=== PATIENT | male | born 1965 | race Two or more races ===

== ENCOUNTER 2021-04-25 14:59 | Outpatient (REF) | payer OTHER, SELFPAY ==
--- NOTE | ~2021-04-25 | XR_ITS ---
EXAMINATION: RIGHT ELBOW, RIGHT FOREARM AND RIGHT HAND X-RAY CLINICAL INFORMATION: Elbow pain. Paresthesias of the skin in the hand and forearm COMPARISON: None TECHNIQUE: 3 views of the right elbow, 2 views of the right forearm 3 views of the right hand FINDINGS: Right elbow: Bone alignment is normal. No fracture or dislocation is seen. Joint spaces are normal. There is no joint effusion. There is a small osteophyte or spur at the triceps tendon insertion to the olecranon. Right forearm: Bone alignment is normal. No fracture or dislocation is seen. Joint spaces are normal. Soft tissues are normal. Right hand: Bone alignment is normal. No fracture or dislocation is seen. Joint spaces are normal. Soft tissues are normal. XR/XR hand RT min 3V IMPRESSION: Small olecranon osteophyte at the triceps tendon insertion. Unremarkable forearm and right hand.
--- NOTE | ~2021-04-25 | XR_ITS ---
EXAMINATION: RIGHT ELBOW, RIGHT FOREARM AND RIGHT HAND X-RAY CLINICAL INFORMATION: Elbow pain. Paresthesias of the skin in the hand and forearm COMPARISON: None TECHNIQUE: 3 views of the right elbow, 2 views of the right forearm 3 views of the right hand FINDINGS: Right elbow: Bone alignment is normal. No fracture or dislocation is seen. Joint spaces are normal. There is no joint effusion. There is a small osteophyte or spur at the triceps tendon insertion to the olecranon. Right forearm: Bone alignment is normal. No fracture or dislocation is seen. Joint spaces are normal. Soft tissues are normal. Right hand: Bone alignment is normal. No fracture or dislocation is seen. Joint spaces are normal. Soft tissues are normal. XR/XR forearm RT 2V IMPRESSION: Small olecranon osteophyte at the triceps tendon insertion. Unremarkable forearm and right hand.
--- NOTE | ~2021-04-25 | XR_ITS ---
EXAMINATION: RIGHT ELBOW, RIGHT FOREARM AND RIGHT HAND X-RAY CLINICAL INFORMATION: Elbow pain. Paresthesias of the skin in the hand and forearm COMPARISON: None TECHNIQUE: 3 views of the right elbow, 2 views of the right forearm 3 views of the right hand FINDINGS: Right elbow: Bone alignment is normal. No fracture or dislocation is seen. Joint spaces are normal. There is no joint effusion. There is a small osteophyte or spur at the triceps tendon insertion to the olecranon. Right forearm: Bone alignment is normal. No fracture or dislocation is seen. Joint spaces are normal. Soft tissues are normal. Right hand: Bone alignment is normal. No fracture or dislocation is seen. Joint spaces are normal. Soft tissues are normal. XR/XR elbow RT 2V IMPRESSION: Small olecranon osteophyte at the triceps tendon insertion. Unremarkable forearm and right hand.
== END 2021-04-25 15:00 | disposition home or self-care (01) ==
LOC: HO.XRAY 14:59
PROVIDERS: PCP Nurse Practitioner Primary Care; Visit Provider Registered Nurse
DX: M25.521 Pain in right elbow (principal); R20.0 Anesthesia of skin; R20.2 Paresthesia of skin
CPT/HCPCS: 73070; 73090; 73130

== ENCOUNTER 2021-08-14 14:49 | Outpatient (REF) | payer OTHER, SELFPAY ==
[2021-08-14 16:53] LABS: Hematocrit 44.5 % (42-52); Hemoglobin 14.9 g/dl (14.0-18.0); Mean Corpuscular HGB Conc 33.5 g/dl (31.0-36.0); Mean Corpuscular Hemoglobin 31.5 pg (27.0-33.0); Mean Corpuscular Volume 94.1 fL (80-98); Mean Platelet Volume 12.7 fL (9.4-12.4); Platelet Count 170 X10*3/uL (160-400); Red Blood Count 4.73 X10*6/uL (4.60-5.80); Red Cell Distribution Width 13.5 % (11.0-16.0); White Blood Count 12.1 X10*3/uL (4.8-10.8)
[2021-08-14 17:17] LABS: Alanine Aminotransferase 22 U/L (0-40); Albumin Level 4.5 g/dL (3.5-5.0); Alkaline Phosphatase 96 U/L (39-117); Anion Gap 12 (12-20); Aspartate Amino Transferase 47 U/L (5-37); Bilirubin Total 0.4 mg/dL (0.0-1.0); Blood Urea Nitrogen 11 mg/dL (9-16); C Reactive Protein 1.47 mg/dL (< or = 0.50); Calcium 9.4 mg/dL (8.4-10.2); Carbon Dioxide 25 mmol/L (22-29); Chloride 106 mmol/L (96-108); Estimated Glomerular Filt Rate > 60; Glucose Random 95 mg/dL (60-115); Lipase 19 U/L (8-78); Potassium 4.2 mmol/L (3.3-5.1); Sodium 139 mmol/L (135-145); Total Protein 7.6 g/dL (6.5-8.0)
[2021-08-14 17:48] LABS: Folate 10.7 ng/mL (> or = 4.0); Vitamin B12 254 pg/mL (200-900)
[2021-08-18 15:21] LABS: Vitamin D 25-OH, D2 <4 ng/mL; Vitamin D 25-OH, D3 24 ng/mL; Vitamin D 25-OH, Total 24 ng/mL (30-100)
== END 2021-08-14 14:50 | disposition home or self-care (01) ==
LOC: HO.LAB 14:49
PROVIDERS: PCP Nurse Practitioner Primary Care; Referring Provider Nurse Practitioner Primary Care; Visit Provider Nurse Practitioner Family
DX: K21.9 Gastro-esophageal reflux disease without esophagitis (principal); R19.7 Diarrhea, unspecified; R14.0 Abdominal distension (gaseous); K58.0 Irritable bowel syndrome with diarrhea; K58.9 Irritable bowel syndrome, unspecified; E55.9 Vitamin D deficiency, unspecified
CPT/HCPCS: 36415; 80053; 82306; 82607; 82746; 83690; 84443; 85027; 86140; 99202

== ENCOUNTER 2021-08-16 08:06 | Outpatient (REF) | payer OTHER, SELFPAY ==
--- NOTE | ~2021-08-16 | CT_ITS ---
EXAMINATION: CT ABDOMEN AND PELVIS WITH CONTRAST CLINICAL INFORMATION: Abdominal pain COMPARISON: None TECHNIQUE: Multidetector volumetric images were obtained from the superior aspect of the liver through the pubic symphysis following administration 85 mL of Omnipaque 350 intravenous contrast. Sagittal and coronal reformatted images were obtained on the technologist's workstation. Oral contrast: Yes This CT examination was performed using dose optimization techniques as appropriate, variously including the following: *Automated exposure control *Adjustment of mA and/or kV according to patient size (this includes techniques or standardized protocols for targeted exams where dose is matched to indication/reason for exam; i.e. extremities or head) *Use of iterative reconstruction technique DLP: 275 mGy-cm FINDINGS: LUNG BASES: There is a 5 mm peripheral or subpleural left lower lobe nodule. The lung bases are otherwise clear. LIVER, GALLBLADDER, AND BILIARY TREE: The liver is normal in size, shape, and attenuation. No focal hepatic lesion or biliary ductal dilatation is present. The gallbladder is unremarkable with no evidence of radiopaque gallstones, gallbladder wall thickening, or obvious pericholecystic inflammatory changes. PANCREAS: Unremarkable. SPLEEN: Unremarkable. ADRENAL GLANDS: Unremarkable. KIDNEYS AND URETERS: There are bilateral renal cysts. Largest cyst measures 3 cm in the upper pole of the right kidney. No imaging follow-up needed. There is a small 3 mm right lower pole renal stone. The kidneys are otherwise unremarkable. BLADDER: Unremarkable. GASTROINTESTINAL TRACT: There is stool throughout the colon suggestive of constipation. The small and large bowel are unremarkable. The appendix is unremarkable. ABDOMINAL WALL: No significant hernia is appreciated. LYMPH NODES: Normal. VASCULAR: There is evidence of atherosclerotic disease. Vascular structures are otherwise unremarkable. PELVIC VISCERA: Unremarkable. OSSEOUS STRUCTURES: There is degenerative disc disease at L5-S1. CT/CT abdomen pelvis w con IMPRESSION: Constipation. Bilateral renal cysts. Small nonobstructing right lower pole renal stone.
[2021-08-16] MEDS: iohexoL 350 MG/ML 100 ML INFUS..BTL IV (12:11)
[2021-08-16] MEDS: Barium Sulfate Oral (Mocha) 450 ML ORAL.SUSP 900 ML PO (12:12)
== END 2021-08-16 08:07 | disposition home or self-care (01) ==
LOC: HO.CT 08:06
PROVIDERS: PCP Nurse Practitioner Primary Care; Visit Provider Nurse Practitioner Family
DX: R10.9 Unspecified abdominal pain (principal)
CPT/HCPCS: 74177; 87338; Q9967

== ENCOUNTER 2021-09-19 08:12 | Outpatient (REF) | payer OTHER, SELFPAY ==
--- NOTE | 2021-09-19 08:18 | EMG_ITS ---
This is a 56-year-old man with a 4-month history of right upper extremity pain, numbness, and tingling. PHYSICAL EXAMINATION: On examination, he is alert and oriented with normal intellectual functions. Cranial nerves II through XII are normal. Muscle tone and strength are normal. No Tinel or Phalen sign. IMPRESSION: Rule out carpal tunnel syndrome. Nerve conduction EMG study: Normal motor and sensory nerve conduction velocities in the right upper extremity. Normal EMG of the right C5-T1 innervated muscles. MD DANTE Montgomery/TRACY / [id number]
== END 2021-09-19 08:13 | disposition home or self-care (01) ==
LOC: HO.NEURO 08:12
PROVIDERS: Visit Provider Nurse Practitioner Primary Care
DX: M25.521 Pain in right elbow (principal); K21.9 Gastro-esophageal reflux disease without esophagitis; R19.7 Diarrhea, unspecified; K58.2 Mixed irritable bowel syndrome
CPT/HCPCS: 95885; 95910; 99212

== ENCOUNTER 2022-03-28 12:17 | Day surgery (SDC) | payer MEDICAID, SELFPAY ==
[2022-01-18 10:46] VITALS: BMI 21.2
--- NOTE | 2022-03-27 10:23 | HO.ANESPROP2 ---
Documented by User: Keke Leal NP 03/27/22 10:23 HPI - Anesthesia Eval Consult details Narrative: 57yo M for Upper Endoscopy and Colonoscopy [facility] Past Medical History Medical History Asthma GERD (gastroesophageal reflux disease) HTN (hypertension) IBS (irritable bowel syndrome) Family History Family History Father Asthma High blood pressure Mother Asthma High blood pressure Surgical History Surgical History Hx of endoscopy Social History Social History Alcohol intake: current Patient Tobacco Use Status: Current everyday Tobacco user Tobacco use type: Cigarette Cigarettes Per Day: 10 Advance Directives Information Provided: Yes (brochure mailed) Advance Directives on File: No Meds Allergies Allergy/AdvReac Type Severity Reaction Status Date / Time oxycodone [From Percocet] AdvReac Intermediate fast Verified 01/18/22 10:35 heartbeat Home Medications Medication Instructions Recorded Confirmed Last Taken Type albuterol sulfate 90 mcg/actuation 2 inh inhalation Q4-6H PRN Wheezing 08/14/21 01/18/22 03/28/22 History breath activated powder inhaler fluticasone propionate 110 1 puff inhalation Q12H 08/14/21 01/18/22 Unknown History mcg/actuation HFA aerosol inhaler (Flovent HFA) gabapentin 100 mg capsule 100 mg PO TID 08/14/21 01/18/22 Unknown History hydrochlorothiazide 25 mg tablet 25 mg PO DAILY 08/14/21 01/18/22 Unknown History montelukast 10 mg tablet 10 mg PO QPM 08/14/21 01/18/22 Unknown History (Regi) Exam Exam Date and Time: March 27, 2022 1023 Height,Weight and Vital Signs: Height 5 ft 5 in Weight 58.06 kg Assessment and Plan Assessment Anesthesia Assessment: Chart Reviewed Documented by User: Terri Watson MD 03/28/22 14:30 [facility] [place] Past Medical History Medical History Asthma GERD (gastroesophageal reflux disease) HTN (hypertension) IBS (irritable bowel syndrome) Family History Family History Father Asthma High blood pressure Mother Asthma High blood pressure Family history of problems with anesthesia: No Surgical History Surgical History Hx of endoscopy History of Problems with Anesthesia: No Social History Social History Alcohol intake: current Patient Tobacco Use Status: Current everyday Tobacco user Tobacco use type: Cigarette Cigarettes Per Day: 10 Advance Directives Information Provided: Yes (brochure mailed) Advance Directives on File: No Meds Allergies Allergy/AdvReac Type Severity Reaction Status Date / Time oxycodone [From Percocet] AdvReac Intermediate fast Verified 01/18/22 10:35 heartbeat Home Medications Medication Instructions Recorded Confirmed Last Taken Type albuterol sulfate 90 mcg/actuation 2 inh inhalation Q4-6H PRN Wheezing 08/14/21 01/18/22 03/28/22 History breath activated powder inhaler fluticasone propionate 110 1 puff inhalation Q12H 08/14/21 01/18/22 Unknown History mcg/actuation HFA aerosol inhaler (Flovent HFA) gabapentin 100 mg capsule 100 mg PO TID 08/14/21 01/18/22 Unknown History hydrochlorothiazide 25 mg tablet 25 mg PO DAILY 08/14/21 01/18/22 Unknown History montelukast 10 mg tablet 10 mg PO QPM 08/14/21 01/18/22 Unknown History (Regi) Exam Height,Weight and Vital Signs: Height 5 ft 5 in Weight 58.06 kg Vital Signs Temp Pulse Resp BP Pulse Ox O2 Del Method 03/28/22 12:27 97 F 78 18 175/114 H 97 Room Air Airway Mallampati Class: II TM Dist: >3cm Neck ROM: Full Loose/Missing/Broken Teeth: Yes (Missing 2 topg, 1 bottom left with chipped front bottom) Heart: RRR Lungs: CTAB Assessment and Plan Assessment Anesthesia Assessment: Anesthesia Plan Discussed Final Anesthetic Review Family History of Problems with Anesthesia: No History of Problems with Anesthesia: No NPO: Yes ASA Class: II Final Preanesthetic Review: No Changes in Pt Med Stat, Meds/Allgs Chart Reviewed, Consent Obtained/Reviewed and Anes Risks/Benef Reviewed Patient Risk: Low Procedure Risk: Low Assessment/Block/Sedation in SS: Assess/Block/Sedation-SS Anesthetic Plan Anesthetic Plan: MAC: Disposition: Standard PACU
[2022-03-28 12:27] VITALS: BP 175/114; PULSE 78; RESP 18; TEMP 36.1; O2SAT 97
--- NOTE | 2022-03-28 12:34 | MHC.SHP ---
Pre-Procedural Eval Section A Date of Service: 03/28/22 Section B Chief Complaint: reflux disease,screening Relevant Family History (Specify if Yes): No Relevant Social History: Tobacco Use Present Medications: see Short Stay Collaborative assessment Medical History: Significant History (Asthma GERD (gastroesophageal reflux disease) HTN (hypertension) IBS (irritable bowel syndrome)) History of Previous Operations: Relevant previous surgery/procedure and date(s) (Hx of endoscopy) Allergies: Allergies Allergy/AdvReac Type Severity Reaction Status Date / Time oxycodone [From Percocet] AdvReac Intermediate fast Verified 01/18/22 10:35 heartbeat Review of Systems Sugical H&P ROS: Negative: Constitution, Cardiovascular, Respiratory, Neurological, Psychiatric, Hem-Onc, Allergic/Immunologic, Gastrointestinal, Genitourinary, Musculoskeletal, Integumentary, Endocrine and Eyes/Ears/Nose/Throat Exam Surgical H&P Exam: Normal: HEENT, Normal: Heart, Normal: Lungs, Normal: Extremities, Normal: Abdomen, Normal: Skin and Normal: Neurological Plan Diagnosis/Plan: Unchanged I have reviewed the history and physical and performed a pertinent physical examination on my patient. No changes have occurred unless specified.
[2022-03-28] MEDS: Lactated Ringers 1,000 ML 100 ML IVCONT (12:52)
--- NOTE | 2022-03-28 13:27 | PM.OP ---
Brief Operative Note Date of Service: 03/28/22 Pre-op diagnosis: gerd and colon screening Post-op diagnosis: same Procedure: see op note Surgeon: Barrett Truong MD Anesthesia: MAC Was an Factory Maintenance Manager used for this Procedure?: No Estimated blood loss (mL): 0 Condition: stable Disposition: PACU
--- NOTE | 2022-03-28 13:28 | P.OP_ITS ---
Operative Note Operative Note Date of Service: 03/28/22 Narrative: Operative Information Procedure Description: EGD, Colonoscopy Indication: GERD and colon screening Anesthesia: MAC FLEXIBLE TRANSORAL UPPER GASTROINTESTINAL ENDOSCOPY AND COLONOSCOPY PROCEDURE NOTE UPPER ENDOSCOPY Consent: Indications for the procedure and potential complications of bleeding, perforation, reaction to medications and missed diagnosis were discussed with the patient and informed consent was obtained. Instrument: Olympus GIF H 190 J mid size upper endoscope Monitoring: Vital signs and clinical assessment, continuous EKG monitoring, Pulse oximetry, Carbon Dioxide monitoring and blood pressure monitoring were done throughout the procedure. Procedure: The patient was placed in the left lateral decubitis position and pre-procedure medications were administered and a bite block was placed. The endoscope was inserted into the mouth and advanced under direct vision to the third part of duodenum. A careful inspection was made as the upper endoscope was withdrawn including a retroflexed examination of the proximal stomach; Findings and interventions are described below. Findings: Larynx:normal Esophagus: GE junction at 40 cm, diaphragm hiatus at 40 cm, normal mucosa Stomach: Scattered areas of erythema and induration with granularity. Biopsies were obtained. Grade 2 flap valve on retroflexed examination of the cardia. Duodenum: Erosive bulbar duodenitis, bx taken Intervention: Biopsies as noted above COLONOSCOPY Instrument: Olympus variable stiffness adult scope 190L Colonoscopy Monitoring: Vital signs and clinical assessment, continuous EKG monitoring, Pulse oximetry, Carbon Dioxide monitoring and blood pressure monitoring were done throughout the procedure. Colon withdrawal time was 12 minutes. Procedure: The patient was placed in the left lateral decubitis position and pre-procedure medications were administered. After a digital rectal examination of the ano-rectum, the video colonoscope was inserted into the rectum and advanced through the colon to the cecum/TI. The colonoscope was slowly withdrawn in a retrograde panoramic fashion and the colon mucosa was carefully examined including a retroflexed view of the rectum. Findings and interventions are described below. Procedure Difficulty: moderate Findings: Terminal Ileum-not intubated due to looping Cecum:normal Ascending Colon: normal Transverse Colon -normal Descending Colon:normal Sigmoid Colon: 8-10 mm sessile polyp removed with cold snare Rectum: Retroflexion with large internal hemorrhoids, grade II Anorectum - normal Colon preparation: [place] Bowel Preparation Scale Right colon; 2 Transverse colon: 2 Left colon; 1 (0 = Unprepared colon segment with mucosa not seen due to solid stool that cannot be cleared. 1 = Portion of mucosa of the colon segment seen, but other areas of the colon segment not well seen due to staining, residual stool and/or opaque liquid. 2 = Minor amount of residual staining, small fragments of stool and/or opaque liquid, but mucosa of colon segment seen well. 3 = Entire mucosa of colon segment seen well with no residual staining, small f ragments of stool or opaque liquid) Impression and Post Procedure Diagnosis: Endoscopy Findings: gastritis erosive duodenitis Colonoscopy Findings: polyp internal hemorrhoids Plan: Await Pathology results Repeat Colonoscopy in 1-2 years due to polyp and left sided prep or earlier if clinically indicated High fiber diet leaflet avoid straining at stool, epsom salts and sitz bath, anusol supps or cream if H pylori pos then treat Above findings were reviewed with the patient and relevant handouts were provided if indicated.
[2022-03-28 14:33] VITALS: BP 90/51; PULSE 77; RESP 16; TEMP 36.6; O2SAT 97
[2022-03-28 14:48] VITALS: BP 74/38; PULSE 80; RESP 18; O2SAT 97
[2022-03-28 14:50] VITALS: BP 138/73; O2SAT 97
[2022-03-28 15:03] VITALS: BP 131/80; PULSE 74; RESP 18; O2SAT 97
[2022-03-28 15:18] VITALS: BP 135/87; PULSE 75; RESP 18; TEMP 36.7; O2SAT 97
== END 2022-03-28 15:45 | disposition home or self-care (01) ==
PROVIDERS: PCP Nurse Practitioner Primary Care; Visit Provider Internal Medicine Gastroenterology
PROC: (CPT 45385; principal; 2022-03-28 13:40)
DX: Z12.11 Encounter for screening for malignant neoplasm of colon (principal); D12.5 Benign neoplasm of sigmoid colon; K64.1 Second degree hemorrhoids; K58.9 Irritable bowel syndrome, unspecified; K21.9 Gastro-esophageal reflux disease without esophagitis; K29.50 Unspecified chronic gastritis without bleeding; K29.80 Duodenitis without bleeding; K44.9 Diaphragmatic hernia without obstruction or gangrene; I10 Essential (primary) hypertension; J45.909 Unspecified asthma, uncomplicated; Z79.51 Long term (current) use of inhaled steroids; Z79.899 Other long term (current) drug therapy; Z88.8 Allergy status to other drugs, medicaments and biological substances; F17.210 Nicotine dependence, cigarettes, uncomplicated
CPT/HCPCS: 45385; 43239; 88305; 88342; J3010

== ENCOUNTER → 2022-04-10 13:24 | Outpatient (BNVA) | payer MEDICAID, SELFPAY | PROVIDERS: PCP Nurse Practitioner Primary Care; Visit Provider Nurse Practitioner Family | DX: K64.1 Second degree hemorrhoids (principal); K21.9 Gastro-esophageal reflux disease without esophagitis; K58.2 Mixed irritable bowel syndrome; D36.9 Benign neoplasm, unspecified site; Z98.890 Other specified postprocedural states | CPT/HCPCS: 99212 ==

== ENCOUNTER 2022-04-16 08:16 | Outpatient (REF) | payer MEDICAID, SELFPAY | END 2022-04-16 08:17 | disposition home or self-care (01) | LOC: HO.LNP 08:16 | PROVIDERS: PCP Nurse Practitioner Primary Care; Visit Provider Internal Medicine Gastroenterology | DX: Z11.2 Encounter for screening for other bacterial diseases (principal) | CPT/HCPCS: 83013; 99211 ==

== ENCOUNTER → 2022-04-17 08:15 | Outpatient (BNVA) | payer MEDICAID, SELFPAY | PROVIDERS: PCP Nurse Practitioner Primary Care; Visit Provider Nurse Practitioner Family | DX: Z11.0 Encounter for screening for intestinal infectious diseases (principal) | CPT/HCPCS: 83013; 99211 ==

== ENCOUNTER 2022-04-17 08:40 | Outpatient (REF) | payer MEDICAID, SELFPAY ==
[2022-04-19 11:45] LABS: H Pylori Breath Test Negative (Negative)
== END 2022-04-17 08:41 | disposition home or self-care (01) ==
LOC: HO.LNP 08:40
PROVIDERS: Visit Provider Nurse Practitioner Family
DX: Z11.2 Encounter for screening for other bacterial diseases (principal)
CPT/HCPCS: 83013

== ENCOUNTER → 2022-05-06 13:36 | Outpatient (BNVA) | payer MEDICAID, SELFPAY | PROVIDERS: PCP Nurse Practitioner Primary Care; Visit Provider Surgery | DX: K64.9 Unspecified hemorrhoids (principal) | CPT/HCPCS: 46600; 99202 ==

== ENCOUNTER → 2022-05-31 10:51 | Outpatient (BNVA) | payer MEDICAID, SELFPAY | PROVIDERS: PCP Nurse Practitioner Primary Care; Visit Provider Nurse Practitioner Family | DX: K21.9 Gastro-esophageal reflux disease without esophagitis (principal) | CPT/HCPCS: 99212 ==

== ENCOUNTER → 2022-12-13 12:50 | Outpatient (BNVA) | payer MEDICAID, SELFPAY | PROVIDERS: PCP Nurse Practitioner Primary Care; Visit Provider Nurse Practitioner Family | DX: K21.9 Gastro-esophageal reflux disease without esophagitis (principal); Z79.899 Other long term (current) drug therapy; Z86.010 Personal history of colon polyps | CPT/HCPCS: 99212 ==

== ENCOUNTER 2024-04-06 08:26 | Outpatient (REF) | payer OTHER, SELFPAY ==
--- NOTE | ~2024-04-06 | XR_ITS ---
EXAMINATION: XR SHOULDER, RIGHT CLINICAL INFORMATION: Atraumatic shoulder pain COMPARISON: None available. TECHNIQUE: AP external rotation, Grashey, scapular Y, and axillary views of the right shoulder. FINDINGS: The bones and soft tissues are normal. No fracture. Glenohumeral and acromioclavicular alignment is anatomic with normal joint space. There is a small calcification at the insertion of the greater tuberosity consistent with calcific tendinosis. XR/XR shoulder RT min 2V IMPRESSION: 1. Mild calcific tendinosis. Otherwise unremarkable plain radiographs of the right shoulder.
[2024-04-06 09:31] LABS: Estimated Average Glucose 123 mg/dL; Hemoglobin A1c % 5.9 % (<6.0)
[2024-04-06 09:45] LABS: Alanine Aminotransferase 29 U/L (0-40); Albumin Level 4.3 g/dL (3.5-5.0); Alkaline Phosphatase 107 U/L (39-117); Anion Gap 12 (12-20); Aspartate Amino Transferase 63 U/L (5-37); Bilirubin Total 0.6 mg/dL (0.0-1.0); Blood Urea Nitrogen 12 mg/dL (9-16); Calcium 9.6 mg/dL (8.4-10.2); Carbon Dioxide 26 mmol/L (22-29); Chloride 105 mmol/L (96-108); Cholesterol 300 mg/dL (<200); Estimated Glomerular Filt Rate > 60; Glucose Random 133 mg/dL (60-115); HDL Cholesterol 34 mg/dL (>40); LDL Cholesterol Calculated 222 mg/dL (<100); Potassium 4.6 mmol/L (3.3-5.1); Sodium 138 mmol/L (135-145); Total Protein 8.1 g/dL (6.5-8.0); Triglycerides 221 mg/dL (<150)
== END 2024-04-06 08:27 | disposition home or self-care (01) ==
LOC: HO.XRAY 08:26
PROVIDERS: PCP Nurse Practitioner Primary Care; Visit Provider Nurse Practitioner Primary Care
DX: M25.511 Pain in right shoulder (principal); I10 Essential (primary) hypertension; G89.29 Other chronic pain; R73.03 Prediabetes; Z00.00 Encounter for general adult medical examination without abnormal findings
CPT/HCPCS: 36415; 73030; 80053; 80061; 83036

== ENCOUNTER 2024-06-02 12:35 | Outpatient (AMB) | payer OTHER, SELFPAY ==
--- NOTE | 2024-06-02 12:39 | A.OFFVIS_ITS ---
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 The patient states that his symptoms have gotten worse over the last 2 years in spite of continued non operative treatments. He has failed the last 3 months of conservative treatment. Has done physical therapy exercises which aggravated his pain. He has also tried Tylenol, anti-inflammatory medicines and gabapentin which gave him minimal relief. The patient states that he has not been able to lift his right hand above shoulder height for the last year. Filling Station Attendant Required: Yes Filling Station Attendant Language: Mosotho Accompanied by: Significant Other Allergies oxycodone [From Percocet] Adverse Reaction (Intermediate, Verified 06/02/24 12:58) fast heartbeat Medication List - Last Reconciled 06/02/24 by Volodymyr Conrad MD albuterol sulfate 90 mcg/actuation 2 inhalations inhalation Q4-6H PRN fluticasone propionate 110 mcg/actuation (Flovent HFA) 1 puff inhalation Q12H gabapentin 100 mg PO TID hydrochlorothiazide 25 mg PO DAILY losartan 50 mg PO DAILY methylcellulose (laxative) (Citrucel) 500 mg PO DAILY 30 days montelukast (Singulair) 10 mg PO QPM pantoprazole 40 mg PO DAILY PFSH Medical History Bleeding hemorrhoids Tubular adenoma HTN (hypertension) Asthma IBS (irritable bowel syndrome) GERD (gastroesophageal reflux disease) Surgical History History of esophagogastroduodenoscopy (EGD) Hx of endoscopy Family History Father Asthma High blood pressure Mother Asthma High blood pressure Social History Alcohol intake: current Patient Tobacco Use Status: Current everyday Tobacco user Tobacco use type: Cigarette Cigarettes Per Day: 10 Physical Exam Const Other: Well-nourished well-developed very friendly male awake alert and oriented x3 in no acute distress Extrem Other: Right shoulder examination shows 3/5 strength with supraspinatus testing, tenderness over his acromioclavicular joint, positive impingement signs, no instability Results Reviewed Results Reviewed: X-rays of the patient's right shoulder show severe acromioclavicular joint narrowing, a type 3 acromion, no acute bony abnormalities Assessment & Plan Assessment & Plan (1) Right shoulder pain: Code(s): M25.511 - Pain in right shoulder Category: Medical Plan Mr. Moeller presents with progressively worsening right shoulder pain and weakness most likely due to a full-thickness rotator cuff tear. Thus, I will send the patient for an MRI right shoulder for further evaluation. I will see him back once the MRI is completed to discuss the findings and treatment options. The patient will continue with his range of motion exercises in the meantime. Feel free to call me at any time should questions regarding his orthopedic management arise. Thank you very much for asking me to see this very friendly gentleman. I spent 20 minutes in reviewing the patient's records and imaging studies, seeing the patient and documenting in the medical record. Orders: Orders MR shoulder RT wo con Today M25.511 - Pain in right shoulder Coding Level of Care Code New Pt Level 3 (92080) Diagnoses Right shoulder pain M25.511
== END 2024-06-02 13:17 | disposition home or self-care (01) ==
PROVIDERS: PCP Nurse Practitioner Primary Care; Visit Provider Orthopaedic Surgery
DX: M25.511 Pain in right shoulder (principal)
CPT/HCPCS: 99203

== ENCOUNTER → 2024-06-02 12:35 | Outpatient (BNVA) | payer SELFPAY | PROVIDERS: PCP Nurse Practitioner Primary Care; Visit Provider Orthopaedic Surgery | DX: M25.511 Pain in right shoulder (principal); R53.1 Weakness | CPT/HCPCS: 99202 ==

== ENCOUNTER 2024-07-21 10:33 | Outpatient (AMB) | payer OTHER, SELFPAY ==
--- NOTE | 2024-07-21 10:41 | MHC.OFFVIS ---
Vital Signs 07/21/24 10:42 Height 5 ft 6 in Weight 153 lb 14.122 oz BMI 24.8 BP 150/78 H Blood Pressure Location Rt brachial Position Sitting Pulse 72 Pulse Source Pulse Oximeter Pulse Oximetry (%) 98 Oxygen Delivery Method Room Air Intake Visit Reasons: pt req follow up Intake Note: Braxton presents in office today for a requested FUV. CC; Pt is here to re establish care, last seen as of 12/13/2022. Pt reports that his sx have remained more or less stable. Pt denies any particular sx or concerns at this time. His spouse does report that the pt does still experience chronic GERD sx. Room Service Attendant Required: Yes Room Service Attendant Services: Room Service Attendant Offered & Declined Room Service Attendant Name: Family Accompanied by: Spouse Allergies oxycodone [From Percocet] Adverse Reaction (Intermediate, Verified 07/21/24 10:43) fast heartbeat HPI HPI pt req follow up: Details: LAST VISIT GERD (gastroesophageal reflux disease) Continue current dose of pantoprazole. Discussed with patient the importance of avoiding dietary triggers and late night snacking. Staying upright for minimal 3 hours after meals discussed patient. Patient will return in 4 months we will discuss for him going for upper endoscopy to re-evaluate as well as for colonoscopy. Tubular adenoma Suboptimal prep in March of 2022, tubular adenoma without high-grade dysplasia or carcinoma was found. I will see patient in 4 months, sooner on as needed basis. Patient is agreeable to this plan and verbalizes understanding of instructions. He was given the opportunity to ask questions all questions answered. ? Thank you for allowing me to participate in his care Plan Medications Refilled pantoprazole take one tablet half an hour before breakfast 40 mg PO DAILY 90 tabs 2RF K21.9 Discontinued sucralfate Discontinued Reason: Patient no longer taking 10 mL PO BEDTIME 400 mL 3RF K21.9 TODAY'S VISIT: Patient is here today for follow-up and for requested visit. He continues to have epigastric pain postprandially no matter what he eats. Patient currently is taking pantoprazole and reports that he will frequently have symptoms of epigastric pain and acid reflux. Patient denies any nausea or vomiting. Patient had colonoscopy in March of 2022 and had suboptimal prep and was told to repeat colonoscopy in 1-2 years. Patient continues to be constipated and not able to move his bowels daily. Patient denies melena, hematochezia, unintentional weight loss or ribbon like stools. Patient reports occasional abdominal bloating specially when he has no bowel movement for 2-3 days. Patient denies any issues with anesthesia in the past. No history of sleep apnea. Not on any anticoagulation medication. Denies any cardiac or respiratory symptoms. [facility] Medical History Bleeding hemorrhoids Tubular adenoma HTN (hypertension) Asthma IBS (irritable bowel syndrome) GERD (gastroesophageal reflux disease) Surgical History History of esophagogastroduodenoscopy (EGD) Hx of endoscopy Family History Father Asthma High blood pressure Mother Asthma High blood pressure Social History Alcohol intake: current Patient Tobacco Use Status: Current everyday Tobacco user Tobacco use type: Cigarette Cigarettes Per Day: 10 Review of Systems Const Denies weight gain and Denies weight loss ENT Reports no additional complaints, Denies dysphagia and Denies odynophagia Card Reports no additional complaints Resp Reports no additional complaints GI Denies abdominal pain, Denies belching, Denies melena, Denies bloating, Reports constipation, Denies dysphagia, Denies excessive flatus, Denies dyspepsia, Reports heartburn, Denies diarrhea, Denies loose stools, Denies nausea, Denies odynophagia and Denies vomiting Reports no additional complaints Musc Reports no additional complaints Neuro Reports no additional complaints Psych Reports no additional complaints Endo Reports no additional complaints Physical Exam Vital Signs: Last Vital Signs Pulse 72 07/21/24 10:42 BP 150/78 H 07/21/24 10:42 Pulse Ox 98 07/21/24 10:42 Oxygen Delivery Method Room Air 07/21/24 10:42 BMI result Body Mass Index 24.8 Const General: healthy appearing, no acute distress and well developed Nutritional Appearance: well nourished Orientation/consciousness: patient oriented x3 Resp Effort & Inspection: normal respiratory effort, able to speak in complete sentences, no tracheal deviation and symmetric chest movement Auscultation: clear to auscultation bilaterally Cardio Rate: regular rate GI Inspection: Yes normal to inspection, No distended and Yes obesity Palpation (GI): Soft to palpation, not firm, nontender and No hepatosplenomegaly present Auscultation: normal bowel sounds General: Yes no CVA tenderness Back/Spine/Pelvis Back: no CVA tenderness Skin General skin exam: elasticity normal, turgor normal and dry skin Neuro General: patient oriented x3 Psych Appearance: grossly normal Mental Status: mental status grossly normal Assessment & Plan Assessment & Plan (1) Tubular adenoma: Code(s): D36.9 - Benign neoplasm, unspecified site Category: Medical (2) GERD (gastroesophageal reflux disease): Code(s): K21.9 - Gastro-esophageal reflux disease without esophagitis Qualifiers: Esophagitis presence: esophagitis presence not specified Qualified Code(s): K21.9 - Gastro-esophageal reflux disease without esophagitis (3) Constipation: Code(s): K59.00 - Constipation, unspecified Qualifiers: Constipation type: slow transit constipation Qualified Code(s): K59.01 - Slow transit constipation (4) Screen for colon cancer: Code(s): Z12.11 - Encounter for screening for malignant neoplasm of colon Plan Will change PPI to omeprazole. Patient will be sent for upper endoscopy to rule out gastritis, duodenitis, esophagitis, gastric or peptic ulcer, Garcia's, H pylori. Patient was encouraged to avoid dietary triggers and late night snacking. Staying upright for minimum 3 hours after meals discussed with patient. Patient will start taking Dulcolax. Had suboptimal prep last colonoscopy. Patient can take Dulcolax every day. Encouraged to take it Dulcolax daily week before procedure with 4 tablets day before procedure followed by split MiraLax prep. What to expect before during and after procedure discussed with patient. Stressed the importance of good bowel prep and clear liquid diet day before procedure. Patient and his are both agreeable to this plan and verbalizes understanding of instructions. They were given the opportunity to ask questions and all questions answered. Thank you for allowing me to participate in his care Medications: New bisacodyl (Dulcolax (bisacodyl)) 10 mg (2 x 5 mg) PO BEDTIME 180 tabs 4RF omeprazole 40 mg PO DAILY 90 caps 3RF K21.9 - Gastro-esophageal reflux disease without esophagitis polyethylene glycol 3350 (Miralax) As directed by gastroenterology department at [facility] 238 grams PO ONCE 238 grams 0RF Z12.11 - Encounter for screening for malignant neoplasm of colon Discontinued pantoprazole take one tablet half an hour before breakfast Discontinued Reason: Doctor's Order 40 mg PO DAILY 90 tabs 2RF K21.9 - Gastro-esophageal reflux disease without esophagitis Coding Level of Care Code Est Pt Level 3 (60384) Diagnoses Tubular adenoma D36.9 Gastroesophageal reflux disease, unspecified whether esophagitis present K21.9 Esophagitis presence: esophagitis presence not specified Slow transit constipation K59.01 Constipation type: slow transit constipation Screen for colon cancer Z12.11 Time Spent (min) 30 Comment 20 minutes spent with patient and additional 10 minutes spent reviewing his records
[2024-07-21 10:42] VITALS: BP 150/78; PULSE 72; O2SAT 98; BMI 24.8
== END 2024-07-21 11:22 | disposition home or self-care (01) ==
PROVIDERS: PCP Nurse Practitioner Primary Care; Visit Provider Nurse Practitioner Family
DX: D36.9 Benign neoplasm, unspecified site (principal); K21.9 Gastro-esophageal reflux disease without esophagitis; K59.01 Slow transit constipation; Z12.11 Encounter for screening for malignant neoplasm of colon
CPT/HCPCS: 99213

== ENCOUNTER → 2024-07-21 10:33 | Outpatient (BNVA) | payer OTHER, SELFPAY | PROVIDERS: PCP Nurse Practitioner Primary Care; Visit Provider Nurse Practitioner Family | DX: K21.9 Gastro-esophageal reflux disease without esophagitis (principal); R10.13 Epigastric pain; D36.9 Benign neoplasm, unspecified site; K59.01 Slow transit constipation | CPT/HCPCS: 99212 ==

== ENCOUNTER 2024-08-16 10:41 | Outpatient (REF) | payer OTHER, SELFPAY ==
--- NOTE | ~2024-08-16 | XR_ITS ---
EXAMINATION: XR ORBITS PRE-MRI CLINICAL INFORMATION: Pre-MRI orbits, rule out foreign body. TECHNIQUE: 3 views of the orbits. FINDINGS: No radiopaque foreign body appreciated in the region of the orbits. Dental hardware present. XR/XR pre mri screening IMPRESSION: No radiopaque foreign body appreciated in the region of the orbits. Dental hardware present. Electronically signed by: Radha Blunt MD 08/16/2024 12:22 PM EDT
== END 2024-08-16 10:42 | disposition home or self-care (01) ==
LOC: HO.XRAY 10:41
PROVIDERS: PCP Nurse Practitioner Primary Care; Visit Provider Internal Medicine
DX: Z13.89 Encounter for screening for other disorder (principal)

== ENCOUNTER 2024-08-17 16:51 | Outpatient (REF) | payer OTHER, SELFPAY ==
--- NOTE | ~2024-08-17 | MR_ITS ---
EXAMINATION: MR SHOULDER WITHOUT CONTRAST, RIGHT CLINICAL INFORMATION: Shoulder pain. Patient reports pain for 12 years. COMPARISON: None available. TECHNIQUE: MRI of the shoulder without contrast was performed on a high-field scanner. FINDINGS: ROTATOR CUFF: Mild supraspinatus and infraspinatus tendinosis. Possible component of intrasubstance partial tear in the insertional conjoined fibers of the supraspinatus/infraspinatus, measuring 0.8 x 0.6 cm (AP x ML). Teres minor is intact. Mild subscapularis tendinosis. No muscle atrophy or fatty infiltration. BICEPS: Intact CORACOACROMIAL ARCH: The undersurface of the acromion is curved with no subacromial spur. Mild acromioclavicular arthritis. Trace subacromial subdeltoid bursitis.. LABRUM/CAPSULE: Increased T2 signal in the superior labrum and in the biceps labral anchor, from degeneration and probable tear given the signal intensity. GLENOHUMERAL JOINT/MARROW: No fracture. No aggressive marrow replacing lesion. Small joint fluid. No axillary lymphadenopathy. MR/MR shoulder RT wo con IMPRESSION: 1. Mild supraspinatus and infraspinatus tendinosis. Possible 0.8 x 0.6 cm intrasubstance partial tear in the insertional conjoined fibers of the supraspinatus/infraspinatus. 2. Mild subscapularis tendinosis. 3. Findings suspicious for a superior labral degeneration and probable tear.. 4. Mild acromioclavicular arthritis. Trace subacromial subdeltoid bursitis. Electronically signed by: Nav Ron MD 09/05/2024 06:37 PM EST
== END 2024-08-17 16:52 | disposition home or self-care (01) ==
LOC: HO.MRI 16:51
PROVIDERS: PCP Nurse Practitioner Primary Care; Visit Provider Orthopaedic Surgery
DX: M25.511 Pain in right shoulder (principal)
CPT/HCPCS: 73221

== ENCOUNTER 2024-09-03 08:45 | Day surgery (SDC) | payer OTHER, SELFPAY ==
[2024-09-01 14:33] VITALS: BMI 24.8
--- NOTE | 2024-09-02 09:40 | P.CONAN_ITS ---
Documented by User: Keke Leal NP 09/02/24 09:41 HPI - Anesthesia Eval Consult details Narrative: 59yo M for Upper Endoscopy and Colonoscopy [facility] Active Problems Active Problems: All Active Problems Right shoulder pain (Acute) Bleeding hemorrhoids (Acute) Tubular adenoma (Acute) Hemorrhoid (Acute) Past Medical History Medical History Bleeding hemorrhoids Tubular adenoma HTN (hypertension) Asthma IBS (irritable bowel syndrome) GERD (gastroesophageal reflux disease) Family History Family History Father Asthma High blood pressure Mother Asthma High blood pressure Family history of problems with anesthesia: No Surgical History Surgical History Hx of colonoscopy History of esophagogastroduodenoscopy (EGD) History of Problems with Anesthesia: No Social History Social History Household Members Other:: and niece Are you a primary children's zoo caretaker to a significant other at home: No Do you presently have visiting nurse or other home services: No Alcohol intake: current Patient Tobacco Use Status: Current everyday Tobacco user Tobacco use type: Cigarette Cigarettes Per Day: 10 Smoked in Last 30 Days: Yes Patient Interested in Nicotine Replacement: No Have you been hit, kicked, punched, or otherwise hurt by someone within the past year? If so, by whom?: No Are you DNR?: No Advance Directives: No Advance Directives Information Provided: Yes Recently lost weight without trying: No Nutrition Risks: No Nutritional Risk Meds Allergies Allergy/AdvReac Type Severity Reaction Status Date / Time oxycodone [From Percocet] AdvReac Intermediate fast Verified 09/03/24 09:31 heartbeat Home Medications ?Medication ?Instructions ?Recorded ?Confirmed ?Last Taken ?Type albuterol sulfate 90 mcg/actuation 2 inh inhalation Q4-6H PRN Wheezing 08/14/21 09/03/24 09/02/24 History breath activated powder inhaler fluticasone propionate 110 1 puff inhalation Q12H 08/14/21 09/03/24 Unknown History mcg/actuation HFA aerosol inhaler (Flovent HFA) gabapentin 100 mg capsule 100 mg PO TID 08/14/21 09/03/24 09/02/24 History montelukast 10 mg tablet 10 mg PO QPM 08/14/21 09/03/24 09/02/24 History (Singulair) losartan 50 mg tablet 100 mg PO DAILY 07/21/24 09/03/24 09/02/24 History rosuvastatin 5 mg tablet 5 mg PO DAILY 07/21/24 09/03/24 09/02/24 History Exam Height,Weight and Vital Signs: Height 5 ft 6 in Weight 69.797 kg Assessment and Plan Assessment Anesthesia Assessment: Chart Reviewed Final Anesthetic Review Family History of Problems with Anesthesia: No History of Problems with Anesthesia: No Documented by User: Terri Watson MD 09/03/24 10:22 [facility] Active Problems Active Problems: All Active Problems Right shoulder pain (Acute) Bleeding hemorrhoids (Acute) Tubular adenoma (Acute) Hemorrhoid (Acute) Smoker Past Medical History Medical History Bleeding hemorrhoids Tubular adenoma HTN (hypertension) Asthma IBS (irritable bowel syndrome) GERD (gastroesophageal reflux disease) Family History Family History Father Asthma High blood pressure Mother Asthma High blood pressure Family history of problems with anesthesia: No Surgical History Surgical History Hx of colonoscopy History of esophagogastroduodenoscopy (EGD) History of Problems with Anesthesia: No Social History Social History Household Members Other:: and niece Are you a primary children's zoo caretaker to a significant other at home: No Do you presently have visiting nurse or other home services: No Alcohol intake: current Patient Tobacco Use Status: Current everyday Tobacco user Tobacco use type: Cigarette Cigarettes Per Day: 10 Smoked in Last 30 Days: Yes Patient Interested in Nicotine Replacement: No Have you been hit, kicked, punched, or otherwise hurt by someone within the past year? If so, by whom?: No Are you DNR?: No Advance Directives: No Advance Directives Information Provided: Yes Recently lost weight without trying: No Nutrition Risks: No Nutritional Risk Meds Allergies Allergy/AdvReac Type Severity Reaction Status Date / Time oxycodone [From Percocet] AdvReac Intermediate fast Verified 09/03/24 09:31 heartbeat Home Medications ?Medication ?Instructions ?Recorded ?Confirmed ?Last Taken ?Type albuterol sulfate 90 mcg/actuation 2 inh inhalation Q4-6H PRN Wheezing 08/14/21 09/03/24 09/02/24 History breath activated powder inhaler fluticasone propionate 110 1 puff inhalation Q12H 08/14/21 09/03/24 Unknown History mcg/actuation HFA aerosol inhaler (Flovent HFA) gabapentin 100 mg capsule 100 mg PO TID 08/14/21 09/03/24 09/02/24 History montelukast 10 mg tablet 10 mg PO QPM 08/14/21 09/03/24 09/02/24 History (Singulair) losartan 50 mg tablet 100 mg PO DAILY 07/21/24 09/03/24 09/02/24 History rosuvastatin 5 mg tablet 5 mg PO DAILY 07/21/24 09/03/24 09/02/24 History Exam Height,Weight and Vital Signs: Height 5 ft 6 in Weight 69.797 kg Vital Signs Temp Pulse Resp BP Pulse Ox O2 Del Method 09/03/24 09:31 97.9 F 82 18 150/86 H 98 Room Air Airway Mallampati Class: II TM Dist: >3cm Neck ROM: Full Loose/Missing/Broken Teeth: Yes (3 missing teeth. Denies broken or loose teeth) Heart: RRR Lungs: CTAB Assessment and Plan Assessment Anesthesia Assessment: Anesthesia Plan Discussed and Chart Reviewed Final Anesthetic Review Family History of Problems with Anesthesia: No History of Problems with Anesthesia: No NPO: Yes ASA Class: II Final Preanesthetic Review: No Changes in Pt Med Stat, Meds/Allgs Chart Reviewed, Consent Obtained/Reviewed and Anes Risks/Benef Reviewed Patient Risk: Intermediate Procedure Risk: Low Assessment/Block/Sedation in SS: Assess/Block/Sedation-SS Anesthetic Plan Anesthetic Plan: TIVA Disposition: Standard PACU
[2024-09-03] MEDS: Lactated Ringers 1,000 ML 100 ML IVCONT (09:23)
[2024-09-03 09:31] VITALS: BP 150/86; PULSE 82; RESP 18; TEMP 36.6; O2SAT 98
--- NOTE | 2024-09-03 09:34 | MHC.SHP ---
Pre-Procedural Eval Section A - 24 Hr Update-Section A only Date of Service: 09/03/24 Section B - Complete if H&P > 30 days Chief Complaint: Benign neoplasm, unspecified site Details of Present Illness: chronic GERD Relevant Family History (Specify if Yes): No Relevant Social History: Tobacco Use Present Medications: see Short Stay Collaborative assessment Medical History: Significant History (Bleeding hemorrhoids Tubular adenoma HTN (hypertension) Asthma IBS (irritable bowel syndrome) GERD (gastroesophageal reflux disease)) History of Previous Operations: Relevant previous surgery/procedure and date(s) (History of esophagogastroduodenoscopy (EGD) Hx of endoscopy) Allergies: Allergies Allergy/AdvReac Type Severity Reaction Status Date / Time oxycodone [From Percocet] AdvReac Intermediate fast Verified 09/03/24 09:31 heartbeat Review of Systems Sugical H&P ROS: Negative: Constitution, Cardiovascular, Respiratory, Neurological, Psychiatric, Hem-Onc, Allergic/Immunologic, Gastrointestinal, Genitourinary, Musculoskeletal, Integumentary, Endocrine and Eyes/Ears/Nose/Throat Exam Surgical H&P Exam: Normal: HEENT, Normal: Heart, Normal: Lungs, Normal: Extremities, Normal: Abdomen, Normal: Skin and Normal: Neurological Plan Diagnosis/Plan: Unchanged I have reviewed the history and physical and performed a pertinent physical examination on my patient. No changes have occurred unless specified. Time Spent With Patient Time: Total time managing care of this patient today ____ minutes.
[2024-09-03 09:39] VITALS: BMI 23.9
--- NOTE | 2024-09-03 10:21 | P.OPN-COLO_ITS ---
Colonoscopy Operative Note Operative Note Date of Service: 09/03/24 Narrative: Operative Information Procedure Description: EGD, Colonoscopy Indication: GERD, and screening Anesthesia: MAC FLEXIBLE TRANSORAL UPPER GASTROINTESTINAL ENDOSCOPY AND COLONOSCOPY PROCEDURE NOTE UPPER ENDOSCOPY Consent: Indications for the procedure and potential complications of bleeding, perforation, reaction to medications and missed diagnosis were discussed with the patient and informed consent was obtained. Instrument: Olympus GIF H 190 J mid size upper endoscope Monitoring: Vital signs and clinical assessment, continuous EKG monitoring, Pulse oximetry, Carbon Dioxide monitoring and blood pressure monitoring were done throughout the procedure. Procedure: The patient was placed in the left lateral decubitis position and pre-procedure medications were administered and a bite block was placed. The endoscope was inserted into the mouth and advanced under direct vision to the third part of duodenum. A careful inspection was made as the upper endoscope was withdrawn including a retroflexed examination of the proximal stomach; Findings and interventions are described below. Findings: Larynx:normal Esophagus: GE junction at 40 cm, diaphragm hiatus at 40 cm, normal mucosa Stomach: Scattered areas of erythema and induration with granularity. Biopsies were obtained. Grade 2 flap valve on retroflexed examination of the cardia. Duodenum: mild duodenitis Intervention: Biopsies as noted above COLONOSCOPY Instrument: Olympus variable stiffness pediatric scope 190L Colonoscopy Monitoring: Vital signs and clinical assessment, continuous EKG monitoring, Pulse oximetry, Carbon Dioxide monitoring and blood pressure monitoring were done throughout the procedure. Colon withdrawal time was 11 minutes. Procedure: The patient was placed in the left lateral decubitis position and pre-procedure medications were administered. After a digital rectal examination of the ano-rectum, the video colonoscope was inserted into the rectum and advanced through the colon to the cecum/TI. The colonoscope was slowly withdrawn in a retrograde panoramic fashion and the colon mucosa was carefully examined including a retroflexed view of the rectum. Findings and interventions are described below. Procedure Difficulty:moderate Findings: Terminal Ileum-normal Cecum:normal Ascending Colon: normal Transverse Colon -normal Descending Colon:normal Sigmoid Colon: normal Rectum: Retroflexion with large internal hemorrhoids, grade I Anorectum - normal Colon preparation: [place] Bowel Preparation Scale Right colon; 2 Transverse colon: 2 Left colon; 1-2 (0 = Unprepared colon segment with mucosa not seen due to solid stool that cannot be cleared. 1 = Portion of mucosa of the colon segment seen, but other areas of the colon segment not well seen due to staining, residual stool and/or opaque liquid. 2 = Minor amount of residual staining, small fragments of stool and/or opaque liquid, but mucosa of colon segment seen well. 3 = Entire mucosa of colon segment seen well with no residual staining, small fragments of stool or opaque liquid) Impression and Post Procedure Diagnosis: Endoscopy Findings: gastritis Colonoscopy Findings: internal hemorrhoids Plan: Await Pathology results Repeat Colonoscopy in 5 years due to few areas of fair prep on the left or earlier if clinically indicated High fiber diet leaflet avoid straining at stool, epsom salts and sitz bath, anusol supps or cream if H pylori pos then treat Above findings were reviewed with the patient and relevant handouts were provided if indicated.
[2024-09-03 11:08] VITALS: BP 111/69; PULSE 83; RESP 16; TEMP 36.2; O2SAT 95
[2024-09-03 11:26] VITALS: BP 116/84; PULSE 79; RESP 16; TEMP 36.2; O2SAT 98
== END 2024-09-03 11:44 | disposition home or self-care (01) ==
PROVIDERS: PCP Internal Medicine; Visit Provider Internal Medicine Gastroenterology
PROC: (CPT 45378; principal; 2024-09-03 10:30)
DX: Z12.11 Encounter for screening for malignant neoplasm of colon (principal); Z86.0101 Personal history of adenomatous and serrated colon polyps; K64.8 Other hemorrhoids; K59.01 Slow transit constipation; K58.9 Irritable bowel syndrome, unspecified; K21.9 Gastro-esophageal reflux disease without esophagitis; K29.50 Unspecified chronic gastritis without bleeding; K29.80 Duodenitis without bleeding; K44.9 Diaphragmatic hernia without obstruction or gangrene; I10 Essential (primary) hypertension; J45.909 Unspecified asthma, uncomplicated; Z79.899 Other long term (current) drug therapy; Z88.5 Allergy status to narcotic agent; F17.210 Nicotine dependence, cigarettes, uncomplicated
CPT/HCPCS: 45378; 43239; 88305; 88342; J2003; J2704

== ENCOUNTER → 2024-09-03 08:45 | Outpatient (BNV) | payer OTHER, SELFPAY | PROVIDERS: PCP Internal Medicine; Visit Provider Internal Medicine Gastroenterology | DX: Z12.11 Encounter for screening for malignant neoplasm of colon (principal); K64.0 First degree hemorrhoids; K21.9 Gastro-esophageal reflux disease without esophagitis; K29.80 Duodenitis without bleeding; K29.70 Gastritis, unspecified, without bleeding | CPT/HCPCS: 43239; 45378 ==

== ENCOUNTER 2024-09-13 12:58 | Outpatient (AMB) | payer OTHER, SELFPAY ==
--- NOTE | 2024-09-13 13:06 | MHC.OFFVIS ---
Vital Signs 09/13/24 13:08 Height 5 ft 6 in Weight 145 lb BMI 23.4 Intake Visit Reasons: OV- RT shoulder MRI review Intake Note: Braxton is a 59 year old male who presents with complaints of progressively worsening right shoulder pain and stiffness. The patient states that his symptoms have gotten worse over the last 2 years in spite of continued non operative treatments. He has failed the last 3 months of conservative treatment. Has done physical therapy exercises which aggravated his pain. He has also tried Tylenol, anti-inflammatory medicines and gabapentin which gave him minimal relief. The patient states that he has not been able to lift his right hand above shoulder height for the last year. Allergies oxycodone [From Percocet] Adverse Reaction (Intermediate, Verified 09/13/24 13:09) fast heartbeat Medication List - Last Reconciled 09/14/24 by Volodymyr Conrad MD albuterol sulfate 90 mcg/actuation 2 inhalations inhalation Q4-6H PRN fluticasone propionate 110 mcg/actuation (Flovent HFA) 1 puff inhalation Q12H gabapentin 100 mg PO TID losartan 100 mg PO DAILY methylcellulose (laxative) (Citrucel) 500 mg PO DAILY 30 days montelukast (Singulair) 10 mg PO QPM omeprazole 40 mg PO DAILY rosuvastatin 5 mg PO DAILY PFSH Medical History Bleeding hemorrhoids Tubular adenoma HTN (hypertension) Asthma IBS (irritable bowel syndrome) GERD (gastroesophageal reflux disease) Surgical History Hx of colonoscopy History of esophagogastroduodenoscopy (EGD) Family History Father Asthma High blood pressure Mother Asthma High blood pressure Social History Household Members Other:: and niece Are you a primary child care specialist to a significant other at home: No Do you presently have visiting nurse or other home services: No Alcohol intake: current Patient Tobacco Use Status: Current everyday Tobacco user Tobacco use type: Cigarette Cigarettes Per Day: 10 Physical Exam Vital Signs: BMI result Body Mass Index 23.4 Const Other: Well-nourished well-developed very friendly male awake alert and oriented x3 in no acute distress Extrem Other: Bilateral upper extremity examination shows good capillary refill, no skin lesions noted, normal sensation light touch Right shoulder examination shows decreased range of motion when compared to his left shoulder, 4+ out of 5 strength with supraspinatus testing, positive impingement signs, tenderness over his acromioclavicular joint, no instability Results Reviewed Results Reviewed: MRI of the patient's right shoulder show severe acromioclavicular joint narrowing, signal change within the supraspinatus tendon most likely due to adhesive capsulitis, a type 2 acromion, no acute bony abnormalities Assessment & Plan Assessment & Plan (1) Impingement of right shoulder: Code(s): M25.811 - Other specified joint disorders, right shoulder Category: Medical Plan Mr. Moeller presents with progressively worsening right shoulder pain and stiffness due to impingement syndrome, acromioclavicular joint arthritis and adhesive capsulitis. I had a lengthy discussion with the patient regarding the treatment options. At this point he has failed continued non operative treatments. The risks and benefits of right shoulder surgery were discussed at length with the patient. The patient wishes to proceed with surgery. Surgery will most likely involve right shoulder diagnostic arthroscopy with distal clavicle excision, acromioplasty, capsular release and manipulation under anesthesia. The patient will be scheduled for next available date. He will follow-up as instructed. Feel free to call me at any time should questions regarding his orthopedic management arise. I spent 21 minutes in reviewing the patient's records and imaging studies, seeing the patient and documenting in the medical record. Coding Level of Care Code Est Pt Level 3 (81065) Complex EM visit Add On G2211 Diagnoses Impingement of right shoulder M25.811
[2024-09-13 13:08] VITALS: BMI 23.4
== END 2024-09-13 13:18 | disposition home or self-care (01) ==
PROVIDERS: PCP Nurse Practitioner Primary Care; Visit Provider Orthopaedic Surgery
DX: M25.811 Other specified joint disorders, right shoulder (principal)
CPT/HCPCS: 99213; G2211

== ENCOUNTER → 2024-09-13 12:58 | Outpatient (BNVA) | payer OTHER, SELFPAY | PROVIDERS: PCP Nurse Practitioner Primary Care; Visit Provider Orthopaedic Surgery | DX: M25.811 Other specified joint disorders, right shoulder (principal); M25.611 Stiffness of right shoulder, not elsewhere classified | CPT/HCPCS: 99212 ==

== ENCOUNTER 2024-09-20 18:07 | Outpatient (REF) | payer OTHER, SELFPAY ==
[2024-09-20 18:40] LABS: Creatinine Urine 137.86 mg/dL; Microalbum/Creatinine Ratio Ur 18.1 ug/mg cr (<30)
== END 2024-09-20 18:08 | disposition home or self-care (01) ==
LOC: HO.HHCLNP 18:07
PROVIDERS: Visit Provider Nurse Practitioner Primary Care
DX: I10 Essential (primary) hypertension (principal)
CPT/HCPCS: 82043; 82570

== ENCOUNTER 2024-10-01 13:06 | Outpatient (REF) | payer OTHER, SELFPAY ==
[2024-10-01 13:21] LABS: MANUAL DIFF FLAG NO
[2024-10-01 13:34] LABS: INTERNATIONAL NORM RATIO 1.1 (0.9-1.1); Prothrombin Time 13.2 SEC (10.9-12.4)
[2024-10-01 13:36] LABS: Basophils Absolute Auto 0.1 X10*3/uL (0.0-0.2); Basophils Percent Auto 0.7 % (0-2); Eosinophils Absolute Auto 0.3 X10*3/uL (0.0-0.4); Eosinophils Percent Auto 2.3 % (0-4); Hematocrit 46.3 % (42.0-52.0); Imm Gran Abs Auto 0.05 X10*3/uL (0.00-0.03); Imm Gran Pct Auto 0.4 % (0.0-0.4); Lymphocytes Absolute Auto 3.7 X10*3/uL (1.2-4.9); Lymphocytes Percent Auto 31.4 % (20-40); Mean Corpuscular HGB Conc 34.6 g/dl (31.0-36.0); Mean Corpuscular Hemoglobin 31.7 pg (27.0-33.0); Mean Corpuscular Volume 91.7 fL (80.0-98.0); Mean Platelet Volume 11.3 fL (9.4-12.4); Monocytes Absolute Auto 0.9 X10*3/uL (0.1-1.2); Monocytes Percent Auto 7.3 % (2-11); Neutrophils Absolute Auto 6.7 x10*3/uL (2.0-8.3); Neutrophils Percent Auto 57.9 % (45-73); Platelet Count 227 X10*3/uL (160-400); Red Blood Count 5.05 X10*6/uL (4.60-5.80); Red Cell Distribution Width 13.5 % (11.0-16.0); White Blood Count 11.6 X10*3/uL (4.8-10.8)
[2024-10-01 14:26] LABS: Alanine Aminotransferase 50 U/L (0-40); Albumin Level 4.6 g/dL (3.5-5.0); Alkaline Phosphatase 110 U/L (39-117); Anion Gap 13 (12-20); Aspartate Amino Transferase 72 U/L (5-37); Bilirubin Direct 0.2 mg/dL (0.0-0.5); Bilirubin Total 0.5 mg/dL (0.0-1.0); Blood Urea Nitrogen 11 mg/dL (9-16); Carbon Dioxide 27 mmol/L (22-29); Chloride 103 mmol/L (96-108); Estimated Glomerular Filt Rate > 60; Glucose Random 93 mg/dL (60-115); Potassium 4.4 mmol/L (3.3-5.1); Sodium 139 mmol/L (135-145); Total Protein 8.4 g/dL (6.5-8.0)
== END 2024-10-01 13:07 | disposition home or self-care (01) ==
LOC: HO.LAB 13:06
PROVIDERS: PCP Nurse Practitioner Primary Care
DX: Z01.818 Encounter for other preprocedural examination (principal)
CPT/HCPCS: 36415; 80048; 80076; 85025; 85610; 85730

== ENCOUNTER 2024-10-26 14:11 | Outpatient (AMB) | payer OTHER, SELFPAY ==
[2024-10-26 14:23] VITALS: PULSE 76; O2SAT 97; BMI 24.4
--- NOTE | 2024-10-26 14:23 | MHC.OFFVIS ---
Vital Signs 10/26/24 14:23 Height 5 ft 6 in Weight 151 lb 3.794 oz BMI 24.4 Blood Pressure Location Rt brachial Position Sitting Pulse 76 Pulse Source Pulse Oximeter Pulse Oximetry (%) 97 Oxygen Delivery Method Room Air Intake Visit Reasons: s/p egd/colon Intake Note: ESTABLISHED PATIENT Reason; s/p FUV duo Changes/concerns? NO significant concerns per pt. Stock Feeder Required: Yes Stock Feeder Services: Stock Feeder Offered & Declined Accompanied by: Family/Other Allergies oxycodone [From Percocet] Adverse Reaction (Intermediate, Verified 10/26/24 14:31) fast heartbeat HPI HPI s/p egd/colon: Details: LAST VISIT: Tubular adenoma GERD (gastroesophageal reflux disease) Constipation Screen for colon cancer Plan Will change PPI to omeprazole. Patient will be sent for upper endoscopy to rule out gastritis, duodenitis, esophagitis, gastric or peptic ulcer, Garcia's, H pylori. Patient was encouraged to avoid dietary triggers and late night snacking. Staying upright for minimum 3 hours after meals discussed with patient. Patient will start taking Dulcolax. Had suboptimal prep last colonoscopy. Patient can take Dulcolax every day. Encouraged to take it Dulcolax daily week before procedure with 4 tablets day before procedure followed by split MiraLax prep. What to expect before during and after procedure discussed with patient. Stressed the importance of good bowel prep and clear liquid diet day before procedure. Patient and his are both agreeable to this plan and verbalizes understanding of instructions. They were given the opportunity to ask questions and all questions answered. ? Thank you for allowing me to participate in his care Medications New bisacodyl (Dulcolax (bisacodyl)) 10 mg (2 x 5 mg) PO BEDTIME 180 tabs 4RF omeprazole 40 mg PO DAILY 90 caps 3RF K21.9 polyethylene glycol 3350 (Miralax) As directed by gastroenterology department at [facility] 238 grams PO ONCE 238 grams 0RF Z12.11 Discontinued pantoprazole take one tablet half an hour before breakfast Discontinued Reason: Doctor's Order 40 mg PO DAILY 90 tabs 2RF K21.9 UPPER ENDOSCOPY AND COLONOSCOPY: Findings: Larynx:normal Esophagus: GE junction at 40 cm, diaphragm hiatus at 40 cm, normal mucosa Stomach: Scattered areas of erythema and induration with granularity. Biopsies were obtained. Grade 2 flap valve on retroflexed examination of the cardia. Duodenum: mild duodenitis Intervention: Biopsies as noted above COLONOSCOPY Instrument: Olympus variable stiffness pediatric scope 190L Colonoscopy Monitoring: Vital signs and clinical assessment, continuous EKG monitoring, Pulse oximetry, Carbon Dioxide monitoring and blood pressure monitoring were done throughout the procedure. Colon withdrawal time was 11 minutes. Procedure: The patient was placed in the left lateral decubitis position and pre-procedure medications were administered. After a digital rectal examination of the ano-rectum, the video colonoscope was inserted into the rectum and advanced through the colon to the cecum/TI. The colonoscope was slowly withdrawn in a retrograde panoramic fashion and the colon mucosa was carefully examined including a retroflexed view of the rectum. Findings and interventions are described below. Procedure Difficulty:moderate Findings: Terminal Ileum-normal Cecum:normal Ascending Colon: normal Transverse Colon -normal Descending Colon:normal Sigmoid Colon: normal Rectum: Retroflexion with large internal hemorrhoids, grade I Anorectum - normal Colon preparation: [place] Bowel Preparation Scale Right colon; 2 Transverse colon: 2 Left colon; 1-2 (0 = Unprepared colon segment with mucosa not seen due to solid stool that cannot be cleared. 1 = Portion of mucosa of the colon segment seen, but other areas of the colon segment not well seen due to staining, residual stool and/or opaque liquid. 2 = Minor amount of residual staining, small fragments of stool and/or opaque liquid, but mucosa of colon segment seen well. 3 = Entire mucosa of colon segment seen well with no residual staining, small fragments of stool or opaque liquid) Impression and Post Procedure Diagnosis: Endoscopy Findings: gastritis Colonoscopy Findings: internal hemorrhoids Plan: Await Pathology results Repeat Colonoscopy in 5 years due to few areas of fair prep on the left or earlier if clinically indicated High fiber diet leaflet avoid straining at stool, epsom salts and sitz bath, anusol supps or cream if H pylori pos then treat PATHOLOGY RESULTS Diagnosis A. Stomach, biopsy: - Antral-type and oxyntic mucosa with moderate chronic inactive inflammation and intestinal metaplasia; negative for dysplasia. - Rare forms consistent with H. pylori present. B. GE junction, biopsy: - Cardiofundic-type mucosa with moderate chronic, focally active, inflammation and multilayered epithelium; no fully developed intestinal metaplasia seen. - Active esophagitis (maximum eosinophil count 2 per high powered field). C. Esophagus, distal, biopsy: Squamous epithelium within normal limits; no inflammation seen. C. Esophagus, proximal, biopsy: Squamous epithelium within normal limits; no inflammation seen TODAY'S VISIT Patient is here today for follow-up and to discuss upper endoscopy and colonoscopy results. Patient denies any ill effects from the prep, anesthesia or procedure itself. Patient was diagnosed with H pylori on biopsy treated with antibiotics and finish them completely endoscopy. Patient reports that he is feeling much better. Denies any epigastric pain or discomfort. Denies any dyspepsia, dysphagia or odynophagia. Denies melena, hematochezia, unintentional weight loss or ribbon like stools.. Patient reports that omeprazole is working. Patient reports that after he finished antibiotics he feels like his appetite is back. Patient reports that he is moving his bowels well. Denies nausea, vomiting. Denies diarrhea or constipation. [facility] Medical History (Updated 10/26/24 @ 15:10 by Krystle Arteaga [facility]) History of Helicobacter pylori infection Bleeding hemorrhoids Tubular adenoma HTN (hypertension) Asthma IBS (irritable bowel syndrome) GERD (gastroesophageal reflux disease) Surgical History Hx of colonoscopy History of esophagogastroduodenoscopy (EGD) Family History Father Asthma High blood pressure Mother Asthma High blood pressure Social History Household Members Other:: and niece Are you a primary career technical supervisor to a significant other at home: No Do you presently have visiting nurse or other home services: No Alcohol intake: current Patient Tobacco Use Status: Current everyday Tobacco user Tobacco use type: Cigarette Cigarettes Per Day: 5 Years Smoked: 36 Review of Systems Const Denies weight gain and Denies weight loss ENT Reports no additional complaints, Denies dysphagia and Denies odynophagia Card Reports no additional complaints Resp Reports no additional complaints GI Denies abdominal pain, Denies belching, Denies melena, Denies bloating, Denies change in bowel habits, Denies dysphagia, Denies excessive flatus, Denies dyspepsia, Denies heartburn, Denies diarrhea, Denies loose stools, Denies nausea, Denies odynophagia and Denies vomiting Reports no additional complaints Musc Reports no additional complaints Neuro Reports no additional complaints Psych Reports no additional complaints Endo Reports no additional complaints Physical Exam Vital Signs: Last Vital Signs Pulse 76 10/26/24 14:23 Pulse Ox 97 10/26/24 14:23 Oxygen Delivery Method Room Air 10/26/24 14:23 BMI result Body Mass Index 24.4 Const General: healthy appearing, no acute distress and well developed Nutritional Appearance: well nourished Orientation/consciousness: patient oriented x3 Resp Effort & Inspection: normal respiratory effort, able to speak in complete sentences, no tracheal deviation and symmetric chest movement Auscultation: clear to auscultation bilaterally Cardio Rate: regular rate GI Inspection: Yes normal to inspection, No distended and Yes obesity Palpation (GI): Soft to palpation, not firm, nontender and No hepatosplenomegaly present Auscultation: normal bowel sounds General: Yes no CVA tenderness Back/Spine/Pelvis Back: no CVA tenderness Skin General skin exam: elasticity normal, turgor normal and dry skin Neuro General: patient oriented x3 Psych Appearance: grossly normal Mental Status: mental status grossly normal Assessment & Plan Assessment & Plan (1) Tubular adenoma: Code(s): D36.9 - Benign neoplasm, unspecified site Category: Medical (2) GERD (gastroesophageal reflux disease): Code(s): K21.9 - Gastro-esophageal reflux disease without esophagitis (3) Constipation: Code(s): K59.00 - Constipation, unspecified (4) History of Helicobacter pylori infection: Code(s): Z86.19 - Personal history of other infectious and parasitic diseases Category: Medical Plan Patient will continue taking omeprazole in the morning may take famotidine as needed at bedtime. Avoid dietary triggers and late night snacking. Staying upright for minimum 3 hours after meals discussed with patient. Patient will return in 10 weeks and we will do H pylori retesting to make sure that bacteria was eradicated. He currently has no symptoms in his feeling good while on omeprazole. Colonoscopy in 5 years, history of tubular adenoma in the past and suboptimal prep to left side of his colon. Patient is agreeable to current plan of care and verbalizes understanding of instructions. He was given the opportunity to ask questions and all questions answered. Thank you for allowing me to participate in his care Medications: New famotidine (Pepcid) 20 mg PO BEDTIME 90 tabs 3RF K21.9 - Gastro-esophageal reflux disease without esophagitis Refilled omeprazole 40 mg PO DAILY 90 caps 3RF K21.9 - Gastro-esophageal reflux disease without esophagitis Coding Level of Care Code Est Pt Level 4 (13981) Complex EM visit Add On G2211 Diagnoses Tubular adenoma D36.9 GERD (gastroesophageal reflux disease) K21.9 Constipation K59.00 History of Helicobacter pylori infection Z86.19 Time Spent (min) 35 Comment 20 minutes spent with patient and additional 15 minutes spent reviewing his records
== END 2024-10-26 15:03 | disposition home or self-care (01) ==
PROVIDERS: PCP Nurse Practitioner Primary Care; Visit Provider Nurse Practitioner Family
DX: D36.9 Benign neoplasm, unspecified site (principal); K21.9 Gastro-esophageal reflux disease without esophagitis; K59.00 Constipation, unspecified; Z86.19 Personal history of other infectious and parasitic diseases
CPT/HCPCS: 99214; G2211

== ENCOUNTER → 2024-10-26 14:11 | Outpatient (BNVA) | payer OTHER, SELFPAY | PROVIDERS: PCP Nurse Practitioner Primary Care; Visit Provider Nurse Practitioner Family | DX: D36.9 Benign neoplasm, unspecified site (principal); K21.9 Gastro-esophageal reflux disease without esophagitis; K59.00 Constipation, unspecified; Z86.19 Personal history of other infectious and parasitic diseases | CPT/HCPCS: 99212 ==

== ENCOUNTER 2024-10-29 07:51 | Day surgery (SDC) | payer OTHER, SELFPAY ==
[2024-09-28 12:41] VITALS: BMI 23.4
[2024-10-29] VITALS (8 sets, daily range): BP systolic 145–167; BP diastolic 91–102; PULSE 72–97; RESP 12–16; TEMP 36.1–37.2; O2SAT 93–97; BMI 23.9
--- NOTE | 2024-10-29 09:00 | P.CONAN_ITS ---
Documented by User: Keke Leal NP 10/27/24 13:30 HPI - Anesthesia Eval Consult details Narrative: 59yo M for Right Shoulder Arthroscopy distal clavicle excision, acromioplasty, capsular release,manipulation PMFSH Active Problems Active Problems: All Active Problems History of Helicobacter pylori infection (Acute) Impingement of right shoulder (Acute) Right shoulder pain (Acute) Hemorrhoid (Acute) Bleeding hemorrhoids (Acute) Tubular adenoma (Acute) Past Medical History Medical History (Updated 10/26/24 @ 15:10 by Krystle Arteaga [facility]) History of Helicobacter pylori infection Bleeding hemorrhoids Tubular adenoma HTN (hypertension) Asthma IBS (irritable bowel syndrome) GERD (gastroesophageal reflux disease) Family History Family History Father Asthma High blood pressure Mother Asthma High blood pressure Family history of problems with anesthesia: No Surgical History Surgical History Hx of colonoscopy History of esophagogastroduodenoscopy (EGD) History of Problems with Anesthesia: No Social History Social History Household Members Other:: and niece Are you a primary healthcare science specialist to a significant other at home: No Do you presently have visiting nurse or other home services: No Alcohol intake: current Patient Tobacco Use Status: Current everyday Tobacco user Tobacco use type: Cigarette Cigarettes Per Day: 10 Years Smoked: 36 Use of substances other than those prescribed or required for medical reasons: No Have you been hit, kicked, punched, or otherwise hurt by someone within the past year? If so, by whom?: No Spiritual Healthcare Practices: none Muslim Healthcare Practices: Sabianist Cultural Healthcare Practices: none Are you DNR?: No Advance Directives: No (family member is primary contact) Advance Directives Information Provided: Yes (as above noted) Advance Directives on File: No Recently lost weight without trying: No Eating poorly because of decreased appetite: No Nutrition Risks: No Nutritional Risk Poor oral hygiene: No (3 extracted teeth) Meds Allergies Allergy/AdvReac Type Severity Reaction Status Date / Time oxycodone [From Percocet] AdvReac Intermediate fast Verified 10/29/24 09:02 heartbeat Active Medications: Current Medications Cefazolin Sodium/Dextrose (Ancef) 2 gm in 50 mls @ 100 mls/hr IV PREOP ONE Stop: 10/29/24 05:53 Home Medications ?Medication ?Instructions ?Recorded ?Confirmed ?Last Taken ?Type albuterol sulfate 90 mcg/actuation 2 inh inhalation Q4-6H PRN Wheezing 08/14/21 09/28/24 09/02/24 History breath activated powder inhaler fluticasone propionate 110 1 puff inhalation Q12H 08/14/21 10/29/24 Unknown History mcg/actuation HFA aerosol inhaler (Flovent HFA) gabapentin 100 mg capsule 100 mg PO TID 08/14/21 10/29/24 09/02/24 History montelukast 10 mg tablet 10 mg PO QPM 08/14/21 10/29/24 09/02/24 History (Singulair) atorvastatin 20 mg tablet 20 mg PO DAILY 10/26/24 10/29/24 Unknown History losartan 100 mg tablet 100 mg PO DAILY 10/26/24 10/29/24 10/28/24 History Exam Height,Weight and Vital Signs: Height 5 ft 6 in Weight 65.771 kg Pertinent Lab Results Pertinent Lab Results: Laboratory Tests 10/01/24 13:19 WBC 11.6 H Hgb 16.0 Hct 46.3 Plt Count 227 Sodium 139 Potassium 4.4 Chloride 103 Carbon Dioxide 27 BUN 11 Creatinine 0.84 Assessment and Plan Assessment Anesthesia Assessment: Chart Reviewed Final Anesthetic Review Family History of Problems with Anesthesia: No History of Problems with Anesthesia: No Documented by User: Rosita Miller DO 10/29/24 10:45 [facility] Past Medical History Medical History (Updated 10/26/24 @ 15:10 by Krystle Arteaga [employer]-) History of Helicobacter pylori infection Bleeding hemorrhoids Tubular adenoma HTN (hypertension) Asthma IBS (irritable bowel syndrome) GERD (gastroesophageal reflux disease) Family History Family History Father Asthma High blood pressure Mother Asthma High blood pressure Family history of problems with anesthesia: No Surgical History Surgical History Hx of colonoscopy History of esophagogastroduodenoscopy (EGD) History of Problems with Anesthesia: No Social History Social History Household Members Other:: and niece Are you a primary healthcare science specialist to a significant other at home: No Do you presently have visiting nurse or other home services: No Alcohol intake: current Patient Tobacco Use Status: Current everyday Tobacco user Tobacco use type: Cigarette Cigarettes Per Day: 10 Years Smoked: 36 Use of substances other than those prescribed or required for medical reasons: No Have you been hit, kicked, punched, or otherwise hurt by someone within the past year? If so, by whom?: No Spiritual Healthcare Practices: none Muslim Healthcare Practices: Sabianist Cultural Healthcare Practices: none Are you DNR?: No Advance Directives: No (family member is primary contact) Advance Directives Information Provided: Yes (as above noted) Advance Directives on File: No Recently lost weight without trying: No Eating poorly because of decreased appetite: No Nutrition Risks: No Nutritional Risk Poor oral hygiene: No (3 extracted teeth) Meds Allergies Allergy/AdvReac Type Severity Reaction Status Date / Time oxycodone [From Percocet] AdvReac Intermediate fast Verified 10/29/24 09:02 heartbeat Home Medications ?Medication ?Instructions ?Recorded ?Confirmed ?Last Taken ?Type albuterol sulfate 90 mcg/actuation 2 inh inhalation Q4-6H PRN Wheezing 08/14/21 09/28/24 09/02/24 History breath activated powder inhaler fluticasone propionate 110 1 puff inhalation Q12H 08/14/21 10/29/24 Unknown History mcg/actuation HFA aerosol inhaler (Flovent HFA) gabapentin 100 mg capsule 100 mg PO TID 08/14/21 10/29/24 09/02/24 History montelukast 10 mg tablet 10 mg PO QPM 08/14/21 10/29/24 09/02/24 History (Singulair) atorvastatin 20 mg tablet 20 mg PO DAILY 10/26/24 10/29/24 Unknown History losartan 100 mg tablet 100 mg PO DAILY 10/26/24 10/29/24 10/28/24 History Exam Exam Date and Time: 10/29/24 0900 Height,Weight and Vital Signs: Height 5 ft 6 in Weight 65.771 kg Vital Signs Temperature 99.0 F 10/29/24 09:13 Pulse Rate 83 10/29/24 09:13 Respiratory Rate 16 10/29/24 09:13 Blood Pressure 161/91 H 10/29/24 09:13 Pulse Oximetry 97 10/29/24 09:13 Oxygen Delivery Method Room Air 10/29/24 09:13 Temperature 99.0 F 10/29/24 09:13 Pulse Rate 72 10/29/24 09:40 Respiratory Rate 16 10/29/24 09:40 Blood Pressure 161/91 H 10/29/24 09:13 Pulse Oximetry 97 10/29/24 09:13 Oxygen Delivery Method Room Air 10/29/24 09:13 Airway Mallampati Class: II TM Dist: >3cm Neck ROM: Full Loose/Missing/Broken Teeth: Yes (broken #25) Heart: S1S2 Lungs: Diminished bilaterally Assessment and Plan Assessment Anesthesia Assessment: Anesthesia Plan Discussed and Chart Reviewed Final Anesthetic Review Family History of Problems with Anesthesia: No History of Problems with Anesthesia: No NPO: Yes ASA Class: II Final Preanesthetic Review: No Changes in Pt Med Stat, Meds/Allgs Chart Review ed, Consent Obtained/Reviewed and Anes Risks/Benef Reviewed Patient Risk: Low Procedure Risk: Intermediate Anesthetic Plan Anesthetic Plan: GA, Regional Block (right brachial plexus block) and Agree w/ Assess. and Plan Disposition: Standard PACU
[2024-10-29] MEDS: Lactated Ringers 1,000 ML 100 ML IVCONT (09:22)
[2024-10-29] MEDS: Albuterol Sulfate (0.083%) 2.5 MG/3 ML VIAL.NEB INHALE (09:40)
--- NOTE | 2024-10-29 11:52 | PM.OP ---
Brief Operative Note Date of Service: 10/29/24 Pre-op diagnosis: Right shoulder impingement syndrome, right shoulder acromioclavicular joint arthritis, right shoulder adhesive capsulitis Post-op diagnosis: same Procedure: Right shoulder diagnostic arthroscopy with right shoulder arthroscopic distal clavicle excision, right shoulder arthroscopic acromioplasty, right shoulder arthroscopic capsular release, right shoulder manipulation under anesthesia Implants: none Surgeon: Volodymyr Conrad MD Anesthesia: GETA Was an Outdoor Studies Director used for this Procedure?: No Estimated blood loss (mL): 15 Pathology: none sent Condition: stable Disposition: PACU
--- NOTE | 2024-10-29 11:53 | P.OP_ITS ---
Operative Note Operative Note Date of Service: 10/29/24 Narrative: After the patient was identified as Braxton Moeller and his right shoulder was initialed by myself the patient was brought to the holding area where a right shoulder interscalene regional block was performed by the anesthesiologist in routine fashion. The patient was then brought to the operating room where general anesthesia was induced by the anesthesiologist in routine fashion. The patient was given 2 g of IV Ancef preoperatively for infection prophylaxis. Examination under anesthesia of the patient's right shoulder showed decreased passive range of motion when compared to the left shoulder. The patient's right shoulder had passive forward flexion to 140 degrees compared to 170 degrees, external rotation to 40 degrees compared to 60 degrees, and internal rotation to 50 degrees compared to 60 degrees. The patient was gently positioned in the beach chair position with all bony prominences well padded. The patient's right shoulder region and upper extremity were prepped and draped in sterile fashion. A formal time-out was completed. A #11 scalpel blade was used to make a posterior portal 2 cm inferior and 1 cm medial to the posterolateral corner of the acromion. Blunt trocar technique was used to enter the glenohumeral joint in routine fashion. An anterior portal was made just lateral to the coracoid process after proper positioning was confirmed using a spinal needle. Diagnostic arthroscopy showed minimal degenerative changes of the glenoid and humeral head articular surfaces. There was no evidence of rotator cuff tearing. There was no evidence of injury to the biceps tendon or its insertion onto the glenoid. There was inflammation of the anterior joint capsule consistent with adhesive capsulitis. The ArthroCare Wand was then used to perform an anterior capsular release between the inferior border of the biceps tendon and the superior border of the subscapularis tendon. The arthroscope was then placed from the posterior portal into the subacromial space. A lateral portal was made 2 fingerbreadths lateral to the anterior lateral corner of the acromion. The ArthroCare Wand was used to ablate soft tissues along the undersurface of the acromion as well as to excise the coracoacromial ligament. There was a sharp spur along the undersurface of the acromion which was removed using the hooded bur. The arthroscope was then placed into the lateral portal and the acromiopla sty was completed with the bur in the posterior portal using the posterior aspect of the acromion as a cutting block. The ArthroCare Wand was then brought in through the anterior portal and was used to ablate soft tissues along the acromioclavicular joint and distal clavicle. The posterior and superior ligamentous structures were left intact. A distal clavicle excision of 8 mm was performed using the fluted bur. Any remaining bursal tissue was removed using the arthroscopic shaver. The subacromial space was irrigated and then drained. All arthroscopic instruments were removed. A gentle manipulation under anesthesia was then performed. Full passive range of motion was easily attained. The 3 portals were closed with 3-0 nylon interrupted suture. The subacromial space was injected with Marcaine. Dry sterile dressing was placed over all incisions. The patient's right upper extremity was placed into a sling. The patient was awoken and extubated in the operating room. The patient was transferred to the recovery room in stable condition.
[2024-10-29] MEDS: cefTRIAXone sodium 1 GM VIAL IVPUSH (12:08)
== END 2024-10-29 13:00 | disposition home or self-care (01) ==
PROVIDERS: PCP Nurse Practitioner Primary Care; Visit Provider Orthopaedic Surgery
PROC: (CPT 29805; principal; 2024-10-29 10:40)
DX: M75.41 Impingement syndrome of right shoulder (principal); M75.01 Adhesive capsulitis of right shoulder; M19.011 Primary osteoarthritis, right shoulder; I10 Essential (primary) hypertension; J45.909 Unspecified asthma, uncomplicated; Z79.51 Long term (current) use of inhaled steroids; Z79.899 Other long term (current) drug therapy; Z88.5 Allergy status to narcotic agent; F17.210 Nicotine dependence, cigarettes, uncomplicated
CPT/HCPCS: 29824; 29825; 29826; 94640; 94664; J0131; J0171; J0690; J0696; J1100; J2003; J2250; J2405; J2704; J2795; J3010

== ENCOUNTER → 2024-10-29 07:51 | Outpatient (BNV) | payer OTHER, SELFPAY | PROVIDERS: PCP Nurse Practitioner Primary Care; Visit Provider Orthopaedic Surgery | DX: M75.41 Impingement syndrome of right shoulder (principal); M19.011 Primary osteoarthritis, right shoulder; M75.01 Adhesive capsulitis of right shoulder | CPT/HCPCS: 29824; 29826 ==

== ENCOUNTER 2024-11-15 13:16 | Outpatient (AMB) | payer OTHER, SELFPAY ==
--- NOTE | 2024-11-15 13:22 | A.OFFVIS_ITS ---
Intake Visit Reasons: PO RT shoulder 10/29/24 Intake Note: Braxton is a 59 year old male who presents today with his girlfriend for a post operative RT shoulder , DOS 10/29/24 Patient reports he is doing well, past few days he has had joint pain. Current pain level is 3 out of 10. Allergies oxycodone [From Percocet] Adverse Reaction (Intermediate, Verified 11/15/24 13:24) fast heartbeat HPI HPI PO RT shoulder 10/29/24 DR: Details: 59-year-old male returns to the office today status post right shoulder arthroscopy with Dr. Conrad on 10/29/2024. Patient is doing well with no concerns today. [facility] Medical History (Updated 10/26/24 @ 15:10 by Krystle Arteaga [facility]) History of Helicobacter pylori infection Bleeding hemorrhoids Tubular adenoma HTN (hypertension) Asthma IBS (irritable bowel syndrome) GERD (gastroesophageal reflux disease) Surgical History Hx of colonoscopy History of esophagogastroduodenoscopy (EGD) Family History Father Asthma High blood pressure Mother Asthma High blood pressure Social History Household Members Other:: and niece Are you a primary healthcare liaison to a significant other at home: No Do you presently have visiting nurse or other home services: No Alcohol intake: current Patient Tobacco Use Status: Current everyday Tobacco user Tobacco use type: Cigarette Cigarettes Per Day: 10 Years Smoked: 36 Review of Systems Const All systems reviewed & are unremarkable except as noted in HPI and below Physical Exam Extrem Other: Right shoulder incision clean dry and intact. No erythema. He has close to full range of motion in all planes neurovascularly intact. Results Reviewed Results Reviewed: Brief Operative Note Date of Service: 10/29/24 Pre-op diagnosis: Right shoulder impingement syndrome, right shoulder acromioclavicular joint arthritis, right shoulder adhesive capsulitis Post-op diagnosis: same Procedure: Right shoulder diagnostic arthroscopy with right shoulder arthroscopic distal clavicle excision, right shoulder arthroscopic acromioplasty, right shoulder arthroscopic capsular release, right shoulder manipulation under anesthesia Implants: none Surgeon: Volodymyr Conrad MD Assessment & Plan Assessment & Plan (1) Impingement of right shoulder: Code(s): M25.811 - Other specified joint disorders, right shoulder Category: Medical Plan: Sutures removed today Steri-Strips applied. I did offer a course of physical therapy to work on range of motion rotator cuff and periscapular stabilization which she declined. I did educate him on using caution with repetitive motion and overhead work for the next 4-6 weeks. Will see us back in [address] Conrad, sooner if needed. Coding Level of Care Code Global (08003) Diagnoses Impingement of right shoulder M25.811
== END 2024-11-15 13:51 | disposition home or self-care (01) ==
PROVIDERS: PCP Nurse Practitioner Primary Care; Visit Provider Physician Assistant
DX: M25.811 Other specified joint disorders, right shoulder (principal)
CPT/HCPCS: 99024

== ENCOUNTER → 2024-11-15 13:16 | Outpatient (BNVA) | payer OTHER, SELFPAY | PROVIDERS: PCP Nurse Practitioner Primary Care; Visit Provider Physician Assistant | DX: M25.811 Other specified joint disorders, right shoulder (principal) | CPT/HCPCS: 99212 ==

== ENCOUNTER 2024-12-14 11:11 | Outpatient (AMB) | payer OTHER, SELFPAY ==
--- NOTE | 2024-12-14 11:32 | MHC.OFFVIS ---
Vital Signs 12/14/24 11:35 Height 5 ft 6 in Weight 148 lb BMI 23.9 Intake Visit Reasons: PO RT shoulder 10/29/24 Intake Note: Braxton is a 59 year old male who presents today postoperatively after undergoing right shoulder arthroscopic surgery on 10/29/24. The patient reports mild intermittent discomfort in his right shoulder. He denies any fevers or chills. He continues with his home stretching program. Stock Chaser Required: No Allergies oxycodone [From Percocet] Adverse Reaction (Intermediate, Verified 11/15/24 13:24) fast heartbeat Medication List - Last Reconciled 12/14/24 by Volodymyr Conrad MD albuterol sulfate 90 mcg/actuation 2 inhalations inhalation Q4-6H PRN atorvastatin 20 mg PO DAILY famotidine (Pepcid) 20 mg PO BEDTIME fluticasone propionate 110 mcg/actuation (Flovent HFA) 1 puff inhalation Q12H gabapentin 100 mg PO TID hydromorphone (Dilaudid) 4 mg (2 x 2 mg) PO Q4H PRN losartan 100 mg PO DAILY montelukast (Singulair) 10 mg PO QPM omeprazole 40 mg PO DAILY PFSH Medical History (Updated 10/26/24 @ 15:10 by Krystle Arteaga [facility]) History of Helicobacter pylori infection Bleeding hemorrhoids Tubular adenoma HTN (hypertension) Asthma IBS (irritable bowel syndrome) GERD (gastroesophageal reflux disease) Surgical History Hx of colonoscopy History of esophagogastroduodenoscopy (EGD) Family History Father Asthma High blood pressure Mother Asthma High blood pressure Social History Household Members Other:: and niece Are you a primary career information specialist to a significant other at home: No Do you presently have visiting nurse or other home services: No Alcohol intake: current Patient Tobacco Use Status: Current everyday Tobacco user Tobacco use type: Cigarette Cigarettes Per Day: 10 Years Smoked: 36 Physical Exam Vital Signs: BMI result Body Mass Index 23.9 Extrem Other: Right shoulder examination shows that the surgical incisions are well healed, no erythema, almost full range motion when compared to his left shoulder, minimal discomfort with range of motion Assessment & Plan Assessment & Plan (1) Right shoulder pain: Code(s): M25.511 - Pain in right shoulder Category: Medical Plan Mr. Moeller continues to do very well after undergoing right shoulder arthroscopic surgery on 10/29/2024. He will continue with his home stretching program. The do's and don'ts of lifting were discussed at length with the patient. He will contact me prior to his follow-up appointment in 3 months should any questions or concerns arise. Feel free to call me at any time should questions regarding his orthopedic management arise. Coding Level of Care Code Global [facility] (38030) Diagnoses Right shoulder pain M25.511
[2024-12-14 11:35] VITALS: BMI 23.9
--- OUTSIDE RECORDS SUMMARY | 2024-12-14 13:39 | XMS_ITS | Clinical Summary ---
Author Organization [employer] Address [address] [facility] 7[address] [place] [address] Care Team Providers Care Diesel Engine Tester Name Role Phone Salome Marianna CABALLERO Primary Care Provider [phone] Allergies Active Allergy Reactions Criticality Noted Date Comments Oxycodone-Acetaminophen Palpitations Low 07/30/2024 Medications pantoprazole (ProtoNix) 20 MG EC tablet Take 20 mg by mouth before breakfast. Do not crush, chew, or split. Active albuterol 108 (90 Base) MCG/ACT inhalerIndicatio ns:Mild intermittent asthma in adult without complication Inhale 2 puffs Every 4-6 hours as needed for wheezing or shortness of breath. 18 g 1 04/01/20 24 Active gabapentin (Neurontin) 100 MG capsuleIndicatio ns:Neuropathic pain, arm Take 2 capsules (200 mg) by mouth every 8 (eight) hours. 180 capsule 2 04/01/20 24 Active Diclofenac Sodium (Voltaren) 1 % gelIndications:C hronic right shoulder pain Apply up to 4x/d to affected joint(s) for pain/swelling 100 g 2 04/01/20 24 Active nicotine (Nicoderm, Step 3) 7 MG/24HR patchIndications :Cigarette nicotine dependence without complication Place 1 patch on the skin 1 (one) time each day at the same time. 28 patch 1 06/17/20 24 Active nicotine polacrilex (Nicorette) 2 MG gumIndications:C igarette nicotine dependence without complication Chew 1 each (2 mg) if needed for smoking cessation (up to every 2 hours). 100 each 11 06/17/20 24 Active cetirizine (ZyrTEC) 10 MG tabletIndication s:Chronic cough Take 1 tab afternoon 30 tablet 2 06/17/20 24 Active aspirin (Aspirin Adult Low Dose) 81 MG EC tabletIndication s:Cardiovascular event risk Take 1 tablet (81 mg) by mouth Once per day. Do not start before November 03, 2024. 90 tablet 1 11/03/19 25 025 Active atorvastatin (Lipitor) 20 MG tabletIndication s:Cardiovascular event risk Take 1 tablet (20 mg) by mouth Once per day. 90 tablet 1 09/20/20 24 025 Active nicotine (Nicoderm CQ) 14 MG/24HR patchIndications :Cigarette nicotine dependence without complication Place 1 patch on the skin 1 (one) time each day at the same time. 42 patch 09/20/20 24 Active losartan (Cozaar) 100 MG tabletIndication s:Benign essential HTN TAKE 1 TABLET BY MOUTH EVERY DAY 90 tablet 1 12/13/19 25 Active losartan (Cozaar) 100 MG tabletIndication s:Benign essential HTN Take 1 tablet (100 mg) by mouth Once per day. 90 tablet 1 06/17/20 24 025 Discontinued Active Problems Problem Noted Date Diagnosed Date Pre-op evaluation 10/01/2024 Assessment & Plan (10/01/2024 11:27 AM EST): -The incidence of perioperative cardiovascular events varies according to the patient risk profile, patient's functional capacity, and risk of the proposed surgery. Active cardiac conditions that are contraindications to elective surgery: Surgery-Specific Cardiac Risk: medium Cardiac risk by patient profile (RCRI): Patient has 0 risk factors corresponding to 0.4%risk of a major cardiac event during surgery. Functional capacity = 10 METS. The patient reports being able to walk up 1 one flight of stairs and 2 blocks without stopping. EKG Interpretation Rate: 70 Rhythm: NSR Charlemont: Normal Minor inferior repolarization disturbance, aspecific change ECG is normal without significant or acute abnormalities Medication Recs: -Hold aspirin and NSAIDs 5 days before surgery -Stop Cozaar day of surgery. May restart day after the surgery unless directed differently by surgeon Pain control: This patient is at low risk for an intermediate risk procedure. The patient is at acceptable risk for the proposed procedure pending ordered lab work. Reviewed with patient that no surgery is completely free of risk and this evaluation is to assist surgeon in accurately reviewing informed consent. Benign essential HTN 04/01/2024 Smokes cigarettes 04/01/2024 Overview (04/01/2024): 1/2 PPD Asthma in adult without complication 04/01/2024 Overview (04/01/2024): PRN albuterol, let us know if needing to use > 2x/wk or more Encounters Date Type Department Care Team Description 12/12/[address] [address] Marianna Mcmahon ANP Benign essential HTN 10/29/[address] [address] Francis Arciniega [place] March recall 10/05/[address] [address] Marianna Mcmahon ANP Fax Sent 10/01/2024 10:45 AM EST Office Visit [address] [address] Marisela Lee CNP Pre-op evaluation (Primary Dx); Impingement syndrome of right shoulder; Arthritis of right acromioclavicular joint; Adhesive capsulitis of right shoulder 09/28/2024 3:00 PM EST Office Visit [facility] [address] [place] [phone] Boateng-Chavarria , Ivy, DDS Dental caries (Primary Dx); Gingival recession, localized 09/21/[address] [address] Bill Pandey [place] Chart Prep 09/20/2024 11:15 AM EST Office Visit [address] [address] Marianna Mcmahon ANP Benign essential HTN (Primary Dx); Smokes cigarettes; Dyslipidemia; Cardiovascular event risk; Prediabetes; Cigarette nicotine dependence without complication 09/20/2024 Orders Only [address] [address] Marianna Mcmahon ANP 09/20/2024 Travel 09/14/[address] [facility] [address] [place] [address] Marianna Mcmahon ANP PRE-OP from Last 3 Months Immunizations Name Administration Dates Next Due Influenza Injectable Quadriv alant Preservative Free IIV4 MDCK 06/17/2019 Influenza injectable quadrivalent preservative f ree 08/07/2022,09/22/2020 Influenza, Injectable, MDCK, preservative free 0 06/24/2024 Moderna Covid-19 Vaccine 12+ 02/19/2021,01/23/20 21 Moderna Covid-19 Vaccine 6+ Bivalent 12/19/2022 Pneumococcal Conjugate PCV 20 09/20/2024 Tdap 06/18/2021 Zoster, Recombinant 02/19/2023,12/19/2022 Family History Medical History Relation Name Comments Diabetes Father Hypertension Father Hypertension Mother Diabetes Sister Hypertension Sister Relation Name Status Comments Father Mother Sister Social History Tobacco Use Types Packs/Day Years Used Date Smoking Tobacco: Every Day Cigarettes 0.5 38.2 Started: 1984 Smokeless Tobacco: Never Tobacco Cessation:Ready to Q uit: No; Counseling Given: Yes Alcohol Answer Date Recorded How often do you have a drink containing alcohol ? 3 09/20/2024 How many drinks containing a lcohol do you have on a typical day when you are drinking? 1 09/20/2024 Frequency of Binge Drinking Not on file 11/2023 Housing Stability Answer Date Recorded What is your housing situation today? I have alcir[place]hed del valle 03/23/[address] you li ve. Do you have problems with any of the following? None of the above 03/23/2024 Food Insecurity Answer Date Recorded Within the past 12 months, y ou worried that your food would run out before you got money to buy more: Never True 03/23/2024 Within the past 12 months,th e food you bought just didn't last and you didn't have enough money to get more: Never True 01/2024 Transportation Answer Date Recorded In the past 12 months, has l ack of transportation kept you from medical appts, meetings, work or from getting things needed for daily living? No 03/23/2024 Utilities Answer Date Recorded In the past 12 months, has t he electric, gas, oil or water company threatened to shut off services in your home? No 03/23/2024 Depression Answer Date Recorded Patient Health Questionnaire-2 Score 1 06/17/2024 Sex and Gender Information Value Date Recorded Sex Assigned at Male 08/19/2022 10:20 AM EDT Legal Sex Male 10:20 AM EDT Gender Identity Male 08/19/2022 10:20 AM EDT Sexual Orientation Choose not to disclose 2021 10:20 AM EDT Last Filed Vital Signs Vital Sign Reading Time Taken Comments Blood Pressure 140/88 10/01/2024 11:10 AM EST Pulse 68 10/01/2024 11:10 AM EST Temperature 36.4 ??C (97.6 ??F) 10/01/2024 1 1:10 AM EST Respiratory Rate 16 10/01/2024 11:1 0 AM EST Oxygen Saturation 99% 10/01/2024 11: 10 AM EST Inhaled Oxygen Concentration - - Weight 71.1 kg (156 lb 12.8 oz) 024 11:10 AM EST Height 167.6 cm (5' 6 ) 10/01/2024 11:1 0 AM EST Body Mass Index 25.31 10/01/2024 11:10 AM EST Plan of Treatment Upcoming Encounters Date Type Department Care Team (Late st Contact Info) Description 12/28/2024 10:15 AM EDT Office Visit [facility] [address] [place] [phone] Marianna Mcmahon ANP [address] [place] [address] 03/08/2025 10:00 AM EDT Office Visit [facility] [address] [place] [address] Marli Smyth Health Maintenance Due Date Last Done Comments CT Colonography 1967 Colonoscopy 1967 Colorectal Cancer Screening 1967 Dental X-Ray: Full Mouth 1967 FIT DNA/Cologuard 1967 FIT 1967 FOBT 1967 HIV Screening 1967 Sigmoidoscopy 1967 Hepatitis C Screening 1985 Hepatitis A Vaccines (1 of 2 - Risk 2-dose series) 1986 Hepatitis B Vaccines (1 of 3 - 19+ 3-dose series) 1986 Dental Oral Exam 03/08/2025 09/07/2024, 01/2018, 12/01/2015, Additional history exists Dental Prophylaxis 03/08/2025 09/07/2024, 0 06/02/2018, 06/03/2016, Additional history exists SDOH Screening 03/23/2025 03/23/2024 Diabetes: Hemoglobin A1C 04/06/2025 04/06/2024 Depression Screening 06/17/2025 06/17/2024, 06/17/20 Dental X-Ray: Bitewings 09/08/2025 09/07/20 24, 01/21/2018, 12/01/2015, Additional history exists Alcohol/Substance Use Screening 09/20/2025 09/20/2024 Tobacco Screening 09/28/2025 09/28/2024 Lipid Panel 04/06/2029 04/06/2024 DTaP/Tdap/Td Vaccines (2 - Td or Tdap) 06/18/2031 06/18/2021 RSV Patients and Patients Aged 60 years or older (1 - 1-dose 75+ series) 2042 Zoster Vaccines Completed 02/19/2023, 12/19/2022 Influenza Vaccine Completed 06/24/2024, , 09/22/2020, Additional history exists COVID-19 Vaccine Completed 08/03/2024, 11/2022, 10/17/2021, Additional history exists Pneumococcal Vaccine: 50+ Years Completed 09/20/2024 HIB Vaccines Aged Out No longer eligi ble based on patient's age to complete this topic HPV Vaccines Aged Out No longer eligi ble based on patient's age to complete this topic IPV Vaccines Aged Out No longer eligi ble based on patient's age to complete this topic Meningococcal Vaccine Aged Out No roberta arline eligible based on patient's age to complete this topic RSV under 20 months Aged Out No longe r eligible based on patient's age to complete this topic Rotavirus Vaccines Aged Out No longer eligible based on patient's age to complete this topic Procedures Procedure Name Priority Date/Time Associated Diagnosis Comments HEPATIC FUNCTION PANEL Routine 10/01/2024 1:19 PM EST Pre-op evaluation APTT Routine 10/01/2024 1:19 PM EST Pre-op evaluation PROTHROMBIN TIME-INR Routine 10/01/2024 1:19 PM EST Pre-op evaluation BASIC METABOLIC PANEL Routine 10/01/2024 1:19 PM EST Pre-op evaluation CBC WITH AUTO DIFFERENTIAL Routine 10/01/2024 1:19 PM EST Pre-op evaluation ECG 12-LEAD Routine 10/01/2024 11:26 AM EST Pre-op evaluation CASE PRESENTATION, DETAILED AND EXTENSIVE TREATMENT PLANNING Routine 09/28/2024 3:00 PM EST Dental caries Gingival recession, localized 19 B(V) RESIN-BASED COMPOSITE - 1 SURF, POSTERIOR Routine 09/28/2024 3:00 PM EST Dental caries Gingival recession, localized 7 F(V) RESIN-BASED COMPOSITE - 1 SURF, ANTERIOR Routine 09/28/2024 3:00 PM EST Dental caries Gingival recession, localized 13 B(V) RESIN-BASED COMPOSITE - 1 SURF, POSTERIOR Routine 09/28/2024 3:00 PM EST Dental caries Gingival recession, localized 15 B(V) RESIN-BASED COMPOSITE - 1 SURF, POSTERIOR Routine 09/28/2024 3:00 PM EST Dental caries Gingival recession, localized 12 B(V) RESIN-BASED COMPOSITE - 1 SURF, POSTERIOR Routine 09/28/2024 3:00 PM EST Dental caries Gingival recession, localized 30 B(V) RESIN-BASED COMPOSITE - 1 SURF, POSTERIOR Routine 09/28/2024 3:00 PM EST Dental caries Gingival recession, localized 28 B(V) RESIN-BASED COMPOSITE - 1 SURF, POSTERIOR Routine 09/28/2024 3:00 PM EST Dental caries Gingival recession, localized 29 B(V) RESIN-BASED COMPOSITE - 1 SURF, POSTERIOR Routine 09/28/2024 3:00 PM EST Dental caries Gingival recession, localized ALBUMIN, RANDOM URINE W/CREATININE Routine 09/20/2024 11:38 AM EST Full PROPHYLAXIS - ADULT Routine 09/07/2024 8:00 AM EST Dental calculus Dental plaque BITEWINGS - 4 RADIOGRAPHIC IMAGES Routine 09/07/2024 8:00 AM EST PERIODIC ORAL EVALUATION - ESTABLISHED PATIENT Routine 09/07/2024 8:00 AM EST Dental calculus Dental plaque Encounter for dental examination Dental caries Gingival recession, localized HEMOGLOBIN A1C Routine 04/06/2024 8:39 AM EDT Prediabetes LIPID PANEL, STANDARD Routine 04/06/2024 8:39 AM EDT Healthcare maintenance Prediabetes from Last 3 Months or Most Recently Relevant to Health Maintenance Results * (ABNORMAL) CBC auto differential (10/01/2024 1:19 PM EST) White Blood Count 11.6(H) 4.8 - 10.8 X10*3/uL [facility] Red Blood Count 5.05 4.60 - 5.80 X10*6/uL [facility] Hemoglobin 16.0 14.0 - 18.0 g/dl [facility] Hematocrit 46.3 42.0 - 52.0 % [facility] Mean Corpuscular Volume 91.7 80.0 - 98.0 fL [facility] Mean Corpuscular Hemoglobin 31.7 27.0 - 33.0 pg [facility] Mean Corpuscular HGB Conc 34.6 31.0 - 36.0 g/dl [facility] Red Cell Distribution Width 13.5 11.0 - 16.0 % [facility] Platelet Count 227 160 - 400 X10*3/uL [facility] Mean Platelet Volume 11.3 9.4 - 12.4 fL [facility] Neutrophils Percent Auto 57.9 45 - 73 % [facility] Imm Gran Pct Auto 0.4 0.0 - 0.4 % [facility] Lymphocytes Percent Auto 31.4 20 - 40 % [facility] Monocytes Percent Auto 7.3 2 - 11 % [facility] Eosinophils Percent Auto 2.3 0 - 4 % [facility] Basophils Percent Auto 0.7 0 - 2 % [facility] NRBC Pct Auto 0.0 0.0 - 0.2 /100WBC [facility] Neutrophils Absolute Auto 6.7 2.0 - 8.3 x10*3/uL [facility] Imm Gran Abs Auto 0.05(H) 0.00 - 0.03 X10*3/uL [facility] Lymphocytes Absolute Auto 3.7 1.2 - 4.9 X10*3/uL [facility] Monocytes Absolute Auto 0.9 0.1 - 1.2 X10*3/uL [facility] Eosinophils Absolute Auto 0.3 0.0 - 0.4 X10*3/uL [facility] Basophils Absolute Auto 0.1 0.0 - 0.2 X10*3/uL [facility] NRBC Abs Auto 0.000 0.0 - 0.012 X10*3/uL [facility] Blood Venous blood specimen / Unknown 10/01/2024 1:19 PM EST 10/01/2024 1:19 PM EST [facility] LAB BLOOD ORDERABLES Bailey l Result Performing Organization Address City/[facility]/ZIP Co de Phone Number [facility] [address] [place] [phone] * (ABNORMAL) Partial Thromboplastin Time, Activated (APTT) (10/01/2024 1:19 PM EST) Partial Thromboplastin Time 40.0(H) 26.0 - 36.8 SEC [facility] Comment:For information rega rding the monitoring of direct thrombininhibitors, please refer to Pharmacy. Blood Venous blood specimen / Unknown 10/01/2024 1:19 PM EST 10/01/2024 1:19 PM EST [facility] LAB BLOOD ORDERABLES Bailey l Result Performing Organization Address City/[facility]/ZIP Co de Phone Number [facility] [address] [place] [phone] * (ABNORMAL) Prothrombin Time-INR (10/01/2024 1:19 PM EST) Prothrombin Time 13.2(H) 10.9 - 12.4 SEC [facility] INTERNATIONAL NORM RATIO 1.1 0.9 - 1.1 [facility] Comment:INTERNATIONAL NORMAL IZED RATIO (INR) REFERENCE RANGES Reference RangeFor patients not on anticoagulant therapy: 0.9 - 1.1INR ranges for oral anticoagulanttherapy:For prevention and treatment of venous thrombosis and pulmonary embolism: 2.0 - 3.0For acute myocardial infarction with aspirin therapy: 2.0 - 3.0For acute myocardial infarction without aspirin therapy: 3.0 - 4.0For patients with mechanical prosthetic heart valves: 2.5 - 3.5 Blood Venous blood specimen / Unknown 10/01/2024 1:19 PM EST 10/01/2024 1:19 PM EST [facility] LAB BLOOD ORDERABLES Bailey l Result [facility] [address] [place] [address] [phone] * (ABNORMAL) Hepatic Function Panel (10/01/2024 1:19 PM EST) Bilirubin, Total 0.5 0.0 - 1.0 mg/dL [facility] Bilirubin, Direct 0.2 0.0 - 0.5 mg/dL [facility] Aspartate Amino Transferase 72(H) 5 - 37 U/L [facility] Alanine Aminotransferase 50(H) 0 - 40 U/L [facility] Total Protein 8.4(H) 6.5 - 8.0 g/dL [facility] Albumin Level 4.6 3.5 - 5.0 g/dL [facility] Alkaline Phosphatase 110 39 - 117 U/L [facility] Blood Venous blood specimen / Unknown 10/01/2024 1:19 PM EST 10/01/2024 1:19 PM EST [facility] LAB BLOOD ORDERABLES Bailey l Result Performing Organization Address [facility] Co de Phone Number [facility] [address] [place] [address] [phone] * Basic Metabolic Panel (10/01/2024 1:19 PM EST) Sodium 139 135 - 145 mmol/L [facility] Potassium 4.4 3.3 - 5.1 mmol/L [facility] Chloride 103 96 - 108 mmol/L [facility] Carbon Dioxide 27 22 - 29 mmol/L [facility] Anion Gap 13 12 - 20 [facility] Urea Nitrogen (BUN) 11 9 - 16 mg/dL [facility] Creatinine, Serum 0.84 0.5 - 1.4 mg/dL [facility] Estimated Glomerular Filt Rate >60 [facility] Comment:Chronic Kidney Disea se: Estimated GFR < 60 mL/min/[id number] Kidney Disease: Estimated GFR < 15 mL/min/1.73m2 Glucose 93 60 - 115 mg/dL [facility] Calcium 10.0 8.4 - 10.2 mg/dL [facility] Blood Venous blood specimen / Unknown 10/01/2024 1:19 PM EST 10/01/2024 1:19 PM EST Result [facility] LAB BLOOD ORDERABLES Abiley l Result Performing Organization Address City/[facility] Co de Phone Number [facility] [address] [place] [address] [phone] * ECG 12 lead (10/01/2024 11:26 AM EST) Narrative Marisela Lee CNP - 10/01/2024 11:26 AM EST Rate: 70 Rhythm: NSR [place]: Normal Minor inferior repolarization disturbance, aspecific change ECG is normal without significant or acute abnormalities [facility] ECG ORDERABLES Final Res ult * Albumin, Random Urine W/Creatinine (09/20/2024 11:38 AM EST) Creatinine, Urine 137.86 mg/dL [facility] Microalbumin Urine 25.0 mg/L [facility] Microalbum Creatinine Ratio Ur 18.1 <30 ug/mg cr [facility] Comment:Albumin/Creatinine R atio Reference Ranges: Normal: < 30 ug/mg creatinine Microalbuminuria: 30 - 300 ug/mg creatinineClinical Albuminuria: > 300 ug/mg creatinine 09/20/2024 11:3 8 AM EST 09/20/2024 6:09 PM EST Marianna Mcmahon ANP LAB URINE ORDERABLES Final Resul t Performing Organization Address [facility] Co de Phone Number [facility] [address] [place] [phone] * Hemoglobin A1c (04/06/2024 8:39 AM EDT) Hemoglobin A1c 5.9 <6.0 % [facility] Comment:Hemoglobin A1C Refer ence Range Adults: 4.8 - 6.0 % Non diabetic: < 6.0 % Goal: < 7.0 %Additional Action Suggested: > 8.0 %Note: Hemoglobin A1c results are invalid for patients with abnormal amounts of HbF. Blood transfusions may impact the HbA1c concentration in the patient sample. Estimated Average Glucose 123 mg/dL [facility] Comment:eAG = Estimated ave rage glucose which is %A1C expressed asaverage glucose, using the formula of the [id number] Glucose study (ADAG), Diabetes Care, Vol.31,#8,May. 2007 Blood Venous blood specimen / Unknown 04/06/2024 8:39 AM EDT 04/06/2024 8:39 AM EDT Marianna Mcmahon ANP LAB BLOOD ORDERABLES Final Resul t Performing Organization Address [facility] Co de Phone Number [facility] [address] [place] [phone] * (ABNORMAL) Lipid Panel, Standard (04/06/2024 8:39 AM EDT) Triglycerides 221(H) <150 mg/dL [facility] Comment:Desirable Triglyceri de: less than 150 mg/dLBorderline High Triglyceride 150-199 mg/dLHigh Triglyceride: 200-499 mg/dLVery High Triglyceride: greater than or equal to 5OO mg/dL Cholesterol 300(H) <200 mg/dL [facility] Comment:Desirable Cholestero l: less than 200 mg/dLBorderline High Cholesterol: 200-239 mg/dLHigh Cholesterol: greater than 239 mg/dL LDL Cholesterol Calculated 222(H) <100 mg/dL [facility] Comment:Desirable LDL: less than 100 mg/dLNear Optimal/Above Optimal LDL: 110- 129 mg/dLBorderline High LDL: 130-159 mg/dLHigh LDL: 160-189 mg/dLVery High LDL: greater than or equal to 190 mg/dL HDL Cholesterol 34(L) >40 mg/dL [facility] Comment:Desirable HDL: great er than 40 mg/dL Note: This HDL assay may give artificially low results in patients with liver disease. Blood Venous blood specimen / Unknown 04/06/2024 8:39 AM EDT 04/06/2024 8:39 AM EDT Marianna Mcmahon [facility] LAB BLOOD ORDERABLES Final Resul t [facility] [address] [place] [address] [phone] from Last 3 Months or Most Recently Relevant to Health Maintenance Insurance [id number] [address] [facility] - [facility]SN PARTIAL (MEDICAID) [address] [address] Care Teams Diesel Engine Tester Relationship Specialty Start Date End Date Mraianna Mcmahon ANP [address] [place] [phone] PCP - General Family Medicine 06/18/21
--- OUTSIDE RECORDS SUMMARY | 2024-12-14 13:39 | XMS_ITS | Encounter Summary ---
Author Organization [employer] Address [address] [facility] [address] [place] [address] Care Team Providers Care Hose Stripper Name Role Phone Marianna Mcmahon Primary Care Provider [phone] Reason for Visit * Reason Comments Med Refill Encounter Details Date Type Department Care Team ([facility] st Contact Info) Description 12/12/2024 Refill [facility] [address], [place] [phone] Marianna Mcmahon ANP [address] [place], [place] [phone] Benign essential HTN Social History Tobacco Use Types Packs/Day Years Used Date Smoking Tobacco: Every Day Cigarettes 0.5 38.2 Started: 1984 Smokeless Tobacco: Never Alcohol Answer Date Recorded How often do you have a drink containing alcohol ? 3 09/20/2024 How many drinks containing a lcohol do you have on a typical day when you are drinking? 1 09/20/2024 Frequency of Binge Drinking Not on file 11/2023 Housing Stability Answer Date Recorded What is your housing situation today? I have alcira [place] valle 03/23/[address] [...] not to disclose 2021 10:20 AM EDT documented as of this encounter Plan of Treatment Upcoming Encounters Date Type Department Care Team (Late st Contact Info) Description 12/28/2024 10:15 AM EDT Office Visit [facility] [address] [place] [address] Marianna Mcmahon ANP [address] [place] [address] 03/08/2025 10:00 AM EDT Office Visit [facility] [address] [place] [address] Marli Smyth documented as of this encounter Visit Diagnoses Diagnosis Benign essential HTN documented in this encounter Care Teams Hose Stripper Relationship Specialty Start Date End Date Marianna Mcmahon ANP [address] [place] [phone] PCP - General Family Medicine 06/18/21 documented as of this encounter
== END 2024-12-14 11:57 | disposition home or self-care (01) ==
PROVIDERS: PCP Nurse Practitioner Primary Care; Visit Provider Orthopaedic Surgery
DX: M25.511 Pain in right shoulder (principal)
CPT/HCPCS: 99024

== ENCOUNTER → 2024-12-14 11:11 | Outpatient (BNVA) | payer OTHER, SELFPAY | PROVIDERS: PCP Nurse Practitioner Primary Care; Visit Provider Orthopaedic Surgery ==

== ENCOUNTER 2025-01-07 11:28 | Outpatient (REF) | payer OTHER, SELFPAY ==
[2025-01-11 11:43] LABS: H Pylori Breath Test Negative (Negative)
== END 2025-01-07 11:29 | disposition home or self-care (01) ==
LOC: HO.LNP 11:28
PROVIDERS: Visit Provider Nurse Practitioner Family
DX: K21.9 Gastro-esophageal reflux disease without esophagitis (principal)
CPT/HCPCS: 83013

== ENCOUNTER 2025-01-07 14:14 | Outpatient (AMB) | payer OTHER, SELFPAY ==
--- NOTE | 2025-01-07 14:28 | A.OFFVIS_ITS ---
Vital Signs 01/07/25 14:50 Height 5 ft 6 in Weight 156 lb 8.451 oz BMI 25.3 BP 144/90 H Blood Pressure Location Rt brachial Position Sitting Pulse 78 Pulse Source Pulse Oximeter Pulse Oximetry (%) 98 Oxygen Delivery Method Room Air Intake Visit Reasons: h pylori Intake Note: ESTABLISHED PATIENT for mgmt of H Pylori testing + GERD. Pt has repeat breath test today. Chief Complaint; C/O worsening reflux due to stopping/holding medication for H Pylori BT. Pt confirms he is NPO per last hour as well. No additional concerns at this time. Center Hole Reamer Required: Yes Center Hole Reamer Services: Center Hole Reamer Offered & Declined Accompanied by: Spouse Allergies oxycodone [From Percocet] Adverse Reaction (Intermediate, Verified 01/07/25 14:29) fast heartbeat HPI HPI h pylori: Details: LAST VISIT: Tubular adenoma GERD (gastroesophageal reflux disease) Constipation History of Helicobacter pylori infection Plan Patient will continue taking omeprazole in the morning may take famotidine as needed at bedtime. Avoid dietary triggers and late night snacking. Staying upright for minimum 3 hours after meals discussed with patient. Patient will re turn in 10 weeks and we will do H pylori retesting to make sure that bacteria was eradicated. He currently has no symptoms in his feeling good while on omeprazole. Colonoscopy in 5 years, history of tubular adenoma in the past and suboptimal prep to left side of his colon. Patient is agreeable to current plan of care and verbalizes understanding of instructions. He was given the opportunity to ask questions and all questions answered. ? Thank you for allowing me to participate in his care Medications New famotidine (Pepcid) 20 mg PO BEDTIME 90 tabs 3RF K21.9 Refilled omeprazole 40 mg PO DAILY 90 caps 3RF K21.9 TODAY'S VISIT Patient is here today for follow-up and to repeat H pylori test. Patient has been off PPI for 2 weeks and today feels like his symptoms are getting worse. Patient was taking famotidine until 2 days ago. Patient reports that he is moving his bowels well. Denies any other GI concerning symptoms today. Denies dyspepsia, dysphagia or odynophagia [facility] Medical History Tubular adenoma of colon Nicotine dependence, cigarettes, uncomplicated History of Helicobacter pylori infection Bleeding hemorrhoids HTN (hypertension) Asthma IBS (irritable bowel syndrome) GERD (gastroesophageal reflux disease) Surgical History History of shoulder surgery History of colonoscopy History of esophagogastroduodenoscopy (EGD) Family History Father Asthma High blood pressure Mother Asthma High blood pressure Social History Household Members Other:: and niece Are you a primary healthcare financial analyst to a significant other at home: No Do you presently have visiting nurse or other home services: No Alcohol intake: current Patient Tobacco Use Status: Current everyday Tobacco user Tobacco use type: Cigarette Cigarettes Per Day: 10 Years Smoked: 36 Review of Systems Const Denies weight gain and Denies weight loss ENT Reports no additional complaints, Denies dysphagia and Denies odynophagia Card Reports no additional complaints Resp Reports no additional complaints GI Denies abdominal pain, Denies belching, Denies melena, Denies bloating, Denies change in bowel habits, Denies dysphagia, Denies excessive flatus, Denies dyspepsia, Denies heartburn, Denies diarrhea, Denies loose stools, Denies nausea, Denies odynophagia and Denies vomiting Reports no additional complaints Musc Reports no additional complaints Neuro Reports no additional complaints Psych Reports no additional complaints Endo Reports no additional complaints Physical Exam Vital Signs: Last Vital Signs Pulse 78 01/07/25 14:50 BP 144/90 H 01/07/25 14:50 Pulse Ox 98 01/07/25 14:50 Oxygen Delivery Method Room Air 01/07/25 14:50 BMI result Body Mass Index 25.3 Const General: healthy appearing, no acute distress and well developed Nutritional Appearance: well nourished Orientation/consciousness: patient oriented x3 Resp Effort & Inspection: normal respiratory effort, able to speak in complete sentences, no tracheal deviation and symmetric chest movement Auscultation: clear to auscultation bilaterally Cardio Rate: regular rate GI Inspection: Yes normal to inspection, No distended and Yes obesity Palpation (GI): Soft to palpation, not firm, nontender and No hepatosplenomegaly present Auscultation: normal bowel sounds General: Yes no CVA tenderness Back/Spine/Pelvis Back: no CVA tenderness Skin General skin exam: elasticity normal, turgor normal and dry skin Neuro General: patient oriented x3 Psych Appearance: grossly normal Mental Status: mental status grossly normal Assessment & Plan Assessment & Plan (1) Tubular adenoma: Code(s): D36.9 - Benign neoplasm, unspecified site Category: Medical (2) History of Helicobacter pylori infection: Code(s): Z86.19 - Personal history of other infectious and parasitic diseases Category: Medical (3) GERD (gastroesophageal reflux disease): Code(s): K21.9 - Gastro-esophageal reflux disease without esophagitis Qualifiers: Esophagitis presence: esophagitis presence not specified Qualified Code(s): K21.9 - Gastro-esophageal reflux disease without esophagitis (4) Constipation: Code(s): K59.00 - Constipation, unspecified Qualifiers: Constipation type: slow transit constipation Qualified Code(s): K59.01 - Slow transit constipation Plan Continue omeprazole daily, famotidine at bedtime is needed. Avoid dietary triggers and in late night snacking. Staying upright for minimum 3 hours after meals discussed with patient. If positive for H pylori and treat. Follow-up in 6 months, sooner on as needed basis. Patient is agreeable to plan of care and verbalizes understanding of instructions. He was given the opportunity to ask questions and all questions answered. Thank you for allowing me to participate in his care Coding Level of Care Code Est Pt Level 4 (08777) Complex EM visit Add On G2211 Diagnoses Tubular adenoma D36.9 History of Helicobacter pylori infection Z86.19 Gastroesophageal reflux disease, unspecified whether esophagitis present K21.9 Esophagitis presence: esophagitis presence not specified Slow transit constipation K59.01 Constipation type: slow transit constipation Time Spent (min) 35 Comment 25 minutes spent with patient and additional 10 minutes spent reviewing his records
[2025-01-07 14:50] VITALS: BP 144/90; PULSE 78; O2SAT 98; BMI 25.3
--- OUTSIDE RECORDS SUMMARY | 2025-01-07 16:34 | XMS_ITS | Encounter Summary ---
Author Organization [employer] Address [address] [facility] [address] [place] [address] Care Team Providers Care Retail Advertising Account Executive Name Role Phone Marianna Mcmahon Primary Care Provider [phone] Reason for Visit * Reason Onset Date Comments Lung Cancer Screening Referral 12/28/2024 Encounter Details Date Type Department Care Team ([facility] Contact Info) Description 12/28/2024 Telephone [facility] [address] [place], [place] [phone] Marianna Mcmahon ANP [address] [place] [address] Lung Cancer Screening Referral Social History Tobacco Use Types Packs/Day Years [...] Recorded Patient Health Questionnaire-2 Score 1 06/17/2024 Internet Access Answer Date Recorded Internet Access Q1 Yes 12/28/2024 Internet Access Q2 Not on file 12/28/2024 Sex and Gender Information Value Date Recorded Sex Assigned at Male 08/19/2022 10:20 AM EDT Legal Sex Male 10:20 AM EDT Gender Identity Male 08/19/2022 10:20 AM EDT Sexual Orientation Choose not to disclose 2021 10:20 AM EDT documented as of this encounter Miscellaneous Notes * Telephone Encounter - Savannah Zaragoza [place] - 12/28/2024 2:[address] [facility] Pulmonology ([phone]) to follow up on lung cancer screening referral and pt is scheduled to be seen on 01/28/25 @ 11 am. * Telephone Encounter - Savannah Zaragoza MA - 12/28/2024 2:48 PM EDT ----- Message from Marianna Mcmahon sent at 12/28/2024 2:40 PM EDT ----- Hello! Do you mind please calling [facility] pulmonology to see if they received lung cancer screening referral for this pt? Sent in Jun 2024. thanks documented in this encounter Plan of Treatment Upcoming Encounters Date Type Department Care Team (Late st Contact Info) Description 03/08/2025 10:00 AM EDT Office Visit [facility] ADULT DENTAL [address] [place] [address] Marli Smyth 03/31/2025 10:00 AM EDT Office Visit [facility] [address] [place] [address] Marianna Mcmahon ANP [address] [place] [address] documented as of this encounter Visit Diagnoses Not on filedocumented in this encounter Care Teams Retail Advertising Account Executive Relationship Specialty Start Date End Date Marianna Mcmahon ANP [address] [place] [address] PCP - General Family Medicine 06/18/21 documented as of this encounter
--- OUTSIDE RECORDS SUMMARY | 2025-01-07 16:34 | XMS_ITS | Clinical Summary ---
Author Organization [employer] Address [address] [facility] [address] [place] [address] Care Team Providers Care Data Collection Technician Name Role Phone Salome Marianna CABALLERO Primary Care Provider [phone] Allergies Active Allergy Reactions Criticality Noted Date [...] Active Problems Problem Noted Date Diagnosed Date Dyslipidemia 12/28/2024 Pre-op evaluation 10/01/2024 Assessment & Plan (10/01/2024 [...] stopping. EKG Interpretation Rate: 70 Rhythm: NSR [place]: Normal Minor inferior repolarization disturbance, aspecific change [...] Encounters Date Type Department Care Team Description 12/28/2024 10:15 AM EDT Office Visit [facility] [address] [place] [phone] Marianna Mcmahon ANP Transaminitis (Primary Dx); Benign essential HTN; Smokes cigarettes; Dyslipidemia 12/28/2024 Telephone [facility] [address] [place] [address] Marianna Mcmahon ANP Lung Cancer Screening Referral 12/28/2024 Travel 12/17/2024 Patient Outreach [address] [address] Marianna Mcmahon ANP Pre-visit Planning (Pre-visit planning - LVM ) 12/12/[address] [address] Marianna Mcmahon ANP Benign essential HTN 10/29/[address] [address] Francis Arciniega [place] December recall from Last 3 Months Immunizations Name Administration [...] Sign Reading Time Taken Comments Blood Pressure 140/96 12/28/2024 11:00 AM EDT Pulse 80 12/28/2024 10:11 AM EDT Temperature 36.8 ??C (98.2 ??F) 12/28/2024 10:11 AM E DT Respiratory Rate 18 12/28/2024 10:11 AM EDT Oxygen Saturation 98% 12/28/2024 10:11 AM EDT Inhaled Oxygen Concentration - - Weight 70.8 kg (156 lb) 12/28/2024 10:11 AM EDT Height 167.6 cm (5' 6 ) 12/28/2024 10:11 AM EDT Body Mass Index 25.18 12/28/2024 10:11 AM EDT Plan of Treatment Upcoming Encounters Date Type Department Care Team (Late st Contact Info) Description 03/08/2025 10:00 AM EDT Office Visit [facility] ADULT D[facility]AL [address] [place] [address] Marli Smyth 03/31/2025 10:00 AM EDT Office Visit [facility] MED[facility]INE [address] [place] [address] Marianna Mcmahon ANP [address] [place], [place] [phone] Health Maintenance Due Date Last Done Comments CT Colonography 1967 Dental X-Ray: Full Mouth 1967 FIT DNA/Cologuard 1967 FIT 1967 FOBT 1967 HIV Screening 1967 Sigmoidoscopy 1967 Hepatitis C Screening 1985 Hepatitis B Vaccines (1 of 3 - 19+ 3-dose series) 1986 Dental Oral Exam 03/08/2025 09/07/2024, 01/2018, 12/01/2015, Additional history exists Dental Prophylaxis 03/08/2025 09/07/2024, 0 06/02/2018, 06/03/2016, Additional history exists Diabetes: Hemoglobin A1C 04/06/2025 04/06/2024 Depression Screening 06/17/2025 06/17/2024, 06/17/20 Dental X-Ray: Bitewings 09/08/2025 09/07/20 24, 01/21/2018, 12/01/2015, Additional history exists Alcohol/Substance Use Screening 09/20/2025 09/20/2024 SDOH Screening 12/28/2025 12/28/2024 Tobacco Screening 12/28/2025 12/28/2024 Lipid Panel 04/06/2029 04/06/2024 Colonoscopy 09/03/2029 Colorectal Cancer Screening 09/03/2029 DTaP/Tdap/Td Vaccines (2 - Td or Tdap) [...] on patient's age to complete this topic Hepatitis A Vaccines Aged Out No long er eligible based on patient's age to complete [...] Procedure Name Priority Date/Time Associated Diagnosis Comments Full PROPHYLAXIS - ADULT Routine 09/07/2024 8:00 [...] Recently Relevant to Health Maintenance Results * Hemoglobin A1c (04/06/2024 8:39 AM EDT) Hemoglobin A1c 5.9 <6.0 % [facility] Comment:Hemoglobin A1C Refer ence Range Adults: 4.8 - 6.0 % Non diabetic: < 6.0 % Goal: < 7.0 %Additional Action Suggested: > 8.0 %Note: Hemoglobin A1c results are invalid for patients with abnormal amounts of HbF. Blood transfusions may impact the HbA1c concentration in the patient sample. Estimated Average Glucose 123 mg/dL [facility] Comment:eAG = Estimated ave rage glucose which is %A1C expressed asaverage glucose, using the formula of the H2M-NtxcawbXmnsqsq Glucose study (ADAG), Diabetes Care, Vol.31,#8,May. 2007 Blood Venous blood specimen / Unknown 04/06/2024 8:39 AM EDT 04/06/2024 8:39 AM EDT [facility] BLOOD ORDERABLES Final Resul t [facility] [address] [place] [phone] * (ABNORMAL) Lipid Panel, Standard (04/06/2024 8:39 AM EDT) Triglycerides 221(H) <150 mg/dL [facility] Comment:Desirable Triglyceri de: less than 150 mg/dLBorderline High Triglyceride 150-199 mg/dLHigh Triglyceride: 200-499 mg/dLVery High Triglyceride: greater than or equal to 5OO mg/dL Cholesterol 300(H) <200 mg/dL [facility] Comment:Desirable Cholestero l: less than 200 mg/dLBorderline High Cholesterol: 200-239 mg/dLHigh Cholesterol: greater than 239 mg/dL LDL Cholesterol Calculated 222(H) <100 mg/dL [facility] Comment:Desirable LDL: less than 100 mg/dLNear Optimal/Above Optimal LDL: 110- 129 mg/dLBorderline High LDL: 130-159 mg/dLHigh LDL: 160-189 mg/dLVery High LDL: greater than or equal to 190 mg/dL HDL Cholesterol 34(L) >40 mg/dL [facility] Comment:Desirable HDL: great er than 40 mg/dL Note: This HDL assay may give artificially low results in patients with liver disease. Blood Venous blood specimen / Unknown 04/06/2024 8:39 AM EDT 04/06/2024 8:39 AM EDT us Marianna Mcmahon [facility] BLOOD ORDERABLES Final Resul t [facility] [address] [place] [phone] from Last 3 Months or Most Recently Relevant to Health Maintenance Insurance [address] [address] [facility] [address] [address] DENTAL - HSN PARTIAL (MEDICAID) [address] [address] Care Teams Data Collection Technician Relationship Specialty Start Date End Date Marianna Mcmahon ANP [address] [place] [phone] PCP - General Family Medicine 06/18/21
--- OUTSIDE RECORDS SUMMARY | 2025-01-07 16:34 | XMS_ITS | Encounter Summary ---
Author Organization [employer] Address [address] [facility] [address]t [place] [address] Care Team Providers Care Live In Housekeeper Nanny Name Role Phone Marianna Mcmahon Primary Care Provider [phone] Reason for Visit * Reason Comments Pre-visit Planning Pre-visit planning - LVM Encounter Details Date Type Department Care Team ([facility] Contact Info) Description 12/17/2024 Patient Outreach [facility] MEDICINE [address] [place], [place] [phone] Marianna Mcmahon ANP [address] [place] [address] Pre-visit Planning (Pre-visit planning - LVM ) Social History Tobacco Use Types Packs/Day Years [...] AM EDT documented as of this encounter Progress Notes * Nikia Connolly - 12/17/2024 10:49 AM EST [employer] placed outbound call to patient to complete pre-visit planning. No answer at this time. Patient name and were not confirmed. CC left voicemail requesting return call. Direct contact information provided. documented in this encounter Plan of Treatment Upcoming Encounters Date Type Department Care Team (Late st Contact Info) Description 03/08/2025 10:00 AM EDT Office Visit [facility] ADULT DENTAL [address] [place] [address] Marli Smyth 03/31/2025 10:00 AM EDT Office Visit [facility] MEDICINE [address] [place] [address] Marianna Mcmahon ANP [address] [place] [address] documented as of this encounter Visit Diagnoses Not on filedocumented in this encounter Care Teams Live In Housekeeper Nanny Relationship Specialty Start Date End Date Marianna Mcmahon ANP [address] [place] [address] PCP - General Family Medicine 06/18/21 documented as of this encounter
--- OUTSIDE RECORDS SUMMARY | 2025-01-07 16:34 | XMS_ITS | Encounter Summary ---
Author Organization [employer] Address [address] [facility] [address]t [place] [address] Care Team Providers Care Gear Generator Set Up Operator Name Role Phone Marianna Mcmahon Primary Care Provider [phone] Reason for Visit * Reason Comments Med Refill Encounter Details Date Type Department Care Team ([facility] st Contact Info) Description 12/12/2024 Refill [facility] [address] [place], [place] [phone] Marianna Mcmahon ANP [address] [place], [place] [phone] Benign essential HTN Social History Tobacco Use [...] Description 03/08/2025 10:00 AM EDT Office Visit [facility] ADULT DENTAL [address] [place] [address] Marli Smyth 03/31/2025 10:00 AM EDT Office Visit [facility] MEDICINE [address] [place] [address] Marianna Mcmahon ANP [address] [place] [address] documented as of this encounter Visit Diagnoses Diagnosis Benign essential HTN documented in this encounter Care Teams Gear Generator Set Up Operator Relationship Specialty Start Date End Date Marianna Mcmahon ANP [address] [place] [phone] PCP - General Family Medicine 06/18/21 documented as of this encounter
--- OUTSIDE RECORDS SUMMARY | 2025-01-07 16:34 | XMS_ITS | Encounter Summary ---
Author Organization [employer] Address [address] [facility] [address] [place] [address] Care Team Providers Care Home Theater Specialist Name Role Phone Keila Dobson Primary Care Provider [phone] Encounter Details Date Type Department Care Team (Latest Contact Info) Description 12/28/2024 10:15 AM EDT Office Visit [facility] [address], [place] [phone] Keila Dobson ANP [address] [place] [address] Transaminitis (Primary Dx); Benign essential HTN; Smokes cigarettes; Dyslipidemia Social History Tobacco Use Types Packs/Day Years [...] AM EDT documented as of this encounter Last Filed Vital Signs Vital Sign Reading [...] Mass Index 25.18 12/28/2024 10:11 AM EDT documented in this encounter Progress Notes * FEDERICO Charles - 12/28/2024 10:15 AM EDT Subjective Patient ID: Braxton Moeller is a 59 y.o. male who presents for HTN. HPI Here today w/ spouse Nery for HTN follow-up. PMH HTN, now s/p right shoulder arthroscopic surgery on 10/29/24 Highest home BP 145/98, but usually it is 130's over 80. Did not bring log. BP on repeat here 140/96 Smoking 9 cigs/d. Has not tried NRT gum. Asked him to please do so. CRC screening: He did do c-scope and EGD and was found to have h. Pylori and completed tx and has appt next mo for follow-up w/ GI. We will request c-scope report notes (update: Received: next due 08/2029) HLD: Taking atorvastatin 20mg, due for repeat lipid panel, previously ordered not yet obtained. Lab Results Component Value Date TRIG 221 (H) 04/06/2024 Lab Results Component Value Date CHOL 300 (H) 04/06/2024 HDL 34 (L) 04/06/2024 LDLCHOLCAL 222 (H) 04/06/2024 TRIG 221 (H) 04/06/2024 R shoulder is healing well and he does not even have to do PT b/c he is responding well to home exercise program. Review of Systems Constitutional: Negative for chills and fever. HENT: Negative for sore throat. Respiratory: Negative for cough and shortness of breath. Cardiovascular: Negative for chest pain. Gastrointestinal: Negative for constipation and diarrhea. Endocrine: Negative for polydipsia, polyphagia and polyuria. Genitourinary: Negative for dysuria. Objective BP (!) 140/96 (BP Location: Left arm, Patient Position: Sitting, BP Cuff Size: Large adult) Pulse 80 Temp 98.2 ??F (36.8 ??C) (Temporal) Resp 18 Ht 5' 6 (1.676 m) Wt 156 lb (70.8kg) SpO2 98% BMI 25.18 kg/m?? Physical Exam Vitals reviewed. Constitutional: General: He is not in acute distress. Appearance: Normal appearance. He is not ill-appearing. HENT: Head: Normocephalic and atraumatic. Eyes: General: No scleral icterus. Extraocular Movements: Extraocular movements intact. Pupils: Pupils are equal, round, and reactive to light. Cardiovascular: Rate and Rhythm: Normal rate and regular rhythm. Pulmonary: Effort: Pulmonary effort is normal. No accessory muscle usage or respiratory distress. Breath sounds: Normal breath sounds. Neurological: Mental Status: He is alert and oriented to person, place, and time. Psychiatric: Mood and Affect: Mood normal. Behavior: Behavior normal. Assessment/Plan Diagnoses and all orders for this visit: Transaminitis Repeat labs and encourage patient to decrease alcohol intake (drinks 4 beers twice a week), increase fiber intake and regular exercise Due for HCV screening, will add plus HBV serology - Comprehensive Metabolic Panel; Future Benign essential HTN BP above goal, goal </= 130/80. Reports home blood pressures at goal. Will ask team to out reachpatient to review log in a few weeks. Continue to encourage low salt diet, regular exercise, home BP monitoring, compliance with medications. Call clinic if BP is frequently >150/90 Go to ED/call 911 if > 170/100 and having sx such as ARMAS, visual changes, chest pain, SOB Last renal function: Lab Results Component Value Date GLUCOSE 93 10/01/2024 NA 139 10/01/2024 K 4.4 10/01/2024 CO2 27 10/01/2024 CL 103 10/01/2024 BUN 11 10/01/2024 CREATININE 0.84 10/01/2024 EGFR >60 10/01/2024 No results found for: MICROALBCREA Lab Results Component Value Date MICROALBCREU 18.1 09/20/2024 Smokes cigarettes Previously sent referral for LDCT but cannot locate in chart. Sent again in May. Smoked since 25yo, quit for 3 years once. Estimate 0.75 PPD average. 23.25 PYH. 12/28/24 Addendum From Manda MCGOWAN: Called [facility] ([phone]) to follow up on lung cancer screening referral and pt is scheduled to be seen on 01/28/25 @ 11 am. Dyslipidemia Continue atorvastatin and lifestyle changes as below. He got nausea w/ rosuvastatin 5mg. Lifestyle recommendations to improve heart health & lower cholesterol: be as active as able, ideally exercise 150min moderate intensity or 75min vigorous intensity weekly; increase intake of vegetables, fruits, whole grains, fish. Try to minimize intake of sugary or greasy food and drink. Use olive oil or vegetable, peanut, canola, or similar oil for cooking. Decrease or stop drinking alcoholif you drink, quit/decrease smoking if you smoke. - Lipid Panel, Standard; Future documented in this encounter Miscellaneous Notes * Addendum Note - FEDERICO Charles - 12/28/2024 10:15 AM EDTAddended by: KEILA DOBSON on: 12/28/2024 03:13 PM Modules accepted: Orders documented in this encounter Plan of Treatment Upcoming Encounters Date Type Department Care Team (Late st Contact Info) Description 03/08/2025 10:00 AM EDT Office Visit [facility] ADULT DENT[facility] [address] [place] [address] Marli Smyth 03/31/2025 10:00 AM EDT Office Visit [facility] [address] [place] [address] Keila Dobson ANP [address] [place], [place] [phone] Scheduled Orders Name Type Priority Associated Diagnoses Orde r Schedule Comprehensive Metabolic Panel Lab Routine Transaminitis Expected: 12/28/2024 (Approximate), Expires: 12/28/2025 Lipid Panel, Standard Lab Routine Dyslipidemia Expected: 12/28/2024 (Approximate), Expires: 12/28/2025 Hepatitis C Antibody with Reflex to HCV, RNA, Quantitative, Real-Time PCR Lab Routine Transaminitis Expected: 12/28/2024 (Approximate), Expires: 12/28/2025 Hepatitis B Core Antibody, Total Lab Routine Transaminitis Expected: 12/28/2024 (Approximate), Expires: 12/28/2025 Hepatitis B surface antigen, EIA Lab Routine Transaminitis Expected: 12/28/2024 (Approximate), Expires: 12/28/2025 Hepatitis B Surface Antibody, Qualitative Lab Routine Transaminitis Expected: 12/28/2024 (Approximate), Expires: 12/28/2025 documented as of this encounter Visit Diagnoses Diagnosis Transaminitis- Primary Nonspecific elevation of levels of transaminase or lactic acid dehydrogenase (LDH) Benign essential HTN Smokes cigarettes Dyslipidemia Other and unspecified hyperlipidemia documented in this encounter Care Teams Home Theater Specialist Relationship Specialty Start Date End Date Keila Dobson ANP [address] [place] [phone] PCP - General Family Medicine 06/18/21 documented as of this encounter
--- OUTSIDE RECORDS SUMMARY | 2025-01-07 16:34 | XMS_ITS | Encounter Summary ---
Author Organization [employer] Address [address] [facility] [address] [facility] [address] [place] [address] Care Team Providers Care Surgical Corsetier Name Role Phone McmahonMarianna Primary Care Provider [phone] Encounter Details Date Type Department Care Team (Latest Contact Info) Description 12/28/2024 Travel Social History Tobacco Use Types Packs/Day Years [...] Description 03/08/2025 10:00 AM EDT Office Visit [facility] ADULT DENT[facility] [address] [place] [address] Marli Smyth 03/31/2025 10:00 AM EDT Office Visit [facility] [address] [place] [address] Marianna Mcmahon ANP [address] [place] [address] documented as of this encounter Visit Diagnoses Not on filedocumented in this encounter Care Teams Surgical Corsetier Relationship Specialty Start Date End Date Marianna Mcmahon ANP [address] [place] [address] PCP - General Family Medicine 06/18/21 documented as of this encounter
== END 2025-01-07 15:11 | disposition home or self-care (01) ==
PROVIDERS: PCP Nurse Practitioner Primary Care; Visit Provider Nurse Practitioner Family
DX: D36.9 Benign neoplasm, unspecified site (principal); Z86.19 Personal history of other infectious and parasitic diseases; K21.9 Gastro-esophageal reflux disease without esophagitis; K59.01 Slow transit constipation
CPT/HCPCS: 99214; G2211

== ENCOUNTER → 2025-01-07 14:14 | Outpatient (BNVA) | payer OTHER, SELFPAY | PROVIDERS: PCP Nurse Practitioner Primary Care; Visit Provider Nurse Practitioner Family | DX: K21.9 Gastro-esophageal reflux disease without esophagitis (principal); K59.01 Slow transit constipation; D36.9 Benign neoplasm, unspecified site; Z86.19 Personal history of other infectious and parasitic diseases | CPT/HCPCS: 99212 ==

== ENCOUNTER 2025-01-24 08:00 | Outpatient (REF) | payer OTHER, SELFPAY ==
--- OUTSIDE RECORDS SUMMARY | 2025-01-24 08:06 | XMS_ITS | Clinical Summary ---
Author Organization [employer] Address [address] [facility] 7t [place] [address] Care Team Providers Care Director Of Consulting Services Name Role Phone Salome Marianna CABALLERO Primary Care Provider [phone] Allergies Active Allergy Reactions Criticality Noted Date Comments Oxycodone-Acetaminophen Palpitations Low 07/30/2024 Medications pantoprazole (ProtoNix) 20 MG EC tablet Take 20 mg by mouth before breakfast. Do not crush, chew, or split. Active albuterol 108 (90 Base) MCG/ACT inhalerIndication s:Mild intermittent asthma in adult without complication Inhale 2 puffs Every 4-6 hours as needed for wheezing or shortness of breath. 18 g 1 4 Active gabapentin (Neurontin) 100 MG capsuleIndication s:Neuropathic pain, arm Take 2 capsules (200 mg) by mouth every 8 (eight) hours. 180 capsule 2 4 Active Diclofenac Sodium (Voltaren) 1 % gelIndications:Ch ronic right shoulder pain Apply up to 4x/d to affected joint(s) for pain/swelling 100 g 2 4 Active nicotine (Nicoderm, Step 3) 7 MG/24HR patchIndications: Cigarette nicotine dependence without complication Place 1 patch on the skin 1 (one) time each day at the same time. 28 patch 1 4 Active nicotine polacrilex (Nicorette) 2 MG gumIndications:Ci garette nicotine dependence without complication Chew 1 each (2 mg) if needed for smoking cessation (up to every 2 hours). 100 each 11 4 Active cetirizine (ZyrTEC) 10 MG tabletIndications :Chronic cough Take 1 tab afternoon 30 tablet 2 4 Active aspirin (Aspirin Adult Low Dose) 81 MG EC tabletIndications :Cardiovascular event risk Take 1 tablet (81 mg) by mouth Once per day. Do not start before November 03, 2024. 90 tablet 1 5 05/02/20 25 Active atorvastatin (Lipitor) 20 MG tabletIndications :Cardiovascular event risk Take 1 tablet (20 mg) by mouth Once per day. 90 tablet 1 4 03/19/20 25 Active nicotine (Nicoderm CQ) 14 MG/24HR patchIndications: Cigarette nicotine dependence without complication Place 1 patch on the skin 1 (one) time each day at the same time. 42 patch 4 Active losartan (Cozaar) 100 MG tabletIndications :Benign essential HTN TAKE 1 TABLET BY MOUTH EVERY DAY 90 tablet 1 5 Active Active Problems Problem Noted Date Diagnosed Date [...] stopping. EKG Interpretation Rate: 70 Rhythm: NSR [place]: Normal Minor inferior repolarization disturbance, aspecific change [...] Encounters Date Type Department Care Team Description 01/14/[address] [address] Marianna Mcmahon ANP Lab Orders 12/28/2024 10:15 AM EDT Office Visit [address] [address] Marianna Mcmahon ANP Transaminitis (Primary Dx); Benign essential HTN; Smokes cigarettes; Dyslipidemia 12/28/2024 Telephone [facility] [address] [place] [address] Marianna Mcmahon ANP Lung Cancer Screening Referral 12/28/2024 Travel 12/17/2024 Patient Outreach [address] [address] Marianna Mcmahon ANP Pre-visit Planning (Pre-visit planning - LVM ) 12/12/[address] [address] Marianna Mcmahon ANP Benign essential HTN 10/29/[address] [address] Francis Arciniega [place] December recall from Last [...] Date Smoking Tobacco: Every Day Cigarettes 0.5 38.3 Started: 1984 Smokeless Tobacco: Never Tobacco Cessation:Ready [...] Description 03/08/2025 10:00 AM EDT Office Visit [facility]ULT [facility] [address] [place] [address] Marli Smyth 03/31/2025 10:00 AM EDT Office Visit [facility] [address] [place], [place] [phone] Marianna Mcmahon ANP [address] [place] [address] Health Maintenance Due Date Last Done Comments [...] AM EDT) Hemoglobin A1c 5.9 <6.0 % [facility] Comment:Hemoglobin A1C Refer ence Range Adults: 4.8 - 6.0 % Non diabetic: < 6.0 % Goal: < 7.0 %Additional Action Suggested: > 8.0 %Note: Hemoglobin A1c results are invalid for patients with abnormal amounts of HbF. Blood transfusions may impact the HbA1c concentration in the patient sample. Estimated Average Glucose 123 mg/dL [facility] Comment:eAG = Estimated ave rage glucose which is %A1C expressed asaverage glucose, using the formula of the D1E-NgkppjiUqbwtlc Glucose study (ADAG), Diabetes Care, Vol.31,#8,May. 2007 Blood Venous blood specimen / Unknown 04/06/2024 8:39 AM EDT 04/06/2024 8:39 AM EDT Marianna Mcmahon [facility] BLOOD ORDERABLES Final Resul t [facility] [address] [place] [address] [phone] * (ABNORMAL) Lipid Panel, Standard (04/06/2024 8:39 AM EDT) Triglycerides 221(H) <150 mg/dL [facility] Comment:Desirable Triglyceri de: less than 150 mg/dLBorderline High Triglyceride 150-199 mg/dLHigh Triglyceride: 200-499 mg/dLVery High Triglyceride: greater than or equal to 5OO mg/dL Cholesterol 300(H) <200 mg/dL [facility] Comment:Desirable Cholestero l: less than 200 mg/dLBorderline High Cholesterol: 200-239 mg/dLHigh Cholesterol: greater than 239 mg/dL LDL Cholesterol Calculated 222(H) <100 mg/dL [facility] Comment:Desirable LDL: less than 100 mg/dLNear Optimal/Above Optimal LDL: 110- 129 mg/dLBorderline High LDL: 130-159 mg/dLHigh LDL: 160-189 mg/dLVery High LDL: greater than or equal to 190 mg/dL HDL Cholesterol 34(L) >40 mg/dL [facility] Comment:Desirable HDL: great er than 40 mg/dL Note: This HDL assay may give artificially low results in patients with liver disease. Blood Venous blood specimen / Unknown 04/06/2024 8:39 AM EDT 04/06/2024 8:39 AM EDT Marianna Mcmahon [facility] BLOOD ORDERABLES Final Resul t [facility] [address] [place] [address] [phone] from Last 3 Months or Most Recently Relevant to Health Maintenance Insurance [address] [address] [facility] PARTIAL [facility] [address] DENTAL - HSN PARTIAL (MEDICAID) [address] [address] Care Teams Director Of Consulting Services Relationship Specialty Start Date End Date Marianna Mcmahon ANP [address] [place] [phone] PCP - General Family Medicine 06/18/21
[2025-01-24 11:35] LABS: Estimated Average Glucose 128 mg/dL; Hemoglobin A1C 190.2502 umol/L; Hemoglobin A1c % 6.1 % (<6.0); Total Hemoglobin (HGBA1C) 4390.6615 umol/L
[2025-01-24 13:22] LABS: Alanine Aminotransferase 48 U/L (0-40); Albumin Level 4.3 g/dL (3.5-5.0); Alkaline Phosphatase 106 U/L (39-117); Anion Gap 14 (12-20); Aspartate Amino Transferase 75 U/L (5-37); Bilirubin Total 0.5 mg/dL (0.0-1.0); Blood Urea Nitrogen 12 mg/dL (9-16); Calcium 9.9 mg/dL (8.4-10.2); Carbon Dioxide 26 mmol/L (22-29); Chloride 105 mmol/L (96-108); Cholesterol 259 mg/dL (<200); Estimated Glomerular Filt Rate > 60; Glucose Random 125 mg/dL (60-115); HDL Cholesterol 32 mg/dL (>40); LDL Cholesterol Calculated 187 mg/dL (<100); Potassium 4.6 mmol/L (3.3-5.1); Sodium 140 mmol/L (135-145); Total Protein 7.7 g/dL (6.5-8.0); Triglycerides 201 mg/dL (<150)
[2025-01-25 04:57] LABS: HBc Num1 0.08 S/CO (0.00-0.79); HBsAGNum1 0.29 S/CO (0.00-0.99); Hepatitis B Core Antibody Nonreactive (Nonreactive); Hepatitis B Surface Antigen Negative (Negative); ~HepC Num1 0.09 S/CO (0.00-0.79); ~Hepatitis B Surface Antibody NONREACTIVE (Nonreactive); ~Hepatitis C Antibody Nonreactive (Nonreactive)
== END 2025-01-24 08:01 | disposition home or self-care (01) ==
LOC: HO.HHCL 08:00
PROVIDERS: Visit Provider Nurse Practitioner Primary Care
DX: R74.01 Elevation of levels of liver transaminase levels (principal); R73.03 Prediabetes; E78.5 Hyperlipidemia, unspecified
CPT/HCPCS: 36415; 80053; 80061; 83036; 86704; 86706; 86803; 87340

== ENCOUNTER 2025-01-28 10:29 | Outpatient (AMB) | payer OTHER, SELFPAY ==
--- NOTE | 2025-01-28 08:02 | A.OFFVIS_ITS ---
Intake Visit Reasons: Current Smoker Allergies oxycodone [From Percocet] Adverse Reaction (Intermediate, Verified 01/07/25 14 :29) fast heartbeat HPI HPI Current Smoker: Details: Initial visit for this 59yo smoker with a 20PYH. Patient started smoking at age 22 for 37 years at 1/2-3/4ppd. . Denies marijuana use. Denies second hand smoke exposure. Denies exposure to chemicals or substances like asbestos. . Denies known family history of lung cancer. Denies personal history of cancers. Denies chest CT in last year. . Denies recent travel outside the [place]. Denies recent respiratory illness or recent hospitalization for respiratory issues. Denies testing positive for COVID. Admits receiving COVID Vaccine. . Denies fever, chills, new/worsening cough, hemoptysis, hoarseness or dysphagia. Denies significant chest pain, significant dyspnea or unintentional weight loss. Patient Lung Cancer Screening Questionnaire reviewed with patient by provider. . Shared Decision Making Completed. Patient meets criteria. Discussed in detail with patient, the risk vs benefit of LDCT screening. Patient consents to proceed with scan. Discussed smoking cessation. [facility] Medical History (Updated 01/28/25 @ 10:57 by Nikia Mclain PA-C) Tubular adenoma of colon Nicotine dependence, cigarettes, uncomplicated History of Helicobacter pylori infection Bleeding hemorrhoids HTN (hypertension) Asthma IBS (irritable bowel syndrome) GERD (gastroesophageal reflux disease) Surgical History History of shoulder surgery History of colonoscopy History of esophagogastroduodenoscopy (EGD) Family History Father Asthma High blood pressure Mother Asthma High blood pressure Social History (Updated 01/28/25 @ 10:57 by Nikia Mclian PA-C) Household Members Other:: and niece Are you a primary wound care nurse to a significant other at home: No Do you presently have visiting nurse or other home services: No Alcohol intake: current Patient Tobacco Use Status: Current everyday Tobacco user Tobacco use type: Cigarette Cigarettes Per Day: 10 Years Smoked: (onset 22yo, 1/2-3/4ppd x 37yrs, 20pyh) Assessment & Plan Assessment & Plan (1) Nicotine dependence, cigarettes, uncomplicated: Comment: (onset 22yo, 1/2-3/4ppd x 37yrs, 20+pyh) Code(s): F17.210 - Nicotine dependence, cigarettes, uncomplicated Category: Medical Plan: - SDM visit completed today in office. - Patient meets criteria for LDCT for lung cancer screening purposes and is asymptomatic. - Smoking cessation counseling offered. Patients can always call [phone]. - Will arrange for a LDCT scan of the chest for screening purposes at [facility]. - Risks, benefits, and alternatives were discussed in detail and the patient agrees to proceed. - Risks discussed include but are not limited to: radiation exposure, anxiety during testing and while awaiting results, false negatives, false positives and possibility of additional intervention such as further imaging or surgical p rocedures for benign disease. - Benefits are obviously detection of lung cancer at an early stage which can lead to improved outcomes. - Discussed the importance of screening program compliance with adherence to yearly LDCT scan as scheduled - or sooner interval scans for personalized screening regimen. - Discussed follow up plan. Our office will send a letter discussing results and if needed set up phone call and office visit based on CT findings. - Patient educated on results categorization and the management decisions for suspicious findings potentially found on the screening LDCT scan. Any patient with a Lung RADS score of 3 or 4 will be reviewed by a multidisciplinary team at [facility] to form a plan of action in regards to scan findings. - If further work up is warranted for a suspicious lung finding this will be followed by the Lung Cancer Screening program in conjunction with the Thoracic Surgery Department at [facility]. - A copy of the office note and LDCT will be sent to the patient's PCP - as well as documentation on any associated further plans of care. - Incidental findings on LDCT are the PCP's responsibility. These findings are indicated with an S finding on the LDCT Assessment. A note discussing the findings will be sent to the PCP who is then responsible for further management. - All questions answered.? Coding Level of Care Code Lung Cancer Screening G0296 Diagnoses Nicotine dependence, cigarettes, uncomplicated F17.210
--- OUTSIDE RECORDS SUMMARY | 2025-01-28 11:20 | XMS_ITS | Encounter Summary ---
Author Organization [employer] Address [address] [facility] [address] [facility] [address] [place] [address] Care Team Providers Care Director Of Recruiting Name Role Phone McmahonMarianna Primary Care Provider [phone] Encounter Details Date Type Department Care Team (Latest Contact Info) Description 01/27/2025 1:00 PM EDT Clinical Support [facility] [address] [place] [address] Ema Gibbs RN Encounter for immunization Social History Tobacco Use Types Packs/Day Years Used Date Smoking Tobacco: Every Day Cigarettes 0.5 38.3 Started: 1984 Smokeless Tobacco: Never Alcohol Answer [...] as of this encounter Progress Notes * Ema Gibbs RN - 01/27/2025 1:00 PM EDT Subjective Patient ID: Braxton Moeller is a 59 y.o. male who presents for hepatitis B Vaccine. Pt here for hepatitis B Vaccine. Per record and patient reporting indicate that patient has no allergies that contraindicate today's vaccinations. Vaccine administered in [facility]. Pt tolerated well, pt will stay for observation for 15minutes post vaccination for observation by nurse. documented in this encounter Plan of Treatment Upcoming Encounters Date Type Department Care Team (Late st Contact Info) Description 02/24/2025 1:00 PM EDT Immunization [facility] [address] [place] [phone] 03/08/2025 10:00 AM EDT Office Visit [facility] ADULT DENTAL [address] [place] [phone] Marli Smyth 03/31/2025 10:00 AM EDT Office Visit [facility] [address] [place] [phone] Marianna Mcmahon ANP [address] [place] [phone] documented as of this encounter Visit Diagnoses Diagnosis Encounter for immunization documented in this encounter Care Teams Director Of Recruiting Relationship Specialty Start Date End Date Marianna Mcmahon ANP [address] [place] [phone] PCP - General Family Medicine 06/18/21 documented as of this encounter
--- OUTSIDE RECORDS SUMMARY | 2025-01-28 11:20 | XMS_ITS | Clinical Summary ---
Author Organization [employer] Address [address] [facility] [address] [place] [address] Care Team Providers Care Band Nailer Name Role Phone Salome Marianna CABALLERO Primary Care Provider [phone] Allergies Active Allergy Reactions Criticality Noted Date [...] 1 4 Active gabapentin (Neurontin) 100 MG capsuleIndicatio ns:Neuropathic pain, arm Take 2 capsules (200 mg) by mouth every 8 (eight) hours. 180 capsule 2 4 Active Diclofenac Sodium (Voltaren) 1 % gelIndications:C hronic right shoulder pain Apply up to 4x/d to affected joint(s) for pain/swelling 100 g 2 4 Active nicotine (Nicoderm, Step 3) 7 MG/24HR patchIndications :Cigarette nicotine dependence without complication Place 1 patch on the skin 1 (one) time each day at the same time. 28 patch 1 4 Active nicotine polacrilex (Nicorette) 2 MG gumIndications:C igarette nicotine dependence without complication Chew 1 each (2 mg) if needed for smoking cessation (up to every 2 hours). 100 each 11 4 Active cetirizine (ZyrTEC) 10 MG tabletIndication s:Chronic cough Take 1 tab afternoon 30 tablet 2 4 Active aspirin (Aspirin Adult Low Dose) 81 MG EC tabletIndication s:Cardiovascular event risk Take 1 tablet (81 mg) by mouth Once per day. Do not start before November 03, 2024. 90 tablet 1 5 05/02/20 25 Active nicotine (Nicoderm CQ) 14 MG/24HR patchIndications :Cigarette nicotine dependence without complication Place 1 patch on the skin 1 (one) time each day at the same time. 42 patch 4 Active losartan (Cozaar) 100 MG tabletIndication s:Benign essential HTN TAKE 1 TABLET BY MOUTH EVERY DAY 90 tablet 1 5 Active atorvastatin (Lipitor) 40 MG tabletIndication s:Dyslipidemia Take 1 tablet (40 mg) by mouth Once per day. 90 tablet 1 5 01/27/20 26 Active atorvastatin (Lipitor) 20 MG tabletIndication s:Cardiovascular event risk Take 1 tablet (20 mg) by mouth Once per day. 90 tablet 1 4 01/27/20 25 Discontin ued(Dose adjustmen t) Active Problems Problem Noted Date Diagnosed Date Transaminitis 01/26/2025 Dyslipidemia 12/28/2024 Pre-op evaluation 10/01/2024 Assessment & [...] stopping. EKG Interpretation Rate: 70 Rhythm: NSR [place]: Normal Minor inferior repolarization disturbance, aspecific change [...] Encounters Date Type Department Care Team Description 01/27/2025 1:00 PM EDT Clinical Support [address] [address] Ema Gibbs RN Encounter for immunization 01/26/[address] [address] Ema Sims RN Results 01/14/[address] [address] Marianna Mcmahon ANP Lab Orders 12/28/2024 10:15 AM EDT Office Visit [address] [address] Marianna Mcmahon ANP Transaminitis (Primary Dx); Benign essential HTN; Smokes cigarettes; Dyslipidemia 12/28/2024 Telephone [facility] [address] [place] [address] Marianna Mcmahon ANP Lung Cancer Screening Referral 12/28/2024 Travel 12/17/2024 Patient Outreach [address] [address] Marianna Mcmahon ANP Pre-visit Planning (Pre-visit planning - LVM ) 12/12/[address] [address] Marianna Mcmahon ANP Benign essential HTN from Last 3 Months Immunizations Name Administration Dates Next Due Hep B, adult 01/27/2025 Influenza Injectable Quadriv alant Preservative Free IIV4 [...] Info) Description 02/24/2025 1:00 PM EDT Immunization [facility] MEDICINE [address] [place] [address] 03/08/2025 10:00 AM EDT Office Visit [facility] ADULT DENTAL [address] [place] [address] Marli Smyth 03/31/2025 10:00 AM EDT Office Visit [facility] MEDICINE [address] [place] [address] Marianna Mcmahon ANP [address] [place] [address] Health Maintenance Due Date Last Done Comments CT Colonography 1967 Dental X-Ray: Full Mouth 1967 FIT DNA/Cologuard 1967 FIT 1967 FOBT 1967 HIV Screening 1967 Sigmoidoscopy 1967 Hepatitis B Vaccines (2 of 3 - 19+ 3-dose series) 02/24/2025 01/27/2025 Dental Oral Exam 03/08/2025 09/07/2024, 01/2018, 12/01/2015, Additional history exists Dental Prophylaxis 03/08/2025 09/07/2024, 0 06/02/2018, 06/03/2016, Additional history exists Depression Screening 06/17/2025 06/17/2024, 06/17/20 Dental X-Ray: Bitewings 09/08/2025 09/07/20 24, 01/21/2018, 12/01/2015, Additional history exists Alcohol/Substance Use Screening 09/20/2025 09/20/2024 SDOH Screening 12/28/2025 12/28/2024 Tobacco Screening 12/28/2025 12/28/2024 Diabetes: Hemoglobin A1C 01/24/2026 01/24/2025, 03/20 Colonoscopy 09/03/2029 Colorectal Cancer Screening 09/03/2029 Lipid Panel 01/24/2030 01/24/2025, 04/06/2024 DTaP/Tdap/Td Vaccines (2 - Td or Tdap) 06/18/2031 06/18/2021 RSV Patients and Patients Aged 60 years or older (1 - 1-dose 75+ series) 2042 Zoster Vaccines Completed 02/19/2023, 12/19/2022 Influenza Vaccine Completed 06/24/2024, , 09/22/2020, Additional history exists COVID-19 Vaccine Completed 08/03/2024, 11/2022, 10/17/2021, Additional history exists Pneumococcal Vaccine: 50+ Years Completed 09/20/2024 Hepatitis C Screening Completed 01/24/2025 HIB Vaccines Aged Out No longer eligi [...] Procedure Name Priority Date/Time Associated Diagnosis Comments HEPATITIS B SURFACE ANTIBODY, QUALITATIVE Routine 01/24/2025 8:04 AM EDT Transaminitis HEPATITIS B SURFACE ANTIGEN, EIA Routine 01/24/2025 8:04 AM EDT Transaminitis HEPATITIS B CORE AB TOTAL Routine 01/24/2025 8:04 AM EDT Transaminitis HEPATITIS C AB W/REFL TO HCV RNA, QN, PCR Routine 01/24/2025 8:04 AM EDT Transaminitis COMPREHENSIVE METABOLIC PANEL Routine 01/24/2025 8:04 AM EDT Transaminitis HEMOGLOBIN A1C Routine 01/24/2025 8:04 AM EDT Prediabetes LIPID PANEL, STANDARD Routine 01/24/2025 8:04 AM EDT Dyslipidemia Full PROPHYLAXIS - ADULT Routine 09/07/2024 8:00 AM EST Dental calculus Dental plaque BITEWINGS - 4 RADIOGRAPHIC IMAGES Routine 09/07/2024 8:00 AM EST PERIODIC ORAL EVALUATION - ESTABLISHED PATIENT Routine 09/07/2024 8:00 AM EST Dental calculus Dental plaque Encounter for dental examination Dental caries Gingival recession, localized from Last 3 Months or Most Recently Relevant to Health Maintenance Results * Hepatitis C Antibody with Reflex to HCV, RNA, Quantitative, Real-Time PCR (01/24/2025 8:04 AM EDT) Hepatitis C Antibody Nonreactive Nonreactive [facility] Comment:Antibodies to HCV no t detected; does not exclude early acuteHCV infection. Blood Venous blood specimen / Unknown 01/24/2025 8:04 AM EDT 01/24/2025 11:07 AM EDT Marianna [facility] LAB BLOOD ORDERABLES Final Resul t [facility] [address] [place] [phone] * Hepatitis B surface antigen, EIA (01/24/2025 8:04 AM EDT) Pathologist [facility] [place] Hepatitis B Surface Ag Negative Negative [facility] Blood Venous blood specimen / Unknown 01/24/2025 8:04 AM EDT 01/24/2025 11:07 AM EDT Marianna Mcmahon ANP LAB BLOOD ORDERABLES Final Resul t Performing Organization Address [facility] de Phone Number [facility] [address] [place] [phone] * Hepatitis B Core Antibody, Total (01/24/2025 8:04 AM EDT) [facility] Hepatitis B Core Antibody Nonreactive Nonreactive [facility] Blood Venous blood specimen / Unknown 01/24/2025 8:04 AM EDT 01/24/2025 11:07 AM EDT Marianna Mcmahon [facility] LAB BLOOD ORDERABLES Final Resul t Performing Organization Address [facility] de Phone Number [facility] [address] [place] [phone] * Hepatitis B Surface Antibody, Qualitative (01/24/2025 8:04 AM EDT) Pathologist [facility] [place] ~Hepatitis B Surface Antibody NONREACTIVE Nonreactive [facility] Comment:Nonreactive: < 8.00 mIU/mL Blood Venous blood specimen / Unknown 01/24/2025 8:04 AM EDT 01/24/2025 11:07 AM EDT Marianna Mcmahon [facility] LAB BLOOD ORDERABLES Final Resul t Performing Organization Address [facility] de Phone Number [facility] [address] [place] [phone] * (ABNORMAL) Hemoglobin A1c (01/24/2025 8:04 AM EDT) Pathologist [facility] [place] Hemoglobin A1c 6.1(H) <6.0 % [facility] Comment:Hemoglobin A1C Refer ence Range Adults: 4.8 - 6.0 % Non diabetic: < 6.0 % Goal: < 7.0 %Additional Action Suggested: > 8.0 %Note: Hemoglobin A1c results are invalid for patients with abnormal amounts of HbF. Blood transfusions may impact the HbA1c concentration in the patient sample. Estimated Average Glucose 128 mg/dL [facility] Comment:eAG = Estimated ave rage glucose which is %A1C expressed asaverage glucose, using the formula of the E0F-[id number] Glucose study (ADAG), Diabetes Care, Vol.31,#8,May. 2007 Blood Venous blood specimen / Unknown 01/24/2025 8:04 AM EDT 01/24/2025 11:07 AM EDT Marianna Mcmahon [facility] LAB BLOOD ORDERABLES Final Resul t [facility] [address] [place], [place] [phone] * (ABNORMAL) Lipid Panel, Standard (01/24/2025 8:04 AM EDT) Triglycerides 201(H) <150 mg/dL [facility] Comment:Desirable Triglyceri de: less than 150 mg/dLBorderline High Triglyceride 150-199 mg/dLHigh Triglyceride: 200-499 mg/dLVery High Triglyceride: greater than or equal to 5OO mg/dL Cholesterol 259(H) <200 mg/dL [facility] Comment:Desirable Cholestero l: less than 200 mg/dLBorderline High Cholesterol: 200-239 mg/dLHigh Cholesterol: greater than 239 mg/dL LDL Cholesterol Calculated 187(H) <100 mg/dL [facility] Comment:Desirable LDL: less than 100 mg/dLNear Optimal/Above Optimal LDL: 110- 129 mg/dLBorderline High LDL: 130-159 mg/dLHigh LDL: 160-189 mg/dLVery High LDL: greater than or equal to 190 mg/dL HDL Cholesterol 32(L) >40 mg/dL [facility] Comment:Desirable HDL: great er than 40 mg/dL Note: This HDL assay may give artificially low results in patients with liver disease. Blood Venous blood specimen / Unknown 01/24/2025 8:04 AM EDT 01/24/2025 11:07 AM EDT Marianna [facility] LAB BLOOD ORDERABLES Final Resul t [facility] [address] [place] [phone] * (ABNORMAL) Comprehensive Metabolic Panel (01/24/2025 8:04 AM EDT) Sodium 140 135 - 145 mmol/L [facility] Potassium 4.6 3.3 - 5.1 mmol/L [facility] Chloride 105 96 - 108 mmol/L [facility] Carbon Dioxide 26 22 - 29 mmol/L [facility] Anion Gap 14 12 - 20 [facility] Urea Nitrogen (BUN) 12 9 - 16 mg/dL [facility] Creatinine, Serum 0.85 0.5 - 1.4 mg/dL [facility] Estimated Glomerular Filt Rate >60 [facility] Comment:Chronic Kidney Disea se: Estimated GFR < 60 mL/min/[id number] Kidney Disease: Estimated GFR < 15 mL/min/1.73m2 Glucose 125(H) 60 - 115 mg/dL [facility] Calcium 9.9 8.4 - 10.2 mg/dL [facility] Bilirubin, Total 0.5 0.0 - 1.0 mg/dL [facility] Aspartate Amino Transferase 75(H) 5 - 37 U/L [facility] Alanine Aminotransferase 48(H) 0 - 40 U/L [facility] Total Protein 7.7 6.5 - 8.0 g/dL [facility] Albumin Level 4.3 3.5 - 5.0 g/dL [facility] Alkaline Phosphatase 106 39 - 117 U/L [facility] Blood Venous blood specimen / Unknown 01/24/2025 8:04 AM EDT 01/24/2025 11:07 AM EDT [facility] LAB BLOOD ORDERABLES Final Resul t [facility] [address] [place] [phone] [phone] from Last 3 Months Insurance [address] [address] HSN PARTIAL FORMERLY [facility] [address] [address] DENTAL - HSN PARTIAL (MEDICAID) [address] [address] [address] [facility] [address] [address] Care Teams Band Nailer Relationship Specialty Start Date End Date Marianna Mcmahon ANP [address] [place] [phone] PCP - General Family Medicine 06/18/21
--- OUTSIDE RECORDS SUMMARY | 2025-01-28 11:20 | XMS_ITS | Encounter Summary ---
Author Organization [employer] [facility] Address [address] [facility] [address] [place] [address] Care Team Providers Care Ve Teacher Name Role Phone Keila Dobson Primary Care Provider [phone] Reason for Referral * Imaging (Routine) - Authorized Specialty Diagnoses / Procedures Referred By Jackie muniz Referred To Contact Radiology Diagnoses Transaminitis Procedures US Abdomen Complete Keila Dobson ANP [address] [place] [address] Phone: tel: fax: [address] Phone: tel: fax: Referral ID Status Reason Start Date Expiration Date V isits Requested Visits Authorized [id number] Authorized 01/25/2025 01/25/2026 1 1 Encounter Details Date Type Department Care Team (Latest Contact Info) Description 12/28/2024 10:15 AM EDT Office Visit [facility] [address] [place], [place] [phone] Keila Dobson ANP [address] [place], [place] [phone] Transaminitis (Primary Dx); Benign essential HTN; Smokes [...] PYH. 12/28/24 Addendum From Manda MCGOWAN: Called [facility] Pulmonology ([phone]) to follow up on lung cancer screening [...] documented in this encounter Miscellaneous Notes * Result Encounter Note - FEDERICO Charles - 12/28/2024 10:15 AM EDT Please ask pt if he is taking atorvastatin daily - his cholesterol remains quite elevated. I would recommend he take it if he is not taking, and if he is taking, we may have to consider alternative. I will order an abdominal US to evaluate his liver d/t elevated LFTs (though stable), and I continueto recommend decreased alcohol intake. Also non-immune to hep B - please schedule at vaccine clinicif he is willing. A1c is ok, preDM. Reinforce lifestyle recommendations: Lifestyle recommendations to improve heart health & [...] you drink, quit/decrease smoking if you smoke. * Addendum Note - FEDERICO Charles - 12/28/2024 10:15 AM EDTAddended by: KEILA DOBSON on: 12/28/2024 03:13 PM Modules accepted: Orders * Addendum Note - FEDERICO Charles - 12/28/2024 10:15 AM EDTAddended by: KEILA DOBSON on: 01/25/2025 04:25 PM Modules accepted: Orders documented in this encounter Plan of Treatment Upcoming Encounters Date Type Department Care Team (Late st Contact Info) Description 02/24/2025 1:00 PM EDT Immunization [facility] [address] [place] [address] 03/08/2025 10:00 AM EDT Office Visit [facility] ADULT DENTAL [address] [place] [address] Marli Smyth 03/31/2025 10:00 AM EDT Office Visit [facility] [address] [place] [address] Keila Dobson ANP [address] [place] [address] Scheduled Orders Name Type Priority Associated Diagnoses Orde r Schedule Lipid Panel, Standard Lab Routine Dyslipidemia Expected: 12/28/2024 (Approximate), Expires: 12/28/2025 US Abdomen Complete Imaging Routine Transaminitis Expected: 01/25/2025, Expires: 01/25/2026 documented as of this encounter Procedures Procedure Name Priority Date/Time Associated Diagnosis Comments HEPATITIS C AB W/REFL TO HCV RNA, QN, PCR Routine 01/24/2025 8:04 AM EDT Transaminitis HEPATITIS B SURFACE ANTIGEN, EIA Routine 01/24/2025 8:04 AM EDT Transaminitis HEPATITIS B CORE AB TOTAL Routine 01/24/2025 8:04 AM EDT Transaminitis HEPATITIS B SURFACE ANTIBODY, QUALITATIVE Routine 01/24/2025 8:04 AM EDT Transaminitis COMPREHENSIVE METABOLIC PANEL Routine 01/24/2025 8:04 AM EDT Transaminitis documented in this encounter Results * Hepatitis B Surface Antibody, Qualitative (01/24/2025 8:04 AM EDT) ~Hepatitis B Surface Antibody NONREACTIVE Nonreactive [facility] Comment:Nonreactive: < 8.00 mIU/mL Blood Venous blood specimen / Unknown 01/24/2025 8:04 AM EDT 01/24/2025 11:07 AM EDT Keila Dobson [facility] LAB BLOOD ORDERABLES Final Resul t Performing Organization Address [facility] Co de Phone Number [facility] [address] [place] [phone] * Hepatitis B surface antigen, EIA (01/24/2025 8:04 AM EDT) Hepatitis B Surface Ag Negative Negative [facility] Blood Venous blood specimen / Unknown 01/24/2025 8:04 AM EDT 01/24/2025 11:07 AM EDT Keila Dobson [facility] LAB BLOOD ORDERABLES Final Resul t Performing Organization Address [facility] Co de Phone Number [facility] [address] [place] [phone] * Hepatitis B Core Antibody, Total (01/24/2025 8:04 AM EDT) Hepatitis B Core Antibody Nonreactive Nonreactive [facility] Blood Venous blood specimen / Unknown 01/24/2025 8:04 AM EDT 01/24/2025 11:07 AM EDT Keila Dobson [facility] LAB BLOOD ORDERABLES Final Resul t Performing Organization Address [facility] de Phone Number [facility] [address] [place] [phone] * Hepatitis C Antibody with Reflex to HCV, RNA, Quantitative, Real-Time PCR (01/24/2025 8:04 AM EDT) Hepatitis C Antibody Nonreactive Nonreactive [facility] Comment:Antibodies to HCV no t detected; does not exclude early acuteHCV infection. Blood Venous blood specimen / Unknown 01/24/2025 8:04 AM EDT 01/24/2025 11:07 AM EDT us Keila Dobson ANP LAB BLOOD ORDERABLES Final Resul t [facility] [address] [place] [phone] * (ABNORMAL) Comprehensive Metabolic Panel (01/24/2025 8:04 AM EDT) Sodium 140 135 - 145 mmol/L [facility] Potassium 4.6 3.3 - 5.1 mmol/L [facility] Chloride 105 96 - 108 mmol/L [facility] Carbon Dioxide 26 22 - 29 mmol/L [facility] Anion Gap 14 12 - 20 [facility] Urea Nitrogen (BUN) 12 9 - 16 mg/dL [facility] Creatinine, Serum 0.85 0.5 - 1.4 mg/dL [facility] Estimated Glomerular Filt Rate >60 [facility] Comment:Chronic Kidney Disea se: Estimated GFR < 60 mL/min/1.92l5Mrlajt Kidney Disease: Estimated GFR < 15 mL/min/1.73m2 Glucose 125(H) 60 - 115 mg/dL [facility] Calcium 9.9 8.4 - 10.2 mg/dL [facility] Bilirubin, Total 0.5 0.0 - 1.0 mg/dL [facility] Aspartate Amino Transferase 75(H) 5 - 37 U/L [facility] Alanine Aminotransferase 48(H) 0 - 40 U/L [facility] Total Protein 7.7 6.5 - 8.0 g/dL [facility] Albumin Level 4.3 3.5 - 5.0 g/dL [facility] Alkaline Phosphatase 106 39 - 117 U/L [facility] Blood Venous blood specimen / Unknown 01/24/2025 8:04 AM EDT 01/24/2025 11:07 AM EDT us Keila CABALLERO LAB BLOOD ORDERABLES Final Resul t [facility] [address] [place] [phone] documented in this encounter Visit Diagnoses Diagnosis Transaminitis- Primary Nonspecific elevation of levels of transaminase or lactic acid dehydrogenase (LDH) Benign essential HTN Smokes cigarettes Dyslipidemia Other and unspecified hyperlipidemia documented in this encounter Care Teams Ve Teacher Relationship Specialty Start Date End Date Keila Dobson, FEDERICO [address] [place] [phone] PCP - General Family Medicine 06/18/21 documented as of this encounter
--- OUTSIDE RECORDS SUMMARY | 2025-01-28 11:20 | XMS_ITS | Encounter Summary ---
Author Organization [employer] Address [address] [place] [address] Care Team Providers Care Head School Custodian Name Role Phone Keila Dobson Primary Care Provider [phone] Reason for Visit * Reason Onset Date Comments Results 01/26/2025 Encounter Details Date Type Department Care Team ([facility] Contact Info) Description 01/26/2025 Telephone [facility] MEDICINE [address] [place], [place] [phone] Ema Sims RN Results Social History Tobacco Use Types Packs/Day Years [...] encounter Miscellaneous Notes * Telephone Encounter - Tika Dubon RN - 01/26/2025 4:08 PM EDT Telephone call returned to [place], Nery was present who pt preferred for translation. Advised ofbelow message from PCP: plan for now is to increase atorvastatin to 40mg - that pt can take 2 tabs (total of 40mg today) from current Rx or can picking supervisor new medication 40mg at pharmacy, clarified 2x. E xplained to repeat liver and lipid labs in 6 weeks (around March 09, 2025) and that depending on the results, PCP may adjust the atorvastatin dose again and add another medication in. Pt and verbalized understanding, advised them to call clinic if any questions or concerns present. * Addendum Note - FEDERICO Charles - 01/26/2025 12:01 PM EDTAddended by: KEILA DOBSON on: 01/26/2025 12:01 PM Modules accepted: Orders * Telephone Encounter - FEDERICO Charles - 01/26/2025 11:54 AM EDT First we will try higher dose of atorvastatin (40mg) for next 6 weeks and if he could please repeatliver function tests and lipids at that time, that would be great. If LFTs go up more, we will bring atorvastatin back down to 20mg and add ezetimibe. Then will consider repatha if needed instead of either statin or ezetimibe depending on repeat abs and imaging. He can take 20mg tab x2 of atorvastatin until he picks up the 40mg tabs. * Telephone Encounter - Ema Sims RN - 01/26/2025 11:00 AM EDT TC placed to pt and spoke with Nery (HIPAA compliant) to inform of results below and lifestyle recommendations per PCP. Pt confirms that they have been taking the Atorvastatin daily as prescribed andwas agreeable to starting on an alternative to help provide better cholesterol control. Pt also informed of the abdominal US that was ordered due to an elevation of liver enzymes and that the pt willbe contacted to schedule this imaging. Pt will work on lifestyle modifications including decreasingalcohol intake and is scheduled with the vaccine clinic on 01/27/2025 to receive the hepatitis B vaccine. ----- Message from Keila Dobson sent at 01/25/2025 4:25 PM EDT ----- Please ask pt if he is taking [...] drink, quit/decrease smoking if you smoke. * Telephone Encounter - Jenny Linton - 01/26/2025 10:00 AM EDT TC from pt returning call. * Telephone Encounter - Ema Sims RN - 01/26/2025 9:10 AM EDT TC placed to pt and LVM to call back the office in regards to message below regarding test results . ----- Message from Keila Dobson sent at 01/25/2025 4:25 PM EDT ----- Please ask pt if he is taking [...] you drink, quit/decrease smoking if you smoke. documented in this encounter Plan of Treatment Upcoming Encounters Date Type Department Care Team (Late st Contact Info) Description 02/24/2025 1:00 PM EDT Immunization [facility]INE [address] [place] [address] 03/08/2025 10:00 AM EDT Office Visit [facility] ADULT DENTAL [address] [place] [address] Marli Smyth 03/31/2025 10:00 AM EDT Office Visit [facility] MEDICINE [address] [place] [address] Keila Dobson, ANP [address] [place] [address] Scheduled Orders Name Type Priority Associated Diagnoses Orde r Schedule Hepatic Function Panel Lab Routine Transaminitis Expected: 02/25/2025 (Approximate), Expires: 01/26/2026 Lipid Panel, Standard Lab Routine Dyslipidemia Expected: 02/25/2025 (Approximate), Expires: 01/26/2026 documented as of this encounter Visit Diagnoses Diagnosis Dyslipidemia- Primary Other and unspecified hyperlipidemia Transaminitis Nonspecific elevation of levels of transaminase or lactic acid dehydrogenase (LDH) documented in this encounter Care Teams Head School Custodian Relationship Specialty Start Date End Date Keial Dobson ANP [address] [place] [address] PCP - General Family Medicine 06/18/21 documented as of this encounter
== END 2025-01-28 11:06 | disposition home or self-care (01) ==
LOC: HO.HPS 10:29
PROVIDERS: PCP Nurse Practitioner Primary Care; Visit Provider Physician Assistant Medical
DX: F17.210 Nicotine dependence, cigarettes, uncomplicated (principal)
CPT/HCPCS: G0296

== ENCOUNTER 2025-01-28 11:02 | Outpatient (REF) | payer OTHER, SELFPAY ==
--- NOTE | ~2025-01-28 | CT_ITS ---
CLINICAL HISTORY: F17.210 - Nicotine dependence, cigarettes, uncomplicated cigarettes, uncomplicated ; 148 lbs, 1/2 ppd X 48 yrs; Additional Information:-148 lbs, 1/2 ppd [address] lung cancer screening (LDCT) Comparison: None Technique: Axial CT images of the chest using low-dose technique. Referring provider counseled the patient on shared decision-making for LDCT screening. Additional counseling was provided on smoking cessation. Effective radiation dose total: DLP 39.5 mGycm, CTDIvol 1.1 mGy. Findings: Lung: Mild emphysema. Multiple pulmonary nodules: 3.6 mm in the right upper lobe series 4, image 26; 3.6 mm para fissural nodule of the right upper lobe image 64; 6.2 mm subpleural nodule of the left lower lobe image 114; 5 mm para fissural nodule of the left lower lobe image 81. Coronary artery calcifications: Mild Limited upper abdomen: Limited evaluation of the hypodense lesions of the bilateral kidney. Other: None Impression: LungRADS 3 - Probably benign: Recommend low dose screening Chest CT in 6 months. ##L3# Category 1: Normal; continue annual screening Category 2: Benign appearance or behavior, continue annual screening Category 3: Probably benign, [address] recommended Category 4A: Suspicious, [address] recommended; may consider PET/CT Category 4B: Suspicious, Additional diagnostics and/or tissue sampling recommended Category 4X: Suspicious, Additional diagnostics and/or tissue sampling recommended Category 0: Recalls (incomplete screen due to Incomplete coverage, Noise, Respiratory motion, Expiration, Obscured by acute abnormality) This document has been electronically signed by: Pradip Washington MD on 01/28/2025 15:56:59
== END 2025-01-28 11:03 | disposition home or self-care (01) ==
LOC: HO.CT 11:02
PROVIDERS: PCP Nurse Practitioner Primary Care; Visit Provider Physician Assistant Medical
DX: Z12.2 Encounter for screening for malignant neoplasm of respiratory organs (principal); F17.210 Nicotine dependence, cigarettes, uncomplicated
CPT/HCPCS: 71271; G0296

== ENCOUNTER → 2025-01-28 11:06 | Outpatient (BNV) | payer OTHER, SELFPAY | PROVIDERS: PCP Nurse Practitioner Primary Care; Visit Provider Nuclear Medicine | DX: F17.210 Nicotine dependence, cigarettes, uncomplicated (principal) | CPT/HCPCS: 71271 ==

== ENCOUNTER 2025-03-07 09:46 | Outpatient (REF) | payer OTHER, SELFPAY ==
--- NOTE | ~2025-03-07 | US_ITS ---
CLINICAL HISTORY: transaminitis US abdomen complete with color Doppler Comparison: None Findings: The visualized pancreas, aorta, and inferior vena cava are unremarkable. Liver normal size and is slightly echogenic Right lobe 13.5 cm length. No focal hepatic masses. Common duct 5.3 mm diameter. Physiologic distention of the gallbladder. No gallstones or sludge. No gallbladder wall thickening. No pericholecystic fluid. No sonographic Contreras sign. Main portal vein antegrade. Right kidney normal size, cm in length. Normal cortical width and echotexture. Upper pole cyst measuring 3.6 x 3.5 x 3.3 cm appears fairly simple. Probable cyst with through transmission midpole measuring 2.5 x 2.2 x 2.7 cm with probable reverberation artifact rather than internal echoes follow-up advised. Nonobstructing caliceal stone lower pole measuring 5 mm. Left kidney normal, 12.5 cm in length. Normal cortical width and echotexture. Exophytic cyst upper pole measuring 2.1 x 1.5 x 1.3 cm with internal echoes devoid of flow. No nephrolithiasis or hydronephrosis Spleen measures 7.7 cm. No splenic masses. No ascites. No lymphadenopathy. Impression: 1. Normal-sized liver slightly echogenic reflecting mild diffuse hepatic steatosis or diffuse hepatocellular disease. No focal hepatic lesions. 2. Upper pole left and midpole right probable renal cysts with mild complexity. Dedicated CT or MRI with and without contrast renal protocol study is recommended for better evaluation. Nephrolithiasis on the right. This document has been electronically signed by: Yves Andersen MD on 03/07/2025 10:42:36
--- OUTSIDE RECORDS SUMMARY | 2025-03-07 10:07 | XMS_ITS | Clinical Summary ---
Author Organization [employer] Address [address] [place] [address] Care Team Providers Care Marketing Secretary Name Role Phone Keila Dobson [place] Primary Care Provider [phone] Allergies Active Allergy Reactions Criticality Noted Date [...] 1 5 Active atorvastatin (Lipitor) 40 MG tabletIndications :Dyslipidemia Take 1 tablet (40 mg) by mouth Once per day. 90 tablet 1 5 01/27/20 26 Active Active Problems Problem Noted Date Diagnosed [...] stopping. EKG Interpretation Rate: 70 Rhythm: NSR [place]: Normal Minor inferior repolarization disturbance, aspecific change [...] Encounters Date Type Department Care Team Description 02/24/2025 1:00 PM EDT Immunization [address] [address] Tika Dubon RN Encounter for immunization 02/24/2025 Travel 02/17/[address] [address] Keila Dobson ANP Appointment Confirmation 02/17/2025 Travel 02/15/2025 Travel 01/28/2025 Orders Only [facility] External Provider, [facility] 01/27/2025 1:00 PM EDT Clinical Support [address] [address] Ema Gibbs RN Encounter for immunization 01/26/[address] [address] Ema Sims RN Results 01/14/[address] [address] Keila Dobson ANP Lab Orders 12/28/2024 10:15 AM EDT Office Visit [address] [address] Keila Dobson ANP Transaminitis (Primary Dx); Benign essential HTN; Smokes cigarettes; Dyslipidemia 12/28/2024 Telephone [facility] [address] [place] [address] Keila Dobson ANP Lung Cancer Screening Referral 12/28/2024 Travel 12/17/2024 Patient Outreach [address] [address] Keila Dobson ANP Pre-visit Planning (Pre-visit planning - LVM ) 12/12/[address] [address] Keila Dobson ANP Benign essential HTN from Last 3 Months Immunizations Immunization Administration Dates Next Due Hep B, adult 02/24/2025,01/27/2025 Influenza Injectable Quadriv alant Preservative Free IIV4 [...] Date Smoking Tobacco: Every Day Cigarettes 0.5 38.4 Started: 1986 Smokeless Tobacco: Never Tobacco Cessation:Ready [...] Care Team (Late st Contact Info) Description 03/31/2025 10:00 AM EDT Office Visit [facility] [address] [place] [address] Keila Dobson ANP [address] [place] [address] 09/06/2025 3:00 PM EST Office Visit [facility] [address] [place] [address] Marli Smyth Health Maintenance Due Date Last Done Comments CT Colonography 1967 Dental X-Ray: Full Mouth 1967 FIT DNA/Cologuard 1967 FIT 1967 FOBT 1967 HIV Screening 1965 Sigmoidoscopy 1967 Dental Oral Exam 03/08/2025 09/07/2024, 01/2018, 12/01/2015, Additional history exists Dental Prophylaxis 03/08/2025 09/07/2024, 0 06/02/2018, 06/03/2016, Additional history exists Depression Screening 06/17/2025 06/17/2024, 06/17/20 Hepatitis B Vaccines (3 of 3 - 19+ 3-dose series) 07/29/2025 02/24/2025, 01/27/2025 Dental X-Ray: Bitewings 09/08/2025 09/07/20 24, 01/21/2018, [...] patient's age to complete this topic Meningococcal B Vaccine Aged Out No l onger eligible based on patient's age to complete [...] Procedure Name Priority Date/Time Associated Diagnosis Comments LDCT LUNG SCREENING Routine 01/28/2025 3 :56 PM EDT HEPATITIS B SURFACE ANTIBODY, QUALITATIVE Routine 01/24/2025 [...] Recently Relevant to Health Maintenance Results * CT Lung Screening Low dose (01/28/2025 3:56 PM EDT) Anatomical Region Laterality Modality Lung Computed Tomogra phy 01/28/2025 3:56 PM EDT Narrative 01/28/2025 3:59 PM EDT ? [facility] ?[address] ?[place] [address] ? CT Scan Report ? Signed ? Patient: Moeller,Giovani ?MR#: [id number] ?? 3 ? : 1965 ?Acct:[id number] ? Age/Sex: 59 / M ?ADM Date: 01/28/25 ? Loc: HO.CT ? Attending Dr: Nikia Mclain PA-C ? Ordering Physician: Nikia Mclain PA-C ?? Date of Service: 01/28/25 ?? Procedure(s): CT lung screening ?? Accession Number(s): [id number] ? cc: Nikia Mclain PA-C; KEILA DOBSON NP ? Report Number: ?? [id number]: Total DLP = ?? 49.00 mGy-cm ? CLINICAL HISTORY: F17.210 - Nicotine dependence, cigarettes, uncomplicated ??cigarettes, uncomplicated; 148 lbs, 1/2 ppd X 48 yrs; Additional Information:-148 lbs, 1/2 ppd X 48 yrs ? CT lung cancer screening (LDCT) ? Comparison: None ? Technique: ?? Axial CT images of the chest using low-dose technique. Referring provider ?? counseled the patient on shared decision-making for LDCT screening. ?? Additional counseling was provided on smoking cessation. ?? Effective radiation dose total: DLP 39.5 mGycm, CTDIvol 1.1 mGy. ? Findings: ?? Lung: Mild emphysema. Multiple pulmonary nodules: 3.6 mm in the right ?? upper lobe series 4, image 26; 3.6 mm para fissural nodule of the right ?? upper lobe image 64; 6.2 mm subpleural nodule of the left lower lobe image ?? 114; 5 mm para fissural nodule of the left lower lobe image 81. ? Coronary artery calcifications: Mild ?? Limited upper abdomen: Limited evaluation of the hypodense lesions of the ?? bilateral kidney. ? Other: None ? Impression: ?? LungRADS 3 - Probably benign: Recommend low dose screening Chest CT in 6 ?? months. ? ##L3# ? Category 1: Normal; continue annual screening ?? Category 2: Benign appearance or behavior, continue annual screening ?? Category 3: Probably benign, [address] recommended ?? Category 4A: Suspicious, [address] recommended; may consider PET/CT ?? Category 4B: Suspicious, Additional diagnostics and/or tissue sampling ?? recommended ?? Category 4X: Suspicious, Additional diagnostics and/or tissue sampling ?? recommended ?? Category 0: Recalls (incomplete screen due to Incomplete coverage, Noise, ?? Respiratory motion, Expiration, Obscured by acute abnormality) ? This document has been electronically signed by: Pradip Washington MD on ?? 01/28/2025 15:56:59 ? Dictated By: ?Pradip Washington MD ? Signed By: ?<Electronically signed by Pradip Washington MD in OV> ? 01/28/25 1558 ? DD/ 1556 ? TD/TT: 01/28/25 1556 ? Needlemaker: ? Procedure Note Donaaliyah, Image - 01/28/[address] [place] [address] [address] Scan Report Signed Patient: Braxton Moeller AMR#: [id number] 3 : 1965Acct:[id number] Age/Sex: 59 / MADM Date: 01/28/25 Loc: HO.CT Attending Dr: Nikia Mclain PA-C Ordering Physician: Nikia Mclain PA-C Date of Service: 01/28/25 Procedure(s): CT lung screening Accession Number(s): [id number] cc: Nikia Mclain PA-C; KEILA DOBSON NP Report Number: [id number]: Total DLP = 49.00 mGy-cm CLINICAL HISTORY: F17.210 - Nicotine dependence, cigarettes, uncomplicatedcigarettes, uncomplicated; 148 lbs, 1/2 ppd X 48 yrs; Additional Information:-148 lbs,1/2 ppd [address] lung cancer screening (LDCT) Comparison: None Technique: Axial CT images of the chest using low-dose technique. Referring provider counseled the patient on shared decision-making for LDCT screening. Additional counseling was provided on smoking cessation. Effective radiation dose total: DLP 39.5 mGycm, CTDIvol 1.1 mGy. Findings: Lung: Mild emphysema. Multiple pulmonary nodules: 3.6 mm in the right upper lobe series 4, image 26; 3.6 mm para fissural nodule of the right upper lobe image 64; 6.2 mm subpleural nodule of the left lower lobe image 114; 5 mm para fissural nodule of the left lower lobe image 81. Coronary artery calcifications: Mild Limited upper abdomen: Limited evaluation of the hypodense lesions of the bilateral kidney. Other: None Impression: LungRADS 3 - Probably benign: Recommend low dose screening Chest CT in 6 months. ##L3# Category 1: Normal; continue annual screening Category 2: Benign appearance or behavior, continue annual screening Category 3: Probably benign, [address] recommended Category 4A: Suspicious, [address] recommended; may consider PET/CT Category 4B: Suspicious, Additional diagnostics and/or tissue sampling recommended Category 4X: Suspicious, Additional diagnostics and/or tissue sampling recommended Category 0: Recalls (incomplete screen due to Incomplete coverage, Noise, Respiratory motion, Expiration, Obscured by acute abnormality) This document has been electronically signed by: Pradip Washington MD on 01/28/2025 15:56:59 Dictated By: Pradip Washington MD Signed By: <Electronically signed by Pradip Washington MD in OV> 01/28/25 1558 DD/ 1556 TD/TT: 01/28/25 1556 Needlemaker: [facility] External Provider IMG CT PROCEDURES Final Result * Hepatitis C Antibody with Reflex to HCV, RNA, Quantitative, Real-Time PCR (01/24/2025 8:04 AM EDT) Hepatitis C Antibody Nonreactive Nonreactive [facility] Comment:Antibodies to HCV no t detected; does not exclude early acuteHCV infection. Blood Venous blood specimen / Unknown 01/24/2025 8:04 AM EDT 01/24/2025 11:07 AM EDT Keila Dobson ANP LAB BLOOD ORDERABLES Final Resul t Performing Organization Address [facility] de Phone Number [facility] [address] [place] [phone] * Hepatitis B surface antigen, EIA (01/24/2025 8:04 AM EDT) Hepatitis B Surface Ag Negative Negative [facility] Blood Venous blood specimen / Unknown 01/24/2025 8:04 AM EDT 01/24/2025 11:07 AM EDT Keila Dobson ANP LAB BLOOD ORDERABLES Final Resul t Performing Organization Address [facility] Phone Number [facility] [address] [place] [phone] * Hepatitis B Core Antibody, Total (01/24/2025 8:04 AM EDT) Hepatitis B Core Antibody Nonreactive Nonreactive [facility] Blood Venous blood specimen / Unknown 01/24/2025 8:04 AM EDT 01/24/2025 11:07 AM EDT us Keila Dobson [facility] LAB BLOOD ORDERABLES Final Resul t Performing Organization Address [facility] de Phone Number [facility] [address] [place] [phone] * Hepatitis B Surface Antibody, Qualitative (01/24/2025 8:04 AM EDT) ~Hepatitis B Surface Antibody NONREACTIVE Nonreactive [facility] Comment:Nonreactive: < 8.00 mIU/mL Blood Venous blood specimen / Unknown 01/24/2025 8:04 AM EDT 01/24/2025 11:07 AM EDT Keila Dobson ANP LAB BLOOD ORDERABLES Final Resul t Performing Organization Address City/[facility]/ZIP Co de Phone Number [facility] [address] [place] [phone] * (ABNORMAL) Hemoglobin A1c (01/24/2025 8:04 AM EDT) Hemoglobin A1c 6.1(H) <6.0 % [facility] Comment:Hemoglobin A1C Refer ence Range Adults: 4.8 - 6.0 % Non diabetic: < 6.0 % Goal: < 7.0 %Additional Action Suggested: > 8.0 %Note: Hemoglobin A1c results are invalid for patients with abnormal amounts of HbF. Blood transfusions may impact the HbA1c concentration in the patient sample. Estimated Average Glucose 128 mg/dL [facility] Comment:eAG = Estimated ave rage glucose which is %A1C expressed asaverage glucose, using the formula of the M8L-VrsxbwxPffdyay Glucose study (ADAG), Diabetes Care, Vol.31,#8,May. 2007 Blood Venous blood specimen / Unknown 01/24/2025 8:04 AM EDT 01/24/2025 11:07 AM EDT [facility] LAB BLOOD ORDERABLES Final Resul t Performing Organization Address [facility] Co de Phone Number [facility] [address] [place] [phone] * (ABNORMAL) Lipid Panel, Standard (01/24/2025 8:04 AM EDT) Triglycerides 201(H) <150 mg/dL [facility] Comment:Desirable Triglyceri de: less than 150 mg/dLBorderline High Triglyceride 150-199 mg/dLHigh Triglyceride: 200-499 mg/dLVery High Triglyceride: greater than or equal to 5OO mg/dL Cholesterol 259(H) <200 mg/dL [facility] Comment:Desirable Cholestero l: less than 200 mg/dLBorderline High Cholesterol: 200-239 mg/dLHigh Cholesterol: greater than 239 mg/dL LDL Cholesterol Calculated 187(H) <100 mg/dL [facility] Comment:Desirable LDL: less than 100 mg/dLNear Optimal/Above Optimal LDL: 110- 129 mg/dLBorderline High LDL: 130-159 mg/dLHigh LDL: 160-189 mg/dLVery High LDL: greater than or equal to 190 mg/dL HDL Cholesterol 32(L) >40 mg/dL [facility] Comment:Desirable HDL: great er than 40 mg/dL Note: This HDL assay may give artificially low results in patients with liver disease. Blood Venous blood specimen / Unknown 01/24/2025 8:04 AM EDT 01/24/2025 11:07 AM EDT us Keila Dobson [facility] LAB BLOOD ORDERABLES Final Resul t [facility] [address] [place] [phone] * (ABNORMAL) Comprehensive Metabolic Panel (01/24/2025 8:04 AM EDT) Sodium 140 135 - 145 mmol/L [facility] Potassium 4.6 3.3 - 5.1 mmol/L [facility] Chloride 105 96 - 108 mmol/L [facility] Carbon Dioxide 26 22 - 29 mmol/L [facility] Anion Gap 14 12 - 20 [facility] Urea Nitrogen (BUN) 12 9 - 16 mg/dL [facility] Creatinine, Serum 0.85 0.5 - 1.4 mg/dL [facility] Estimated Glomerular Filt Rate >60 [facility] Comment:Chronic Kidney Disea se: Estimated GFR < 60 mL/min/1.62b5Pscuhf Kidney Disease: Estimated GFR < 15 mL/min/1.73m2 Glucose 125(H) 60 - 115 mg/dL [facility] Calcium 9.9 8.4 - 10.2 mg/dL [facility] Bilirubin, Total 0.5 0.0 - 1.0 mg/dL [facility] Aspartate Amino Transferase 75(H) 5 - 37 U/L [facility] Alanine Aminotransferase 48(H) 0 - 40 U/L [facility] Total Protein 7.7 6.5 - 8.0 g/dL [facility] Albumin Level 4.3 3.5 - 5.0 g/dL [facility] Alkaline Phosphatase 106 39 - 117 U/L [facility] Blood Venous blood specimen / Unknown 01/24/2025 8:04 AM EDT 01/24/2025 11:07 AM EDT [facility] LAB BLOOD ORDERABLES Final Resul t [facility] [address] [place] [phone] [phone] from Last 3 Months Insurance [id number] [address] [id number] [address] DENTAL - HSN PARTIAL (MEDICAID) [id number] Care Teams Marketing Secretary Relationship Specialty Start Date End Date Keila Dobson ANP [address] [place] [phone] PCP - General Family Medicine 06/18/21
== END 2025-03-07 09:47 | disposition home or self-care (01) ==
LOC: HO.US 09:46
PROVIDERS: PCP Nurse Practitioner Primary Care; Visit Provider Nurse Practitioner Primary Care
DX: R74.01 Elevation of levels of liver transaminase levels (principal)
CPT/HCPCS: 76700

== ENCOUNTER → 2025-03-07 09:48 | Outpatient (BNV) | payer OTHER, SELFPAY | PROVIDERS: PCP Nurse Practitioner Primary Care; Visit Provider Radiology Diagnostic Radiology | DX: N20.0 Calculus of kidney (principal) | CPT/HCPCS: 76700 ==

== ENCOUNTER → 2025-03-26 15:55 | Outpatient (BNV) | payer OTHER, SELFPAY | PROVIDERS: PCP Nurse Practitioner Primary Care; Visit Provider Radiology Diagnostic Radiology | DX: N28.1 Cyst of kidney, acquired (principal); K86.89 Other specified diseases of pancreas | CPT/HCPCS: 74183 ==

== ENCOUNTER 2025-03-26 15:58 | Outpatient (REF) | payer OTHER, SELFPAY ==
--- NOTE | ~2025-03-26 | MR_ITS ---
EXAMINATION: MR ABDOMEN WITHOUT THEN WITH IV CONTRAST HISTORY: MULTIPLE RENAL CYSTS COMPARISON: Correlation is made with an abdominal ultrasound dated 03/07/2025. TECHNIQUE: Axial in and out of phase T1-weighted gradient echo, axial diffusion weighted, and axial and coronal HASTE T2 with fat saturation images were obtained through the abdomen. Subsequently, fat suppressed axial and coronal T1-weighted images were obtained after the intravenous administration of 6.5 mL Gadavist. FINDINGS: Liver: There is no loss of signal intensity in the liver on opposed phase imaging to suggest steatosis. There is no enhancing liver mass. The hepatic and portal veins are patent. There is no intra- or extrahepatic biliary dilatation. Gallbladder: No gallstones are identified. Spleen: The spleen is unremarkable. Pancreas: There is a tiny 4 mm T2 hyperintense focus in the pancreatic neck/body does not enhance may represent a tiny IPMN. The pancreatic duct is normal in caliber. Adrenals: The adrenal glands are unremarkable. Kidneys: There is a 3.5 x 3.2 x 3.6 cm simple cyst at the upper pole of the right kidney and a 2.2 x 1.6 x 1.8 cm simple cyst in the interpolar region. On the left, there is a 1.5 x 1.2 x 1.8 cm cyst at the upper pole which demonstrates a fluid/fluid level. The dependent fluid is T2 hypointense and T2 hyperintense consistent with proteinaceous or hemorrhagic content. There is no associated enhancement. There is no hydronephrosis. Lymph nodes: There is no retroperitoneal lymphadenopathy in the upper abdomen. Fluid: There is no ascites in the upper abdomen. Visualized bowel: The visualized bowels loops are unremarkable in appearance. Visualized bones: The visualized bones demonstrate normal marrow signal intensity. MR/MR abdomen wo/w con IMPRESSION: 1. There are 2 simple cysts in the right kidney. A single mildly complicated cyst is seen at the upper pole of the left kidney demonstrating a fluid/fluid level, consistent hemorrhagic or proteinaceous content. This represents a Bosniak II lesion and no additional follow-up is required. 2. 4 mm T2 hyperintense focus in the pancreatic neck/body which may represent a tiny IPMN. A follow-up examination in 12 months is recommended. Electronically signed by: Jose Bautista MD 03/28/2025 08:42 AM EDT RP
--- OUTSIDE RECORDS SUMMARY | 2025-03-26 16:03 | XMS_ITS | Clinical Summary ---
Author Organization [employer] Address [address] [place] [address] Care Team Providers Care Stud Sheep Farmer Name Role Phone SalomeKeila Primary Care Provider [phone] Allergies Active Allergy Reactions Criticality Noted Date [...] stopping. EKG Interpretation Rate: 70 Rhythm: NSR [place]: Normal Minor inferior repolarization disturbance, aspecific change [...] Encounters Date Type Department Care Team Description 03/24/2025 Travel 03/07/2025 Results Follow-Up [address] [address] Keila Dobson ANP US Abdomen Complete 02/24/2025 1:00 PM EDT Immunization [address] [address] Tika Dubon RN Encounter for immunization 02/24/2025 Travel 02/17/[address] [address] Keila Dobson ANP Appointment Confirmation 02/17/2025 Travel 02/15/2025 Travel 01/28/2025 Orders Only [facility] External Provider, [facility] 01/27/2025 1:00 PM EDT Clinical Support [address] [address] Ema Gibbs RN Encounter for immunization 01/26/[address] [address] Ema Sims RN Results 01/14/[address] [address] Keila Dobson ANP Lab Orders 12/28/2024 10:15 AM EDT Office Visit [address] [address] Keila Dobson ANP Transaminitis (Primary Dx); Benign essential HTN; Smokes cigarettes; Dyslipidemia; Multiple renal cysts 12/28/2024 Telephone [facility] [address] [place], [place] [phone] Keila Dobson ANP Lung Cancer Screening Referral 12/28/2024 Travel from Last 3 Months Immunizations Immunization Administration [...] Description 03/31/2025 10:00 AM EDT Office Visit [facility] [address] [place] [address] Keila Dobson ANP [address] [place] [address] 09/06/2025 3:00 PM EST Office Visit [facility] [address] [place] [address] Marli Smyth Health Maintenance Due Date Last [...] 12/28/2024 Diabetes: Hemoglobin A1C 01/24/2026 01/24/2025, 03/20 Disability Screening 03/24/2026 03/24/2025 Colonoscopy 09/03/2029 Colorectal Cancer Screening 09/03/2029 Lipid [...] Procedure Name Priority Date/Time Associated Diagnosis Comments US ABDOMEN COMPLETE Routine 03/07/2025 1 0:42 AM EDT Transaminitis LDCT LUNG SCREENING Routine 01/28/2025 3 :56 [...] Recently Relevant to Health Maintenance Results * US Abdomen Complete (03/07/2025 10:42 AM EDT) Anatomical Region Laterality Modality Abdomen Ultrasound 03/07/2025 10:4 2 AM EDT Narrative 03/07/2025 10:43 AM EDT ? [facility] ?[address] ?[place] [address] ? Ultrasound Report ? Signed ? Patient: Moeller,Giovani ?MR#: [id number] ?? 3 ? : 1965 ?Acct:[id number] ? Age/Sex: 60 / M ?ADM Date: 03/07/25 ? Loc: HO.US ? Attending Dr: Keila Dobson NP ? Ordering Physician: KEILA DOBSON NP ?? Date of Service: 03/07/25 ?? Procedure(s): US abdomen complete ?? Accession Number(s): [id number] ? cc: KEILA DOBSON NP ? CLINICAL HISTORY: transaminitis ? US abdomen complete with color Doppler ? Comparison: None ? Findings: ?? The visualized pancreas, aorta, and inferior vena cava are unremarkable. ? Liver normal size and is slightly echogenic Right lobe 13.5 cm length. No ?? focal hepatic masses. ?? Common duct 5.3 mm diameter. ?? Physiologic distention of the gallbladder. No gallstones or sludge. No ?? gallbladder wall thickening. No pericholecystic fluid. No sonographic ?? Contreras sign. ?? Main portal vein antegrade. ? Right kidney normal size, cm in length. Normal cortical width and ?? echotexture. Upper pole cyst measuring 3.6 x 3.5 x 3.3 cm appears fairly ?? simple. Probable cyst with through transmission midpole measuring 2.5 x ?? 2.2 x 2.7 cm with probable reverberation artifact rather than internal ?? echoes follow-up advised. Nonobstructing caliceal stone lower pole ?? measuring 5 mm. ?? Left kidney normal, 12.5 cm in length. Normal cortical width and ?? echotexture. Exophytic cyst upper pole measuring 2.1 x 1.5 x 1.3 cm with ?? internal echoes devoid of flow. No nephrolithiasis or hydronephrosis ? Spleen measures 7.7 cm. No splenic masses. ? No ascites. No lymphadenopathy. ? Impression: ?? 1. Normal-sized liver slightly echogenic reflecting mild diffuse hepatic ?? steatosis or diffuse hepatocellular disease. No focal hepatic lesions. ?? 2. Upper pole left and midpole right probable renal cysts with mild ?? complexity. Dedicated CT or MRI with and without contrast renal protocol ?? study is recommended for better evaluation. Nephrolithiasis on the right. ? This document has been electronically signed by: Yves Andersen MD on ?? 03/07/2025 10:42:36 ? Dictated By: ?Yves Andersen MD ? Signed By: ?<Electronically signed by Yves Andersen MD in OV> ?03/07/25 1043 ? DD/ 1042 ? TD/TT: 03/07/25 1042 ? Railway Shunter: ? Procedure Note Donotuseinterpreter, Image - 03/07/2025 [place] [address] Ultrasound Report Signed Patient: Braxton Moeller AMR#: [id number] 3 : 1965Acct:[id number] Age/Sex: 60 / MADM Date: 03/07/25 Loc: HO.US Attending Dr: Keila Dobson NP Ordering Physician: KEILA DOBSON NP Date of Service: 03/07/25 Procedure(s): US abdomen complete Accession Number(s): [id number] cc: KEILA DOBSON NP CLINICAL HISTORY: transaminitis US abdomen complete with color Doppler Comparison: None Findings: The visualized pancreas, aorta, and inferior vena cava are unremarkable. Liver normal size and is slightly echogenic Right lobe 13.5 cm length. No focal hepatic masses. Common duct 5.3 mm diameter. Physiologic distention of the gallbladder. No gallstones or sludge. No gallbladder wall thickening. No pericholecystic fluid. No sonographic Contreras sign. Main portal vein antegrade. Right kidney normal size, cm in length. Normal cortical width and echotexture. Upper pole cyst measuring 3.6 x 3.5 x 3.3 cm appears fairly simple. Probable cyst with through transmission midpole measuring 2.5 x 2.2 x 2.7 cm with probable reverberation artifact rather than internal echoes follow-up advised. Nonobstructing caliceal stone lower pole measuring 5 mm. Left kidney normal, 12.5 cm in length. Normal cortical width and echotexture. Exophytic cyst upper pole measuring 2.1 x 1.5 x 1.3 cm with internal echoes devoid of flow. No nephrolithiasis or hydronephrosis Spleen measures 7.7 cm. No splenic masses. No ascites. No lymphadenopathy. Impression: 1. Normal-sized liver slightly echogenic reflecting mild diffuse hepatic steatosis or diffuse hepatocellular disease. No focal hepatic lesions. 2. Upper pole left and midpole right probable renal cysts with mild complexity. Dedicated CT or MRI with and without contrast renal protocol study is recommended for better evaluation. Nephrolithiasis on the right. This document has been electronically signed by: Yves Andersen MD on 03/07/2025 10:42:36 Dictated By: Yves Andersen MD Signed By: <Electronically signed by Yves Andersen MD in OV> 03/07/25 1043 DD/ 1042 TD/TT: 03/07/25 1042 Railway Shunter: us Keila Dobson ANP IMG US PROCEDURES Edited Result - Final * CT Lung Screening Low dose (01/28/2025 3:56 PM EDT) Anatomical Region Laterality Modality Lung Computed Tomogra phy 01/28/2025 3:56 PM EDT Narrative 01/28/2025 3:59 PM EDT ? [facility] ?[address] ?[place] [address] ? CT Scan Report ? Signed ? Patient: Braxton Moeller ?MR#: [id number] ?? 3 ? : 1965 ?Acct:[id number] ? Age/Sex: 59 / M ?ADM Date: 01/28/25 ? Loc: HO.CT ? Attending Dr: Nikia Mclain PA-C ? Ordering Physician: Nikia Mclain PA-C ?? Date of Service: 01/28/25 ?? Procedure(s): CT lung screening ?? Accession Number(s): [id number] ? cc: Nikia Mclain PA-C; KEILA DOBSON NP ? Report Number: ?? [id number]: Total DLP = ?? 49.00 mGy-cm ? [...] DD/ 1556 ? TD/TT: 01/28/25 1556 ? Railway Shunter: ? Procedure Note Kacy, Joyce - 01/28/[address] [place] [address] CT Scan Report Signed Patient: Braxton Moeller [facility]#: [id number] 3 : 1965Acct:[id number] Age/Sex: 59 / MADM Date: 01/28/25 Loc: HO.CT Attending Dr: Nikia Mclain PA-C Ordering Physician: Nikia Mclain PA-C Date of Service: 01/28/25 Procedure(s): CT lung screening Accession Number(s): [id number] cc: Nikia Mclain PA-C; KEILA DOBSON NP Report Number: [id number]: Total DLP = 49.00 mGy-cm CLINICAL HISTORY: [...] 01/28/25 1558 DD/ 1556 TD/TT: 01/28/25 1556 Railway Shunter: Result [facility] External Provider IMG CT PROCEDURES Final Result * Hepatitis C Antibody with Reflex to HCV, RNA, Quantitative, Real-Time PCR (01/24/2025 8:04 AM EDT) Hepatitis C Antibody Nonreactive Nonreactive [facility] Comment:Antibodies to HCV no t detected; does not exclude early acuteHCV infection. Blood Venous blood specimen / Unknown 01/24/2025 8:04 AM EDT 01/24/2025 11:07 AM EDT Result [facility] Keila Dobson [facility] BLOOD ORDERABLES Final Resul t Performing Organization Address [facility] Co de Phone Number [facility] [address] [place] [phone] * Hepatitis B surface antigen, EIA (01/24/2025 8:04 AM EDT) Hepatitis B Surface Ag Negative Negative [facility] Blood Venous blood specimen / Unknown 01/24/2025 8:04 AM EDT 01/24/2025 11:07 AM EDT Result [facility] Keila Dobson [facility] BLOOD ORDERABLES Final Resul t Performing Organization Address [facility] Co de Phone Number [facility] [address] [place] [phone] * Hepatitis B Core Antibody, Total (01/24/2025 8:04 AM EDT) Hepatitis B Core Antibody Nonreactive Nonreactive [facility] Blood Venous blood specimen / Unknown 01/24/2025 8:04 AM EDT 01/24/2025 11:07 AM EDT Keila Dobson ANP LAB BLOOD ORDERABLES Final Resul t Performing Organization Address [facility] Co de Phone Number [facility] [address] [place] [phone] * Hepatitis B Surface Antibody, Qualitative (01/24/2025 8:04 AM EDT) ~Hepatitis B Surface Antibody NONREACTIVE Nonreactive [facility] Comment:Nonreactive: < 8.00 mIU/mL Blood Venous blood specimen / Unknown 01/24/2025 8:04 AM EDT 01/24/2025 11:07 AM EDT Keila Dobson ANP LAB BLOOD ORDERABLES Final Resul t Performing Organization Address [facility] de Phone Number [facility] [address] [place] [phone] * (ABNORMAL) Hemoglobin A1c (01/24/2025 8:04 AM EDT) Pathologist [facility] Hemoglobin A1c 6.1(H) <6.0 % [facility] Comment:Hemoglobin A1C Refer ence Range Adults: 4.8 - 6.0 % Non diabetic: < 6.0 % Goal: < 7.0 %Additional Action Suggested: > 8.0 %Note: Hemoglobin A1c results are invalid for patients with abnormal amounts of HbF. Blood transfusions may impact the HbA1c concentration in the patient sample. Estimated Average Glucose 128 mg/dL [facility] Comment:eAG = Estimated ave rage glucose which is %A1C expressed asaverage glucose, using the formula of the [id number] Glucose study (ADAG), Diabetes Care, Vol.31,#8,2007 Blood Venous blood specimen / Unknown 01/24/2025 8:04 AM EDT 01/24/2025 11:07 AM EDT Keila Dobson ANP LAB BLOOD ORDERABLES Final Resul t Performing Organization Address [facility] Co de Phone Number [facility] [address] [place] [phone] * (ABNORMAL) Lipid Panel, Standard (01/24/2025 8:04 AM EDT) Triglycerides 201(H) <150 mg/dL [facility] Comment:Desirable Triglyceri de: less than 150 mg/dLBorderline High Triglyceride 150-199 mg/dLHigh Triglyceride: 200-499 mg/dLVery High Triglyceride: greater than or equal to 5OO mg/dL Cholesterol 259(H) <200 mg/dL [facility] Comment:Desirable Cholestero l: less than 200 mg/dLBorderline High Cholesterol: 200-239 mg/dLHigh Cholesterol: greater than 239 mg/dL LDL Cholesterol Calculated 187(H) <100 mg/dL [facility] Comment:Desirable LDL: less than 100 mg/dLNear Optimal/Above Optimal LDL: 110- 129 mg/dLBorderline High LDL: 130-159 mg/dLHigh LDL: 160-189 mg/dLVery High LDL: greater than or equal to 190 mg/dL HDL Cholesterol 32(L) >40 mg/dL [facility] Comment:Desirable HDL: great er than 40 mg/dL Note: This HDL assay may give artificially low results in patients with liver disease. Blood Venous blood specimen / Unknown 01/24/2025 8:04 AM EDT 01/24/2025 11:07 AM EDT us Keila Dobson ANP LAB BLOOD ORDERABLES Final Resul t Performing Organization Address [facility]/ZIP Co de Phone Number [facility] [address] [place] [phone] * (ABNORMAL) Comprehensive Metabolic Panel (01/24/2025 8:04 AM EDT) Sodium 140 135 - 145 mmol/L [facility] Potassium 4.6 3.3 - 5.1 mmol/L [facility] Chloride 105 96 - 108 mmol/L [facility] Carbon Dioxide 26 22 - 29 mmol/L [facility] Anion Gap 14 12 - 20 [facility] Urea Nitrogen (BUN) 12 9 - 16 mg/dL [facility] Creatinine, Serum 0.85 0.5 - 1.4 mg/dL [facility] Estimated Glomerular Filt Rate >60 [facility] Comment:Chronic Kidney Disea se: Estimated GFR < 60 mL/min/[id number] Kidney Disease: Estimated GFR < 15 mL/min/1.73m2 Glucose 125(H) 60 - 115 mg/dL [facility] Calcium 9.9 8.4 - 10.2 mg/dL [facility] Bilirubin, Total 0.5 0.0 - 1.0 mg/dL [facility] Aspartate Amino Transferase 75(H) 5 - 37 U/L [facility] Alanine Aminotransferase 48(H) 0 - 40 U/L [facility] Total Protein 7.7 6.5 - 8.0 g/dL [facility] Albumin Level 4.3 3.5 - 5.0 g/dL [facility] Alkaline Phosphatase 106 39 - 117 U/L [facility] Blood Venous blood specimen / Unknown 01/24/2025 8:04 AM EDT 01/24/2025 11:07 AM EDT [facility] LAB BLOOD ORDERABLES Final Resul t [facility] [address] [place] [phone] from Last 3 Months Insurance [address] [address] [facility] PARTIAL [facility] DENT[facility] - [facility] PARTIAL (MEDICAID) [id number] [address] [address] [address] Care Teams Stud Sheep Farmer Relationship Specialty Start Date End Date Keila Dobson ANP [address] [place] [phone] PCP - General Family Medicine 06/18/21
[2025-03-26] MEDS: gadobutroL 7.5 ML VIAL IVPUSH (16:51)
== END 2025-03-26 15:59 | disposition home or self-care (01) ==
LOC: HO.MRI 15:58
PROVIDERS: PCP Nurse Practitioner Primary Care; Visit Provider Nurse Practitioner Primary Care
DX: Q61.02 Congenital multiple renal cysts (principal)
CPT/HCPCS: 74183; A9585

== ENCOUNTER 2025-04-14 07:59 | Outpatient (REF) | payer OTHER, SELFPAY ==
--- OUTSIDE RECORDS SUMMARY | 2025-04-14 08:06 | XMS_ITS | Clinical Summary ---
Author Organization [employer] Address [address] [place] [address] Care Team Providers Care Bioengineer Name Role Phone SalomeKeila Primary Care Provider [phone] Allergies Active Allergy Reactions Criticality Noted Date [...] stopping. EKG Interpretation Rate: 70 Rhythm: NSR [place]: Normal Minor inferior repolarization disturbance, aspecific change [...] Encounters Date Type Department Care Team Description 03/31/2025 10:00 AM EDT Office Visit [facility] [place] [address] Keila Dobson ANP Smokes cigarettes (Primary Dx); Benign essential HTN; Transaminitis; Dyslipidemia; IPMN (intraductal papillary mucinous neoplasm); Medial epicondylitis of left elbow 03/31/2025 Results Follow-Up [facility] [place] [address] Keila Dobson ANP MR Abdomen w/ and w/o Contrast 03/31/2025 Travel 03/30/2025 Telephone [facility] [place] [address] Sarai Weinberg MA chart prep 03/29/2025 Telephone [facility] [place] [address] Keila Dobson ANP insurance 03/26/2025 Orders Only [facility] [place] [place] [address] Keila Dobson ANP 03/24/2025 Travel 03/07/2025 Results Follow-Up [facility] [place] [address] Keila Dobson ANP US Abdomen Complete 02/24/2025 1:00 PM EDT Immunization [facility] [place] [address] Tika Dubon, FLORINDA Encounter for immunization 02/24/2025 Travel 02/17/2025 Telephone [facility] [place] [address] Keila Dobson ANP Appointment Confirmation 02/17/2025 Travel 02/15/2025 Travel 01/28/2025 Orders Only [facility] External Provider, [facility] 01/27/2025 1:00 PM EDT Clinical Support [facility] [place] [address] Ema Gibbs, RN Encounter for immunization 01/26/2025 Telephone [facility] [address] [facility], [place], [place] [phone] Ema Sims, RN Results 01/14/2025 Telephone [facility] [address] [facility] [place] [address] Keila Dobson ANP Lab Orders from Last 3 Months Immunizations Immunization Administration [...] Date Smoking Tobacco: Every Day Cigarettes 0.5 38.5 Started: 1986 Smokeless Tobacco: Never Tobacco Cessation:Ready [...] Sign Reading Time Taken Comments Blood Pressure 160/90 03/31/2025 9:54 AM EDT Pulse 71 03/31/2025 9:54 AM EDT Temperature 36.8 C (98.2 F) 12/28/2024 10:11 AM EDT Respiratory Rate 16 03/31/2025 9:54 AM EDT Oxygen Saturation 98% 03/31/2025 9:54 AM EDT Inhaled Oxygen Concentration - - Weight 69.4 kg (153 lb) 03/31/2025 9:54 AM EDT Height 167.6 cm (5' 6 ) 03/31/2025 9:54 AM EDT Body Mass Index 24.69 03/31/2025 9:54 AM EDT Plan of Treatment Upcoming Encounters Date Type Department Care Team (Late st Contact Info) Description 06/10/2025 11:15 AM EDT Telemedicine [facility] [address] [place] [address] Keila Dobson ANP [address] [place] [address] 09/06/2025 3:00 PM EST Office Visit [facility] [address] [place] [address] Marli Smyth Health Maintenance Due Date Last [...] Screening 09/20/2025 09/20/2024 SDOH Screening 12/28/2025 12/28/2024 Diabetes: Hemoglobin A1C 01/24/2026 01/24/2025, 0605/2024 Disability Screening 03/31/2026 03/31/2025 Tobacco Screening 03/31/2026 03/31/2025 Colonoscopy 09/03/2029 Colorectal Cancer Screening 09/03/2029 Lipid [...] Procedure Name Priority Date/Time Associated Diagnosis Comments MR ABDOMEN W AND WO CONTRAST Routine 03/26/2025 3:55 PM EDT US ABDOMEN COMPLETE Routine 03/07/2025 1 0:42 [...] Recently Relevant to Health Maintenance Results * MR Abdomen w/ and w/o Contrast (03/26/2025 3:55 PM EDT) Anatomical Region Laterality Modality Abdomen Magnetic Resonan ce 03/26/2025 3:55 PM EDT Narrative 03/28/2025 8:46 AM EDT [address] [address] Magnetic Resonance Report Signed Patient: Braxton Moeller MR#: [id number] 3 : 1965 Acct:[id number] Age/Sex: 60 / M ADM Date: 03/26/25 Loc: HO.MRI Attending Dr: Keila Dobson NP Ordering Physician: KEILA DOBSON NP Date of Service: 03/26/25 Procedure(s): MR abdomen wo/w con Accession Number(s): [id number] cc: KEILA DOBSON NP EXAMINATION: MR ABDOMEN WITHOUT THEN WITH IV CONTRAST HISTORY: MULTIPLE RENAL CYSTS COMPARISON: Correlation is made with an abdominal ultrasound dated 03/07/2025. TECHNIQUE: Axial in and out of phase T1-weighted gradient echo, axial diffusion weighted, and axial and coronal HASTE T2 with fat saturation images were obtained through the abdomen. Subsequently, fat suppressed axial and coronal T1-weighted images were obtained after the intravenous administration of 6.5 mL Gadavist. FINDINGS: Liver: There is no loss of signal intensity in the liver on opposed phase imaging to suggest steatosis. There is no enhancing liver mass. The hepatic and portal veins are patent. There is no intra- or extrahepatic biliary dilatation. Gallbladder: No gallstones are identified. Spleen: The spleen is unremarkable. Pancreas: There is a tiny 4 mm T2 hyperintense focus in the pancreatic neck/body does not enhance may represent a tiny IPMN. The pancreatic duct is normal in caliber. Adrenals: The adrenal glands are unremarkable. Kidneys: There is a 3.5 x 3.2 x 3.6 cm simple cyst at the upper pole of the right kidney and a 2.2 x 1.6 x 1.8 cm simple cyst in the interpolar region. On the left, there is a 1.5 x 1.2 x 1.8 cm cyst at the upper pole which demonstrates a fluid/fluid level. The dependent fluid is T2 hypointense and T2 hyperintense consistent with proteinaceous or hemorrhagic content. There is no associated enhancement. There is no hydronephrosis. Lymph nodes: There is no retroperitoneal lymphadenopathy in the upper abdomen. Fluid: There is no ascites in the upper abdomen. Visualized bowel: The visualized bowels loops are unremarkable in appearance. Visualized bones: The visualized bones demonstrate normal marrow signal intensity. MR/MR abdomen wo/w con IMPRESSION: 1. There are 2 simple cysts in the right kidney. A single mildly complicated cyst is seen at the upper pole of the left kidney demonstrating a fluid/fluid level, consistent hemorrhagic or proteinaceous content. This represents a Bosniak II lesion and no additional follow-up is required. 2. 4 mm T2 hyperintense focus in the pancreatic neck/body which may represent a tiny IPMN. A follow-up examination in 12 months is recommended. Electronically signed by: Jose Bautista MD 03/28/2025 08:42 AM EDT RP Dictated By: Jose Bautista MD Signed By: <Electronically signed by Jose Bautista MD in OV> 03/28/25 0842 DD/ 1555 TD/TT: 03/26/25 1648 Chief Informatics Officer: Procedure Note Donotuseinterpreter, Image - 03/28/[address] [address] Magnetic Resonance Report Signed Patient: Braxton Moeller [facility]#: [id number] 3 : 1965Acct:[id number] Age/Sex: 60 / MADM Date: 03/26/25 Loc: HO.MRI Attending Dr: Keila Dobson NP Ordering Physician: KEILA DOBSON NP Date of Service: 03/26/25 Procedure(s): MR abdomen wo/w con Accession Number(s): [id number] cc: DOBSON,KEILA FILM AND VIDEO EDITOR EXAMINATION: MR ABDOMEN WITHOUT THEN WITH IV CONTRAST HISTORY: MULTIPLE RENAL CYSTS COMPARISON: Correlation is made with an abdominal ultrasound dated 03/07/2025. TECHNIQUE: Axial in and out of phase T1-weighted gradient echo, axial diffusion weighted, and axial and coronal HASTE T2 with fat saturation images were obtained through the abdomen. Subsequently, fat suppressed axial and coronal T1-weighted images were obtained after the intravenous administration of 6.5 mL Gadavist. FINDINGS: Liver: There is no loss of signal intensity in the liver on opposed phase imaging to suggest steatosis. There is no enhancing liver mass. The hepatic and portal veins are patent. There is no intra- or extrahepatic biliary dilatation. Gallbladder: No gallstones are identified. Spleen: The spleen is unremarkable. Pancreas: There is a tiny 4 mm T2 hyperintense focus in the pancreatic neck/body does not enhance may represent a tiny IPMN. The pancreatic duct is normal in caliber. Adrenals: The adrenal glands are unremarkable. Kidneys: There is a 3.5 x 3.2 x 3.6 cm simple cyst at the upper pole of the right kidney and a 2.2 x 1.6 x 1.8 cm simple cyst in the interpolar region. On the left, there is a 1.5 x 1.2 x 1.8 cm cyst at the upper pole which demonstrates a fluid/fluid level. The dependent fluid is T2 hypointense and T2 hyperintense consistent with proteinaceous or hemorrhagic content. There is no associated enhancement. There is no hydronephrosis. Lymph nodes: There is no retroperitoneal lymphadenopathy in the upper abdomen. Fluid: There is no ascites in the upper abdomen. Visualized bowel: The visualized bowels loops are unremarkable in appearance. Visualized bones: The visualized bones demonstrate normal marrow signal intensity. MR/MR abdomen wo/w con IMPRESSION: 1. There are 2 simple cysts in the right kidney. A single mildly complicated cyst is seen at the upper pole of the left kidney demonstrating a fluid/fluid level, consistent hemorrhagic or proteinaceous content. This represents a Bosniak II lesion and no additional follow-up is required. 2. 4 mm T2 hyperintense focus in the pancreatic neck/body which may represent a tiny IPMN. A follow-up examination in 12 months is recommended. Electronically signed by: Jose Bautista MD 03/28/2025 08:42 AM EDT RP Dictated By: Jose Bautista MD Signed By: <Electronically signed by Jose Bautista MD in OV> 03/28/25 0842 DD/ 1555 TD/TT: 03/26/25 1648 Chief Informatics Officer: us Keila Dobson ANP IMG MRI PROCEDURES Edited Result - Final * US Abdomen Complete (03/07/2025 10:42 AM EDT) Anatomical Region Laterality Modality Abdomen Ultrasound 03/07/2025 10:4 2 AM EDT Narrative 03/07/2025 10:43 AM EDT [address] [address] Ultrasound Report Signed Patient: Braxton Moeller MR#: [id number] 3 : 1965 Acct:[id number] Age/Sex: 60 / M ADM Date: 03/07/25 Loc: HO.US Attending Dr: Keila Dobson NP Ordering Physician: KEILA DOBSON NP Date of Service: 03/07/25 Procedure(s): US abdomen complete Accession Number(s): [id number] cc: KEILA DOBSON NP CLINICAL HISTORY: transaminitis [...] 03/07/25 1043 DD/ 1042 TD/TT: 03/07/25 1042 Chief Informatics Officer: Procedure Note Donotuseinterpreter, Image - 03/07/2025 [place] [address] Ultrasound Report Signed Patient: Braxton Moeller AMR#: [id number] 3 : 1965Acct:[id number] Age/Sex: 60 / MADM Date: 03/07/25 Loc: HO.US Attending Dr: Keila Dobson NP Ordering Physician: KEILA DOBSON NP Date of Service: 03/07/25 Procedure(s): US abdomen complete Accession Number(s): [id number] cc: KEILA DOBSON NP CLINICAL HISTORY: transaminitis [...] 03/07/25 1043 DD/ 1042 TD/TT: 03/07/25 1042 Chief Informatics Officer: [facility] Dobson [facility] US PROCEDURES Edited Result - Final * CT Lung Screening Low dose (01/28/2025 3:56 PM EDT) Anatomical Region Laterality Modality Lung Computed Tomogra phy 01/28/2025 3:56 PM EDT Narrative 01/28/2025 3:59 PM EDT [address] [address] [address] Scan Report Signed Patient: Braxton Moeller MR#: [id number] 3 : 1965 Acct:[id number] Age/Sex: 59 / M ADM Date: 01/28/25 Loc: .CT Attending Dr: Nikia Mclain PA-C Ordering Physician: Nikia Mclain PA-C Date of Service: 01/28/25 Procedure(s): CT lung screening Accession Number(s): [id number] cc: Nikia Mclain PA-C; KEILA DOBSON NP Report Number: [id number]: Total DLP = 49.00 mGy-cm CLINICAL HISTORY: F17.210 - Nicotine dependence, cigarettes, uncomplicated cigarettes, uncomplicated; 148 lbs, 1/2 ppd X 48 yrs; Additional Information:-148 lbs, 1/2 ppd X [address] lung cancer [...] Washington MD in OV> 01/28/25 1558 DD/ 155 TD/TT: 01/28/25 155 Chief Informatics Officer: Procedure Note Donotuseinterpreter, Image - 01/28/[address] [address] [address] Scan Report Signed Patient: Braxton Moeller [facility]#: [id number] 3 : 1965Acct:[id number] Age/Sex: 59 / MADM Date: 01/28/25 Loc: HO.CT Attending Dr: Nikia Mclain PA-C Ordering Physician: Nikia Mclain PA-C Date of Service: 01/28/25 Procedure(s): CT lung screening Accession Number(s): [id number] cc: Nikia Mclain PA-C; KEILA DOBSON NP Report Number: [id number]: Total DLP = 49.00 mGy-cm CLINICAL HISTORY: [...] signed by Pradip Washington MD in OV> 01/28/258 DD/ 55 TD/TT: 01/28/251555 Chief Informatics Officer: [facility] External Provider IMG CT PROCEDURES Final Result * Hepatitis C Antibody with Reflex to HCV, RNA, Quantitative, Real-Time PCR (01/24/2025 8:04 AM EDT) Hepatitis C Antibody Nonreactive Nonreactive [facility] Comment:Antibodies to HCV no t detected; does not exclude early acuteHCV infection. Blood Venous blood specimen / Unknown 01/24/2025 8:04 AM EDT 01/24/2025 11:07 AM EDT Keila Dobson [facility] LAB BLOOD ORDERABLES Final Resul t [facility] [address] [place] [phone] * Hepatitis B surface antigen, EIA (01/24/2025 8:04 AM EDT) Hepatitis B Surface Ag Negative Negative [facility] Blood Venous blood specimen / Unknown 01/24/2025 8:04 AM EDT 01/24/2025 11:07 AM EDT Keila Dobson ANP LAB BLOOD ORDERABLES Final Resul t Performing Organization Address [facility] Co de Phone Number [facility] [address] [place] [phone] * Hepatitis B Core Antibody, Total (01/24/2025 8:04 AM EDT) Hepatitis B Core Antibody Nonreactive Nonreactive [facility] Blood Venous blood specimen / Unknown 01/24/2025 8:04 AM EDT 01/24/2025 11:07 AM EDT Keila Dobson ANP LAB BLOOD ORDERABLES Final Resul t Performing Organization Address [facility] de Phone Number [facility] [address] [place] [phone] * Hepatitis B Surface Antibody, Qualitative (01/24/2025 8:04 AM EDT) ~Hepatitis B Surface Antibody NONREACTIVE Nonreactive [facility] Comment:Nonreactive: < 8.00 mIU/mL Blood Venous blood specimen / Unknown 01/24/2025 8:04 AM EDT 01/24/2025 11:07 AM EDT Keila Dobson ANP LAB BLOOD ORDERABLES Final Resul t Performing Organization Address [facility] Co de Phone Number [facility] [address] [place] [phone] * (ABNORMAL) Hemoglobin A1c (01/24/2025 8:04 AM EDT) Hemoglobin A1c 6.1(H) <6.0 % [facility] Comment:Hemoglobin A1C Refer ence Range Adults: 4.8 - 6.0 % Non diabetic: < 6.0 % Goal: < 7.0 %Additional Action Suggested: > 8.0 %Note: Hemoglobin A1c results are invalid for patients with abnormal amounts of HbF. Blood transfusions may impact the HbA1c concentration in the patient sample. Estimated Average Glucose 128 mg/dL [facility] Comment:eAG = Estimated ave rage glucose which is %A1C expressed asaverage glucose, using the formula of the A0A-QczdeqsOpszixv Glucose study (ADAG), Diabetes Care, Vol.31,#8,May. 2007 Blood Venous blood specimen / Unknown 01/24/2025 8:04 AM EDT 01/24/2025 11:07 AM EDT Keila Dobson ANP LAB BLOOD ORDERABLES Final Resul t Performing Organization Address [facility] de Phone Number [facility] [address] [place] [phone] * (ABNORMAL) Lipid Panel, Standard (01/24/2025 8:04 AM EDT) Triglycerides 201(H) <150 mg/dL [facility] Comment:Desirable Triglyceri de: less than 150 mg/dLBorderline High Triglyceride 150-199 mg/dLHigh Triglyceride: 200-499 mg/dLVery High Triglyceride: greater than or equal to 5OO mg/dL Cholesterol 259(H) <200 mg/dL [facility] Comment:Desirable Cholestero l: less than 200 mg/dLBorderline High Cholesterol: 200-239 mg/dLHigh Cholesterol: greater than 239 mg/dL LDL Cholesterol Calculated 187(H) <100 mg/dL [facility] Comment:Desirable LDL: less than 100 mg/dLNear Optimal/Above Optimal LDL: 110- 129 mg/dLBorderline High LDL: 130-159 mg/dLHigh LDL: 160-189 mg/dLVery High LDL: greater than or equal to 190 mg/dL HDL Cholesterol 32(L) >40 mg/dL [facility] Comment:Desirable HDL: great er than 40 mg/dL Note: This HDL assay may give artificially low results in patients with liver disease. Blood Venous blood specimen / Unknown 01/24/2025 8:04 AM EDT 01/24/2025 11:07 AM EDT us Keila Dobson ANP LAB BLOOD ORDERABLES Final Resul t Performing Organization Address [facility] Co de Phone Number [facility] [address] [place] [address] [phone] * (ABNORMAL) Comprehensive Metabolic Panel (01/24/2025 8:04 AM EDT) Sodium 140 135 - 145 mmol/L [facility] Potassium 4.6 3.3 - 5.1 mmol/L [facility] Chloride 105 96 - 108 mmol/L [facility] Carbon Dioxide 26 22 - 29 mmol/L [facility] Anion Gap 14 12 - 20 [facility] Urea Nitrogen (BUN) 12 9 - 16 mg/dL [facility] Creatinine, Serum 0.85 0.5 - 1.4 mg/dL [facility] Estimated Glomerular Filt Rate >60 [facility] Comment:Chronic Kidney Disea se: Estimated GFR < 60 mL/min/1.27b9Otnabe Kidney Disease: Estimated GFR < 15 mL/min/1.73m2 Glucose 125(H) 60 - 115 mg/dL [facility] Calcium 9.9 8.4 - 10.2 mg/dL [facility] Bilirubin, Total 0.5 0.0 - 1.0 mg/dL [facility] Aspartate Amino Transferase 75(H) 5 - 37 U/L [facility] Alanine Aminotransferase 48(H) 0 - 40 U/L [facility] Total Protein 7.7 6.5 - 8.0 g/dL [facility] Albumin Level 4.3 3.5 - 5.0 g/dL [facility] Alkaline Phosphatase 106 39 - 117 U/L [facility] Blood Venous blood specimen / Unknown 01/24/2025 8:04 AM EDT 01/24/2025 11:07 AM EDT Keila [facility] LAB BLOOD ORDERABLES Final Resul t [facility] [address] [place] [phone] from Last 3 Months Insurance [id number] [address] [facility]SN PARTIAL [facility] [id number] [address] DENTAL - HSN PARTIAL (MEDICAID) [address] Care Teams Bioengineer Relationship Specialty Start Date End Date Keila Dobson ANP [address] [place] [phone] PCP - General Family Medicine 06/18/21
[2025-04-14 11:54] LABS: Alanine Aminotransferase 40 U/L (0-40); Albumin Level 4.3 g/dL (3.5-5.0); Alkaline Phosphatase 115 U/L (39-117); Anion Gap 12 (12-20); Aspartate Amino Transferase 72 U/L (5-37); Bilirubin Direct 0.2 mg/dL (0.0-0.5); Bilirubin Total 0.6 mg/dL (0.0-1.0); Blood Urea Nitrogen 14 mg/dL (9-16); Calcium 9.6 mg/dL (8.4-10.2); Carbon Dioxide 26 mmol/L (22-29); Chloride 104 mmol/L (96-108); Cholesterol 212 mg/dL (<200); Estimated Glomerular Filt Rate > 60; Glucose Random 116 mg/dL (60-115); HDL Cholesterol 32 mg/dL (>40); LDL Cholesterol Calculated 146 mg/dL (<100); Potassium 4.3 mmol/L (3.3-5.1); Sodium 138 mmol/L (135-145); Total Protein 7.5 g/dL (6.5-8.0); Triglycerides 172 mg/dL (<150)
== END 2025-04-14 08:00 | disposition home or self-care (01) ==
LOC: HO.HHCL 07:59
PROVIDERS: PCP Nurse Practitioner Primary Care; Visit Provider Nurse Practitioner Primary Care
DX: E78.5 Hyperlipidemia, unspecified (principal); R74.01 Elevation of levels of liver transaminase levels; I10 Essential (primary) hypertension; M25.511 Pain in right shoulder
CPT/HCPCS: 36415; 80048; 80061; 80076; 99212

== ENCOUNTER 2025-04-14 10:37 | Outpatient (AMB) | payer OTHER, SELFPAY ==
[2025-04-14 11:09] VITALS: BMI 25.2
--- NOTE | 2025-04-14 11:09 | MHC.OFFVIS ---
Vital Signs 04/14/25 11:09 Height 5 ft 6 in Weight 156 lb BMI 25.2 Intake Visit Reasons: OV-RT shoulder 10/29/24 Intake Note: Braxton is a 60 year old male who presents today postoperatively after undergoing right shoulder arthroscopic surgery on 10/29/24. He reports mild intermittent discomfort in his shoulder. He does not take any medicines for his discomfort. He continues with his home stretching program. doing good Mechanical Systems Designer Required: Yes Mechanical Systems Designer Language: Charhouse Worker Services: Mechanical Systems Designer Offered & Declined Allergies oxycodone (From Percocet) Adverse Reaction (Intermediate, Verified 04/14/25 11:09) fast heartbeat Medication List - Last Reconciled 04/14/25 by Volodymyr Conrad MD albuterol sulfate 90 mcg/actuation 2 inhalations inhalation Q4-6H PRN aspirin 81 mg PO DAILY atorvastatin 20 mg PO DAILY famotidine (Pepcid) 20 mg PO BEDTIME fluticasone propionate 110 mcg/actuation (Flovent HFA) 1 puff inhalation Q12H gabapentin 100 mg PO TID losartan 100 mg PO DAILY montelukast (Singulair) 10 mg PO QPM omeprazole 40 mg PO DAILY PFSH Medical History (Updated 02/04/25 @ 08:32 by Nikia Mclain PA-C) Tubular adenoma of colon Nicotine dependence, cigarettes, uncomplicated History of Helicobacter pylori infection Bleeding hemorrhoids HTN (hypertension) Asthma IBS (irritable bowel syndrome) GERD (gastroesophageal reflux disease) Surgical History History of shoulder surgery History of colonoscopy History of esophagogastroduodenoscopy (EGD) Family History Father Asthma High blood pressure Mother Asthma High blood pressure Social History (Updated 01/28/25 @ 10:57 by Nikia Mclani PA-C) Household Members Other:: and niece Are you a primary account executive healthcare to a significant other at home: No Do you presently have visiting nurse or other home services: No Alcohol intake: current Patient Tobacco Use Status: Current everyday Tobacco user Tobacco use type: Cigarette Cigarettes Per Day: 10 Years Smoked: (onset 22yo, 1/2-3/4ppd x 39yrs, 20pyh) Physical Exam Vital Signs: BMI result Body Mass Index 25.2 Const Other: Well-nourished well-developed very friendly male awake alert and oriented x3 in no acute distress Extrem Other: Right shoulder examination shows that the surgical incisions are well healed, no erythema, full range of motion when compared to his left shoulder, 5/5 strength with supraspinatus testing, minimal discomfort with range of motion, no instability Assessment & Plan Assessment & Plan (1) Right shoulder pain: Code(s): M25.511 - Pain in right shoulder Category: Medical Plan Mr. Moeller continues to do very well after undergoing right shoulder arthroscopic surgery on 10/29/2024. He will continue with his range of motion exercises to prevent stiffness. The do's and don'ts of lifting were discussed at length with the patient. He will follow up with me on an as-needed basis should his symptoms worsen in any way. Feel free to call me at any time should questions regarding his orthopedic management arise. I spent 22 minutes in reviewing the patient's records and imaging studies, seeing the patient and documenting in the medical record. Coding Level of Care Code Est Pt Level 3 (11198) Complex EM visit Add On G2211 Diagnoses Right shoulder pain M25.511
== END 2025-04-14 11:47 | disposition home or self-care (01) ==
LOC: HO.HOS 10:37
PROVIDERS: PCP Nurse Practitioner Primary Care; Visit Provider Orthopaedic Surgery
DX: M25.511 Pain in right shoulder (principal)
CPT/HCPCS: 99213

== ENCOUNTER 2025-07-11 14:52 | Outpatient (AMB) | payer OTHER, SELFPAY ==
--- NOTE | 2025-07-11 14:54 | A.OFFVIS_ITS ---
Vital Signs 07/11/25 15:04 Height 5 ft 6 in Weight 149 lb BMI 24.0 BP 118/72 Blood Pressure Location Rt brachial Position Sitting Pulse 82 Pulse Source Pulse Oximeter Pulse Oximetry (%) 96 Oxygen Delivery Method Room Air Intake Visit Reasons: 6 months f/u Intake Note: ESTABLISHED PATIENT for mgmt of GERD. Hx of H Pylori. CC: Pt denies any GI changes or new sx since last visit. Pt confirms that he is taking Rx as instructed and without complication. Patternmaker Bench Required: Yes Patternmaker Bench Services: Patternmaker Bench Offered & Declined Accompanied by: Spouse Allergies oxycodone (From Percocet) Adverse Reaction (Intermediate, Verified 07/11/25 14:55) fast heartbeat HPI HPI 6 months f/u: Details: LAST VISIT: Tubular adenoma History of Helicobacter pylori infection GERD (gastroesophageal reflux disease) Constipation Plan Continue omeprazole daily, famotidine at bedtime is needed. Avoid dietary triggers and in late night snacking. Staying upright for minimum 3 hours after meals discussed with patient. If positive for H pylori and treat. Follow-up in 6 months, sooner on as needed basis. Patient is agreeable to plan of care and verbalizes understanding of instructions. He was given the opportunity to ask questions and all questions answered. ? TODAY'S VISIT: Patient is here today for follow-up. Patient is accompanied by his . Patient reports to be feeling better. Currently is taking famotidine at bedtime and omeprazole in the morning. His symptoms of acid reflux are suppressed with the nurse part. Occasional postprandial loose stools and occasional rectal discomfort. History of hemorrhoids. Denies melena, hematochezia, unintentional weight loss or ribbon like stools. Patient denies dyspepsia, dysphagia or odynophagia. Patient denies any other GI concerning symptoms [facility] Medical History Tubular adenoma of colon Nicotine dependence, cigarettes, uncomplicated History of Helicobacter pylori infection Bleeding hemorrhoids HTN (hypertension) Asthma IBS (irritable bowel syndrome) GERD (gastroesophageal reflux disease) Surgical History History of shoulder surgery History of colonoscopy History of esophagogastroduodenoscopy (EGD) Family History Father Asthma High blood pressure Mother Asthma High blood pressure Social History Household Members Other:: and niece Are you a primary director critical care to a significant other at home: No Do you presently have visiting nurse or other home services: No Alcohol intake: current Patient Tobacco Use Status: Current everyday Tobacco user Tobacco use type: Cigarette Cigarettes Per Day: 10 Years Smoked: (onset 22yo, 1/2-3/4ppd x 37yrs, 20pyh) Review of Systems Const Denies weight gain and Denies weight loss ENT Reports no additional complaints, Denies dysphagia and Denies odynophagia Card Reports no additional complaints Resp Reports no additional complaints GI Denies abdominal pain, Denies belching, Denies melena, Denies bloating, Denies change in bowel habits, Denies dysphagia, Denies excessive flatus, Denies dyspepsia, Denies heartburn, Denies diarrhea, Denies loose stools, Denies nausea, Denies odynophagia and Denies vomiting Reports no additional complaints Musc Reports no additional complaints Neuro Reports no additional complaints Psych Reports no additional complaints Endo Reports no additional complaints Physical Exam Vital Signs: Last Vital Signs Pulse 82 07/11/25 15:04 BP 118/72 07/11/25 15:04 Pulse Ox 96 07/11/25 15:04 Oxygen Delivery Method Room Air 07/11/25 15:04 BMI result Body Mass Index 24.0 Const General: healthy appearing, no acute distress and well developed Nutritional Appearance: well nourished Orientation/consciousness: patient oriented x3 Resp Effort & Inspection: normal respiratory effort, able to speak in complete sentences, no tracheal deviation and symmetric chest movement Auscultation: clear to auscultation bilaterally Cardio Rate: regular rate GI Inspection: Yes normal to inspection, No distended and Yes obesity Palpation (GI): Soft to palpation, not firm, nontender and No hepatosplenomegaly present Auscultation: normal bowel sounds General: Yes no CVA tenderness Back/Spine/Pelvis Back: no CVA tenderness Skin General skin exam: elasticity normal, turgor normal and dry skin Neuro General: patient oriented x3 Psych Appearance: grossly normal Mental Status: mental status grossly normal Assessment & Plan Assessment & Plan (1) History of Helicobacter pylori infection: Code(s): Z86.19 - Personal history of other infectious and parasitic diseases Category: Medical (2) Hemorrhoid: Code(s): K64.9 - Unspecified hemorrhoids Category: Medical Qualifiers: Hemorrhoid type: second degree Qualified Code(s): K64.1 - Second degree hemorrhoids (3) Bleeding hemorrhoids: Code(s): K64.9 - Unspecified hemorrhoids Category: Medical (4) GERD (gastroesophageal reflux disease): Code(s): K21.9 - Gastro-esophageal reflux disease without esophagitis Qualifiers: Esophagitis presence: esophagitis presence not specified Qualified Code(s): K21.9 - Gastro-esophageal reflux disease without esophagitis Plan Continue PPI and H2 henny. Avoid dietary triggers in late SI can. Staying upright for minimum 3 hours after meals discussed with patient. Patient can start taking Citrucel to help him bulk stools. May use Proctosol for hemorrhoids. Patient will follow-up in 1 year. He will call us if you have any GI concerning symptoms. Patient is agreeable to this plan and verbalizes unde rstanding of instructions. She was given the opportunity to ask questions and all questions answered. Thank you for allowing me to participate in his care Medications: New methylcellulose (laxative) (Citrucel) take it with full glass of water 500 mg PO DAILY 90 tabs 2RF K59.00 - Cons tipation, unspecified hydrocortisone 2.5% (Proctosol HC) 1 appl NM BID-QID PRN 30 grams 2RF hemorrhoids K64.9 - Unspecified hemorrhoids hydrocortisone acetate 30 mg NM BEDTIME 12 ea 0RF Refilled famotidine (Pepcid) 20 mg PO BEDTIME 90 tabs 3RF K21.9 - Gastro-esophageal reflux disease without esophagitis omeprazole 40 mg PO DAILY 90 caps 3RF K21.9 - Gastro-esophageal reflux disease without esophagitis Coding Level of Care Code Est Pt Level 3 (95851) Diagnoses History of Helicobacter pylori infection Z86.19 Grade II hemorrhoids K64.1 Hemorrhoid type: second degree Bleeding hemorrhoids K64.9 Gastroesophageal reflux disease, unspecified whether esophagitis present K21.9 Esophagitis presence: esophagitis presence not specified Time Spent (min) 25 Comment 15 minutes spent with patient and additional 10 minutes spent reviewing his records
[2025-07-11 15:04] VITALS: BP 118/72; PULSE 82; O2SAT 96; BMI 24.0
== END 2025-07-11 15:58 | disposition home or self-care (01) ==
LOC: HO.HGI 14:53
PROVIDERS: PCP Nurse Practitioner Primary Care; Visit Provider Nurse Practitioner Family
DX: Z86.19 Personal history of other infectious and parasitic diseases (principal); K64.1 Second degree hemorrhoids; K64.9 Unspecified hemorrhoids; K21.9 Gastro-esophageal reflux disease without esophagitis
CPT/HCPCS: 99213

== ENCOUNTER → 2025-07-11 14:52 | Outpatient (BNVA) | payer OTHER, SELFPAY | PROVIDERS: PCP Nurse Practitioner Primary Care; Visit Provider Nurse Practitioner Family | DX: K21.9 Gastro-esophageal reflux disease without esophagitis (principal); Z86.19 Personal history of other infectious and parasitic diseases; K64.1 Second degree hemorrhoids; K64.9 Unspecified hemorrhoids; F17.210 Nicotine dependence, cigarettes, uncomplicated | CPT/HCPCS: 99212 ==

== ENCOUNTER 2025-08-18 08:00 | Outpatient (REF) | payer OTHER, SELFPAY ==
--- OUTSIDE RECORDS SUMMARY | 2025-08-18 08:11 | XMS_ITS | Clinical Summary ---
Author Organization [employer] Address [address] [place] [address] Care Team Providers Care [employer] Bottom Maker Name Role Phone Marianna Mcmahon Primary Care Provider [phone] Allergies Active Allergy Reactions Criticality Noted Date [...] time. 28 patch 1 06/17/20 24 Active cetirizine (ZyrTEC) 10 MG tabletIndication s:Chronic cough Take 1 tab afternoon 30 tablet 2 06/17/20 24 Active nicotine (Nicoderm CQ) 14 MG/24HR patchIndications :Cigarette nicotine dependence without complication Place 1 patch on the skin 1 (one) time each day at the same time. 42 patch 09/20/20 24 Active nicotine polacrilex (Nicotine Mini) 2 MG lozengeIndicatio ns:Smokes cigarettes Dissolve in mouth in place of cigarette every 1-2 hours 100 lozenge 11 06/10/20 25 Active atorvastatin (Lipitor) 40 MG tabletIndication s:Dyslipidemia Take 1 tablet (40 mg) by mouth Once per day. 90 tablet 1 06/10/20 25 026 Active losartan (Cozaar) 100 MG tabletIndication s:Benign essential HTN Take 1 tablet (100 mg) by mouth Once per day. 90 tablet 1 06/10/20 25 Active Aspirin Low Dose 81 MG EC tabletIndication s:Cardiovascular event risk TAKE 1 TABLET BY MOUTH EVERY DAY; START november 03 2024. 90 tablet 1 07/22/20 Active hydroCHLOROthiaz svetlana 12.5 MG tabletIndication s:Benign essential HTN Take 1 tablet (12.5 mg) by mouth Once per day. 90 tablet 1 08/11/20 25 026 Active Blood Pressure kitIndications:B enign essential HTN 1 each 2 times daily. 1 kit 08/11/20 25 026 Active varenicline (Chantix) 0.5 MG tabletIndication s:Smokes cigarettes Take 0.5 mg PO once daily on Days 1 through 3, then 0.5 mg PO twice daily on Days 4 through 7, then start 1mg twice daily prescription; take with full glass of water 11 tablet 08/11/20 Active varenicline (Chantix) 1 MG tabletIndication s:Smokes cigarettes Take 1 tablet (1 mg) by mouth 2 times daily. Take with full glass of water. Start after initial 7d rx. 60 tablet 2 08/11/20 Active aspirin (Aspirin Adult Low Dose) 81 MG EC tabletIndication s:Cardiovascular event risk Take 1 tablet (81 mg) by mouth Once per day. Do not start before November 03, 2024. 90 tablet 1 11/03/19 25 025 Discontinued Active Problems Problem Noted Date [...] stopping. EKG Interpretation Rate: 70 Rhythm: NSR [place]: Normal Minor inferior repolarization disturbance, aspecific change [...] Encounters Date Type Department Care Team Description 08/11/2025 2:00 PM EDT Office Visit [address] [address] Marianna Mcmahon ANP Benign essential HTN (Primary Dx); Encounter for immunization; Smokes cigarettes; Dyslipidemia; Severe hypertension 08/11/2025 Travel 08/09/2025 Telephone [facility] [address] [place], [place] [phone] Marianna Mcmahon ANP chart prep 08/08/2025 Travel 07/21/2025 Refill [facility] [address] [place], [place] [phone] Marianna Mcmahon ANP Cardiovascular event risk 07/18/[address] [address] Cristiane Olvera RN Appointment Request 07/07/2025 Telephone [facility] [address] [place] [address] Jessica Wilson 06/10/2025 11:15 AM EDT Telemedicine [facility] [address] [place] [address] Marianna Mcmahon ANP Smokes cigarettes (Primary Dx); Dyslipidemia; Benign essential HTN; Encounter for smoking cessation counseling 06/10/2025 Travel 06/09/2025 Telephone [facility] [address] [place] [address] Marianna Mcmahon ANP chartprep 06/03/2025 Travel from Last 3 Months Immunizations Immunization Administration Dates Next Due Hep B, adult 08/11/2025,02/24/2025,01/27/2025 Influenza Injectable Quadriv alant Preservative Free IIV4 MDCK 06/17/2019 Influenza injectable quadriv alent preservative free 08/07/2022,09/22/2020 Influenza, Injectable, MDCK, preservative free 06/24/2024 Influenza, seasonal, injecta ble, preservative free 08/11/2025 Moderna Covid-19 Vaccine 12+ 02/19/2021,01/23/20 Moderna Covid-19 Vaccine 6+ Bivalent 12/19/2022 Pneumococcal Conjugate PCV 20 09/20/2024 Tdap 06/18/2021 Zoster, Recombinant 02/19/2023,12/19/2022 Family History Medical History Relation Name Comments Diabetes Father Hypertension Father Hypertension Mother Diabetes Sister Hypertension Sister Relation Name Status Comments Father Mother Sister Social History Tobacco Use Types Packs/Day Years Used Date Smoking Tobacco: Every Day Cigarettes 0.5 38.8 Started: 1986 Smokeless Tobacco: Never Tobacco Cessation:Ready to Q uit: Not Asked; Counseling Given: Not Answered Alcohol Answer Date Recorded How often do you have a drink containing alcohol ? 3 09/20/2024 How many drinks containing a lcohol do you have on a typical day when you are drinking? 1 09/20/2024 Frequency of Binge Drinking Not on file 11/2023 Depression Answer Date Recorded Patient Health Questionnaire-9 Score 2 08/11/2025 Patient Health Questionnaire-9 Score 2 08/11/2025 Last PHQ-9: Questionnaire Data Not on file 1 Housing Stability Answer Date Recorded What is [...] Answer Date Recorded Patient Health Questionnaire-2 Score 0 08/11/2025 Internet Access Answer Date Recorded Internet Access [...] Sign Reading Time Taken Comments Blood Pressure 170/100 08/11/2025 1:50 PM EDT Pulse 73 08/11/2025 1:50 PM EDT Temperature 36.4 C (97.5 F) 08/11/2025 1:50 PM EDT Respiratory Rate 12 08/11/2025 1:50 PM EDT Oxygen Saturation 98% 08/11/2025 1:50 PM EDT Inhaled Oxygen Concentration - - Weight 69.4 kg (153 lb) 08/11/2025 1:50 PM EDT Height 167.6 cm (5' 6 ) 08/11/2025 1:50 PM EDT Body Mass Index 24.69 08/11/2025 1:50 PM EDT Plan of Treatment Upcoming Encounters Date Type Department Care Team (Late st Contact Info) Description 09/07/2025 2:15 PM EST Office Visit [facility] [address] [place] [address] Jessica Wilson 09/12/2025 2:15 PM EST Office Visit [facility] [address] [place] [address] Marianna Mcmahon ANP [address] [place] [address] Health Maintenance Due Date Last Done Comments CT Colonography 1967 Dental X-Ray: Full Mouth 1967 FIT DNA/Cologuard 1967 FIT 1967 FOBT 1967 HIV Screening 1967 Sigmoidoscopy 1967 Dental Oral Exam 03/08/2025 09/07/2024, 01/2018, 12/01/2015, Additional history exists Dental Prophylaxis 03/08/2025 09/07/2024, 0 06/02/2018, 06/03/2016, Additional history exists Dental X-Ray: Bitewings 09/08/2025 09/07/20 24, 01/21/2018, 12/01/2015, Additional history exists Alcohol/Substance Use Screening 09/20/2025 09/20/2024 SDOH Screening 12/28/2025 12/28/2024 Diabetes: Hemoglobin A1C 01/24/2026 01/24/2025, 06/1 05/2024 Disability Screening 03/31/2026 03/31/2025 Depression Screening 08/11/2026 08/11/2025, 08/11/20 25 Tobacco Screening 08/11/2026 08/11/2025 Colonoscopy 09/03/2029 Colorectal Cancer Screening 09/03/2029 Lipid Panel 04/14/2030 04/14/2025, 04/0 04/2025, 04/06/2024 DTaP/Tdap/Td Vaccines (2 - Td or Tdap) 06/18/2031 06/18/2021 RSV Patients and Patients Aged 60 years or older (1 - 1-dose 75+ series) 2042 Zoster Vaccines Completed 02/19/2023, 12/19/2022 COVID-19 Vaccine Completed 08/03/2024, 11/2022, 10/17/2021, Additional history exists Pneumococcal Vaccine: 50+ Years Completed 09/20/2024 Hepatitis C Screening Completed 01/24/2025 Hepatitis B Vaccines Completed 08/11/2025, 02/24/2025, 01/27/2025 Influenza Vaccine Completed 08/11/2025, , 08/07/2022, Additional history exists HIB Vaccines Aged Out No longer eligi [...] Procedure Name Priority Date/Time Associated Diagnosis Comments LIPID PANEL, STANDARD Routine 04/14/2025 8:03 AM EDT Dyslipidemia HEPATITIS C AB W/REFL TO HCV RNA, QN, PCR Routine 01/24/2025 8:04 AM EDT Transaminitis HEMOGLOBIN A1C Routine 01/24/2025 8:04 AM EDT Prediabetes Full PROPHYLAXIS - ADULT Routine 09/07/2024 8:00 AM EST Dental calculus Dental plaque BITEWINGS - 4 RADIOGRAPHIC IMAGES Routine 09/07/2024 8:00 AM EST PERIODIC ORAL EVALUATION - ESTABLISHED PATIENT Routine 09/07/2024 8:00 AM EST Dental calculus Dental plaque Encounter for dental examination Dental caries Gingival recession, localized from Last 3 Months or Most Recently Relevant to Health Maintenance Results * (ABNORMAL) Lipid Panel, Standard (04/14/2025 8:03 AM EDT) Triglycerides 172(H) <150 mg/dL [facility] Comment:Desirable Triglyceri de: less than 150 mg/dLBorderline High Triglyceride 150-199 mg/dLHigh Triglyceride: 200-499 mg/dLVery High Triglyceride: greater than or equal to 5OO mg/dL Cholesterol 212(H) <200 mg/dL [facility] Comment:Desirable Cholestero l: less than 200 mg/dLBorderline High Cholesterol: 200-239 mg/dLHigh Cholesterol: greater than 239 mg/dL LDL Cholesterol Calculated 146(H) <100 mg/dL [facility] Comment:Desirable LDL: less than 100 mg/dLNear Optimal/Above Optimal LDL: 110- 129 mg/dLBorderline High LDL: 130-159 mg/dLHigh LDL: 160-189 mg/dLVery High LDL: greater than or equal to 190 mg/dL HDL Cholesterol 32(L) >40 mg/dL [facility] Comment:Desirable HDL: great er than 40 mg/dL Note: This HDL assay may give artificially low results in patients with liver disease. Blood Venous blood specimen / Unknown 04/14/2025 8:03 AM EDT 04/14/2025 11:27 AM EDT Marianna Mcmahon [facility] BLOOD ORDERABLES Final Resul t Performing Organization Address [facility] Co de Phone Number [facility] [address] [place] [phone] * Hepatitis C Antibody with Reflex to HCV, RNA, Quantitative, Real-Time PCR (01/24/2025 8:04 AM EDT) Hepatitis C Antibody Nonreactive Nonreactive [facility] Comment:Antibodies to HCV no t detected; does not exclude early acuteHCV infection. Blood Venous blood specimen / Unknown 01/24/2025 8:04 AM EDT 01/24/2025 11:07 AM EDT Marianna Mcmahon [facility] BLOOD ORDERABLES Final Resul t Performing Organization Address [facility] Co de Phone Number [facility] [address] [place] [phone] * (ABNORMAL) Hemoglobin A1c (01/24/2025 8:04 AM EDT) Hemoglobin A1c 6.1(H) <6.0 % [facility] Comment:Hemoglobin A1C Refer ence Range Adults: 4.8 - 6.0 % Non diabetic: < 6.0 % Goal: < 7.0 %Additional Action Suggested: > 8.0 %Note: Hemoglobin A1c results are invalid for patients with abnormal amounts of HbF. Blood transfusions may impact the HbA1c concentration in the patient sample. Estimated Average Glucose 128 mg/dL [facility] Comment:eAG = Estimated ave rage glucose which is %A1C expressed asaverage glucose, using the formula of the [id number] Glucose study (ADAG), Diabetes Care, Vol.31,#8,May. 2007 Blood Venous blood specimen / Unknown 01/24/2025 8:04 AM EDT 01/24/2025 11:07 AM EDT [facility] LAB BLOOD ORDERABLES Final Resul t [facility] [address] [place] [phone] from Last 3 Months or Most Recently Relevant to Health Maintenance Insurance [facility] [address] DENTAL - HSN PARTIAL (MEDICAID) [id number] [id number] Care Teams [employer] Relationship Specialty Start Date End Date Marianna Mcmahon ANP [address] [place] [phone] PCP - General Family Medicine 06/18/21
[2025-08-18 12:06] LABS: Alanine Aminotransferase 31 U/L (0-40); Albumin Level 4.8 g/dL (3.5-5.0); Alkaline Phosphatase 126 U/L (39-117); Anion Gap 13 (12-20); Aspartate Amino Transferase 64 U/L (5-37); Blood Urea Nitrogen 13 mg/dL (9-16); Calcium 10.1 mg/dL (8.4-10.2); Carbon Dioxide 31 mmol/L (22-29); Chloride 102 mmol/L (96-108); Cholesterol 216 mg/dL (<200); Estimated Glomerular Filt Rate > 60; HDL Cholesterol 37 mg/dL (>40); Potassium 5.1 mmol/L (3.3-5.1); Sodium 141 mmol/L (135-145); Total Protein 8.4 g/dL (6.5-8.0)
[2025-08-18 12:21] LABS: Triglycerides 216 mg/dL (<150)
== END 2025-08-18 08:01 | disposition home or self-care (01) ==
LOC: HO.HHCL 08:00
PROVIDERS: PCP Nurse Practitioner Primary Care; Visit Provider Nurse Practitioner Primary Care
DX: I10 Essential (primary) hypertension (principal); E78.5 Hyperlipidemia, unspecified
CPT/HCPCS: 36415; 80053; 80061; 83036

== ENCOUNTER 2025-09-19 08:40 | Outpatient (REF) | payer OTHER, SELFPAY ==
--- OUTSIDE RECORDS SUMMARY | 2025-09-19 09:18 | XMS_ITS | Clinical Summary ---
Author Organization [employer] Address [address] [place] [address] Care Team Providers Care Sheet Sewer Name Role Phone Marianna Mcmahon Primary Care Provider [phone] Allergies Active Allergy Reactions Criticality Noted Date [...] same time. 28 patch 1 4 Active cetirizine (ZyrTEC) 10 MG tabletIndication s:Chronic cough Take 1 tab afternoon 30 tablet 2 4 Active nicotine (Nicoderm CQ) 14 MG/24HR patchIndications :Cigarette nicotine dependence without complication Place 1 patch on the skin 1 (one) time each day at the same time. 42 patch 4 Active losartan (Cozaar) 100 MG tabletIndication s:Benign essential HTN Take 1 tablet (100 mg) by mouth Once per day. 90 tablet 1 09/12/2025 2:58 PM EST 5 Active Aspirin Low Dose 81 MG EC tabletIndication s:Cardiovascular event risk TAKE 1 TABLET BY MOUTH EVERY DAY; START november 03 2024. 90 tablet 1 5 Active hydroCHLOROthiaz svetlana 12.5 MG tabletIndication s:Benign essential HTN Take 1 tablet (12.5 mg) by mouth Once per day. 90 tablet 1 5 08/11/20 26 Active Blood Pressure kitIndications:B enign essential HTN 1 each 2 times daily. 1 kit 5 08/11/20 Active atorvastatin (Lipitor) 80 MG tabletIndication s:Dyslipidemia Take 1 tablet (80 mg) by mouth Once per day. 90 tablet 3 09/19/2025 9:02 AM EST 5 09/12/20 Active nicotine polacrilex (Nicotine Mini) 2 MG lozengeIndicatio ns:Smokes cigarettes Dissolve in mouth in place of cigarette every 1-2 hours 100 lozenge 11 5 09/12/20 25 Discontin ued(Thera py completed ) atorvastatin (Lipitor) 40 MG tabletIndication s:Dyslipidemia Take 1 tablet (40 mg) by mouth Once per day. 90 tablet 1 5 09/12/20 25 Discontin ued(Dose adjustmen t) varenicline (Chantix) 0.5 MG tabletIndication s:Smokes cigarettes Take 0.5 mg PO once daily on Days 1 through 3, then 0.5 mg PO twice daily on Days 4 through 7, then start 1mg twice daily prescription; take with full glass of water 11 tablet 5 09/12/20 25 Discontin ued(Thera py completed ) varenicline (Chantix) 1 MG tabletIndication s:Smokes cigarettes Take 1 tablet (1 mg) by mouth 2 times daily. Take with full glass of water. Start after initial 7d rx. 60 tablet 2 5 09/12/20 25 Discontin ued(Ineff ective) Active Problems Problem Noted Date Diagnosed Date [...] stopping. EKG Interpretation Rate: 70 Rhythm: NSR Aylett: Normal Minor inferior repolarization disturbance, aspecific change [...] reviewing informed consent. Benign essential HTN 04/01/2024 Cigarette nicotine dependence without complicati on 04/01/2024 Overview (04/01/2024): 1/2 PPD Asthma in adult without complication 04/01/2024 Overview (04/01/2024): PRN albuterol, let us know if needing to use > 2x/wk or more Encounters Date Type Department Care Team Description 09/12/2025 2:15 PM EST Office Visit [facility] [address] [place] [phone] Marianna Mcmahon ANP Benign essential HTN (Primary Dx); Cigarette nicotine dependence without complication; Dyslipidemia; Transaminitis 09/12/2025 Travel 09/12/2025 Refill [facility] [address] [place] [phone] Marianna Mcmahon ANP Dyslipidemia; Benign essential HTN 09/09/2025 12:45 PM EST Office Visit [facility] [address] [place] [address] Jessica Wilson Encounter for dental examination (Primary Dx); Dental calculus; Dental caries; Dental plaque 09/09/2025 Telephone [facility] [address] [place] [address] Fraser TangelaROSLYN 09/05/2025 Travel 08/11/2025 2:00 PM EDT Office Visit [facility] [address] [place] [phone] Marianna Mcmahon ANP Benign essential HTN (Primary Dx); Encounter for immunization; Smokes cigarettes; Dyslipidemia; Severe hypertension 08/11/2025 Travel 08/09/2025 Telephone [facility] [address] [place] [phone] Marianna Mcmahon ANP chart prep 08/08/2025 Travel 07/21/[address] [address] Marianna Mcmahon ANP Cardiovascular event risk 07/18/[address] [address] Cristiane Olvera, RN Appointment Request 07/07/2025 Telephone [facility] [address] [place] [address] Jessica Wilson from Last 3 Months Immunizations Immunization Administration Dates Next Due Hep B, adult 08/11/2025,02/24/2025,01/27/2025 Influenza Injectable Quadriv alant Preservative Free IIV4 MDCK 06/17/2019 Influenza injectable quadriv alent preservative free 08/07/2022,09/22/2020 Influenza, Injectable, MDCK, preservative free 06/24/2024 Influenza, seasonal, injecta ble, preservative free 08/11/2025 Moderna Covid-19 Vaccine 12+ 02/19/2021,01/23/20 21 Moderna Covid-19 Vaccine 6+ Bivalent 12/19/2022 Pneumococcal Conjugate PCV 20 09/20/2024 Tdap 06/18/2021 Zoster, Recombinant 02/19/2023,12/19/2022 Family History Medical History Relation Name Comments Diabetes Father Hypertension Father Hypertension Mother Diabetes Sister Hypertension Sister Relation Name Status Comments Father Mother Sister Social History Tobacco Use Types Packs/Day Years Used Date Smoking Tobacco: Every Day Cigarettes 0.5 38.9 Started: 1984 Smokeless Tobacco: Never Tobacco Cessation:Ready [...] Sign Reading Time Taken Comments Blood Pressure 110/70 09/12/2025 2:14 PM EST Pulse 79 09/12/2025 2:14 PM EST Temperature 36.6 C (97.9 F) 09/12/2025 2:14 PM EST Respiratory Rate 13 09/12/2025 2:14 PM EST Oxygen Saturation 97% 09/12/2025 2:14 PM EST Inhaled Oxygen Concentration - - Weight 71.2 kg (157 lb) 09/12/2025 2:14 PM EST Height 167.6 cm (5' 6 ) 09/12/2025 2:14 PM EST Body Mass Index 25.34 09/12/2025 2:14 PM EST Plan of Treatment Upcoming Encounters Date Type Department Care Team (Late st Contact Info) Description 10/03/2025 1:30 PM EST Office Visit [facility] [address] [place] [address] Ivy Malhotra, DDS [address] [place] [address] 12/09/2025 1:00 PM EST Office Visit [facility] [address] [place] [address] Marianna Mcmahon, ANP [address] [place] [address] Health Maintenance Due Date Last Done Comments CT Colonography 1967 FIT DNA/Cologuard 1967 FIT 1967 FOBT 1967 HIV Screening 1967 Sigmoidoscopy 1967 RSV Patients and Patients Aged 60 years or older (1 - Risk 50-74 years 1-dose series) 2017 COVID-19 Vaccine ( season) 2025 08/03/2024, 12/19/2022, 10/17/2021, Additional history exists Alcohol/Substance Use Screening 09/20/2025 09/20/2024 SDOH Screening 12/28/2025 12/28/2024 Dental Oral Exam 03/10/2026 09/09/2025, , 01/21/2018, Additional history exists Dental Prophylaxis 03/10/2026 09/09/2025, 1 11/07/2023, 06/02/2018, Additional history exists Disability Screening 03/31/2026 03/31/2025 Depression Screening 08/11/2026 08/11/2025, 08/11/20 Diabetes: Hemoglobin A1C 08/18/2026 025, 01/24/2025, 04/06/2024 Dental X-Ray: Bitewings 09/10/2026 09/09/20 25, 09/07/2024, 01/21/2018, Additional history exists Tobacco Screening 09/12/2026 09/12/2025 Dental X-Ray: Full Mouth 09/10/2028 09/09/2025 Colonoscopy 09/03/2029 Colorectal Cancer Screening 09/03/2029 Lipid Panel 08/18/2030 08/18/2025, 03/21, 01/24/2025, Additional history exists DTaP/Tdap/Td Vaccines (2 - Td or Tdap) 06/18/2031 06/18/2021 Zoster Vaccines Completed 02/19/2023, 12/19/2022 Pneumococcal Vaccine: 50+ Years Completed 09/20/2024 Hepatitis [...] Procedure Name Priority Date/Time Associated Diagnosis Comments CASE PRESENTATION, DETAILED AND EXTENSIVE TREATMENT PLANNING Routine 09/09/2025 12:45 PM EST ORAL HYGIENE INSTRUCTIONS Routine 09/09/2025 12:45 PM EST Full PROPHYLAXIS - ADULT Routine 09/09/2025 12:45 PM EST INTRAORAL - COMPLETE SERIES OF RADIOGRAPHIC IMAGES Routine 09/09/2025 12:45 PM EST COMPREHENSIVE PERIODONTAL EVALUATION - NEW OR ESTABLISHED PATIENT Routine 09/09/2025 12:45 PM EST Encounter for dental examination Dental calculus Dental caries Dental plaque PERIODIC ORAL EVALUATION - ESTABLISHED PATIENT Routine 09/09/2025 12:45 PM EST Encounter for dental examination Dental calculus Dental caries Dental plaque HEMOGLOBIN A1C Routine 08/18/2025 8:04 AM EDT Dyslipidemia COMPREHENSIVE METABOLIC PANEL Routine 08/18/2025 8:04 AM EDT Benign essential HTN Dyslipidemia LIPID PANEL, STANDARD Routine 08/18/2025 8:04 AM EDT Dyslipidemia HEPATITIS C AB W/REFL TO HCV RNA, QN, PCR Routine 01/24/2025 8:04 AM EDT Transaminitis from Last 3 Months or Most Recently Relevant to Health Maintenance Results * Hemoglobin A1c (08/18/2025 8:04 AM EDT) Hemoglobin A1c 5.9 <6.0 % [facility] Comment:Hemoglobin A1C Refer ence Range Adults: 4.8 - 6.0 % Non diabetic: < 6.0 % Goal: < 7.0 %Additional Action Suggested: > 8.0 %Note: Hemoglobin A1c results are invalid for patients with abnormal amounts of HbF. Blood transfusions may impact the HbA1c concentration in the patient sample. Estimated Average Glucose 123 mg/dL [facility] Comment:eAG = Estimated ave rage glucose which is %A1C expressed asaverage glucose, using the formula of the Y2P-GyrdfogEdzawoy Glucose study (ADAG), Diabetes Care, Vol.31,#8,May. 2007 Blood Venous blood specimen / Unknown 08/18/2025 8:04 AM EDT 08/18/2025 11:30 AM EDT us Marianna Mcmahon ANP LAB BLOOD ORDERABLES Final Resul t Performing Organization Address [facility] Co de Phone Number [facility] [address] [place] [address] [phone] * (ABNORMAL) Lipid Panel, Standard (08/18/2025 8:04 AM EDT) Triglycerides 216(H) <150 mg/dL [facility] Comment:Desirable Triglyceri de: less than 150 mg/dLBorderline High Triglyceride 150-199 mg/dLHigh Triglyceride: 200-499 mg/dLVery High Triglyceride: greater than or equal to 5OO mg/dL Cholesterol 216(H) <200 mg/dL [facility] Comment:Desirable Cholestero l: less than 200 mg/dLBorderline High Cholesterol: 200-239 mg/dLHigh Cholesterol: greater than 239 mg/dL LDL Cholesterol Calculated 136(H) <100 mg/dL [facility] Comment:Desirable LDL: less than 100 mg/dLNear Optimal/Above Optimal LDL: 110- 129 mg/dLBorderline High LDL: 130-159 mg/dLHigh LDL: 160-189 mg/dLVery High LDL: greater than or equal to 190 mg/dL HDL Cholesterol 37(L) >40 mg/dL [facility] Comment:Desirable HDL: great er than 40 mg/dL Note: This HDL assay may give artificially low results in patients with liver disease. Blood Venous blood specimen / Unknown 08/18/2025 8:04 AM EDT 08/18/2025 11:30 AM EDT Marianna Mcmahon [facility] LAB BLOOD ORDERABLES Final Resul t Performing Organization Address [facility]/ZIP Co de Phone Number [facility] [address] [place] [address] [phone] * (ABNORMAL) Comprehensive Metabolic Panel (08/18/2025 8:04 AM EDT) Sodium 141 135 - 145 mmol/L [facility] Potassium 5.1 3.3 - 5.1 mmol/L [facility] Comment:Slight Hemolysis.Int erpret result with caution. Chloride 102 96 - 108 mmol/L [facility] Carbon Dioxide 31(H) 22 - 29 mmol/L [facility] Anion Gap 13 12 - 20 [facility] Urea Nitrogen (BUN) 13 9 - 16 mg/dL [facility] Creatinine, Serum 0.90 0.5 - 1.4 mg/dL [facility] Estimated Glomerular Filt Rate >60 [facility] Comment:Chronic Kidney Disea se: Estimated GFR < 60 mL/min/[id number] Kidney Disease: Estimated GFR < 15 mL/min/1.73m2 Glucose 114 60 - 115 mg/dL [facility] Calcium 10.1 8.4 - 10.2 mg/dL [facility] Bilirubin, Total 0.7 0.0 - 1.0 mg/dL [facility] Aspartate Amino Transferase 64(H) 5 - 37 U/L [facility] Comment:Slight Hemolysis.Int erpret result with caution. Alanine Aminotransferase 31 0 - 40 U/L [facility] Total Protein 8.4(H) 6.5 - 8.0 g/dL [facility] Albumin Level 4.8 3.5 - 5.0 g/dL [facility] Alkaline Phosphatase 126(H) 39 - 117 U/L [facility] Blood Venous blood specimen / Unknown 08/18/2025 8:04 AM EDT 08/18/2025 11:30 AM EDT [facility] LAB BLOOD ORDERABLES Final Resul t [facility] [address] [place] [address] [phone] * Hepatitis C Antibody with Reflex to HCV, RNA, Quantitative, Real-Time PCR (01/24/2025 8:04 AM EDT) Hepatitis C Antibody Nonreactive Nonreactive [facility] Comment:Antibodies to HCV no t detected; does not exclude early acuteHCV infection. Blood Venous blood specimen / Unknown 01/24/2025 8:04 AM EDT 01/24/2025 11:07 AM EDT Marianna CABALLERO LAB BLOOD ORDERABLES Final Resul t [facility] [address] [place] [address] [phone] from Last 3 Months or Most Recently Relevant to Health Maintenance Insurance [id number] [facility] [id number] DENTAL - HSN PARTIAL (MEDICAID) [id number] [address] Care Teams Sheet Sewer Relationship Specialty Start Date End Date Marianna Mcmahon ANP [address] [place] [phone] PCP - General Family Medicine 06/18/21
--- OUTSIDE RECORDS SUMMARY | 2025-09-19 09:18 | XMS_ITS | Encounter Summary ---
Author Organization [employer] Address [address] [place] [address] Care Team Providers Care Phlebotomy Services Technician Name Role Phone Marianna Mcmahon Primary Care Provider [phone] Reason for Visit * Reason Onset Date Comments Med Refill 09/12/2025 Encounter Details Date Type Department Care Team ([facility] st Contact Info) Description 09/12/2025 Refill [facility] [address] [place], [place] [phone] Marianna Mcmahon ANP [address] [place] [address] Dyslipidemia; Benign essential HTN Social History Tobacco Use Types Packs/Day Years Used Date Smoking Tobacco: Every Day Cigarettes 0.5 38.9 Started: 1984 Smokeless Tobacco: Never Alcohol Answer [...] Description 10/03/2025 1:30 PM EST Office Visit [facility] [address] [place] [phone] Ivy Malhotra DDS [address] [place] [phone] 12/09/2025 1:00 PM EST Office Visit [facility] [address] [place] [phone] Marianna Mcmahon ANP [address] [place] [phone] documented as of this encounter Visit Diagnoses Diagnosis Dyslipidemia Other and unspecified hyperlipidemia Benign essential HTN documented in this encounter Additional Health Concerns Assessment Noted Time PHQ-9 Depression Total Score: 2 08/11/20 25 1:44 PM EDT documented as of this encounter Care Teams Phlebotomy Services Technician Relationship Specialty Start Date End Date Marianna Mcmahon ANP [address] [place] [phone] PCP - General Family Medicine 06/18/21 documented as of this encounter
[2025-09-19 12:08] LABS: Alanine Aminotransferase 39 U/L (0-40); Albumin Level 4.6 g/dL (3.5-5.0); Alkaline Phosphatase 131 U/L (39-117); Aspartate Amino Transferase 67 U/L (5-37); Cholesterol 212 mg/dL (<200); HDL Cholesterol 34 mg/dL (>40); Total Protein 7.9 g/dL (6.5-8.0); Triglycerides 273 mg/dL (<150)
== END 2025-09-19 08:41 | disposition home or self-care (01) ==
LOC: HO.HHCL 08:40
PROVIDERS: PCP Nurse Practitioner Primary Care; Visit Provider Nurse Practitioner Primary Care
DX: E78.5 Hyperlipidemia, unspecified (principal); R74.01 Elevation of levels of liver transaminase levels
CPT/HCPCS: 36415; 80061; 80076